=== PATIENT | male | born 1950 | race Caucasian/White ===

== ENCOUNTER 2016-04-27 09:58 | Inpatient (IN) | payer MEDICARE, OTHER ==
[2016-04-27] MEDS ORDERED: CEFTRIAXONE INJ 1000 MG VIAL IV ONE (10:45)
[2016-04-27] MEDS ORDERED: AZITHROMYCIN INJ 500 MG VIAL IV ONE (10:45)
[2016-04-27] MEDS ORDERED: NORMAL SALINE 1000 ML 1,000 ML IV PRN (10:46)
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
[2016-04-27 10:53] LABS: HEMATOCRIT 37.9 % (37.9-51.0); HEMOGLOBIN 13.3 g/dL (13.5-17.0); MEAN CORPUSCULAR HEMOGLOBIN 32.5 pg (27.0-33.4); MEAN CORPUSCULAR HGB CONC 35.1 g/dL (32.0-36.0); MEAN CORPUSCULAR VOLUME 92 fl (80-97); RED CELL DISTRIBUTION WIDTH 12.3 % (11.5-14.0); VENOUS BLOOD BASE EXCESS 2.8 mmol/L; VENOUS BLOOD HCO3 26.8 mmol/L (20-32); VENOUS BLOOD PCO2 39.2 mmHg (35-63); VENOUS BLOOD PH 7.45 (7.30-7.42); WHITE BLOOD COUNT 10.4 10^3/uL (4.0-10.5)
[2016-04-27 10:58] LABS: PROTHROMBIN TIME 13.6 SEC (11.4-15.4)
[2016-04-27 11:14] LABS: ALANINE AMINOTRANSFERASE 42 U/L (21-72); ALBUMIN 4.1 g/dL (3.5-5.0); ALKALINE PHOSPHATASE 90 U/L (38-126); ANION GAP 13 (5-19); ASPARTATE AMINO TRANSFERASE 41 U/L (17-59); BAND NEUTROPHILS % (MANUAL) 7 % (3-5); BASOPHILS % (MANUAL) 1 % (0-2); BILIRUBIN,TOTAL 0.8 mg/dL (0.2-1.3); BLOOD UREA NITROGEN 20 mg/dL (7-20); CARBON DIOXIDE 26 mmol/L (22-30); CHLORIDE 95 mmol/L (98-107); CREATININE RESULT 0.68 mg/dL (0.52-1.25); EOSINOPHILS % (MANUAL) 0 % (0-6); GLUCOSE 147 mg/dL (75-110); LYMPHOCYTES % (MANUAL) 9 % (13-45); RBC MORPHOLOGY COMMENT NORMO-CYTIC/CHROMIC; SODIUM 134.1 mmol/L (137-145); TOTAL CELLS COUNTED 100; TOTAL PROTEIN 6.6 g/dL (6.3-8.2)
[2016-04-27] MEDS ORDERED: POTASSIUM CHLORIDE 20 MEQ/15 ML UDCUP PO ONE ×2 (11:28→13:30)
[2016-04-27 15:22] LABS: APPEARANCE,URINE HAZY; BILIRUBIN,URINE NEGATIVE (NEGATIVE); GLUCOSE, URINE NEGATIVE (NEGATIVE); KETONES,URINE NEGATIVE (NEGATIVE); LEUKOCYTE ESTERASE,URINE NEGATIVE (NEGATIVE); NITRITE,URINE NEGATIVE (NEGATIVE); PROTEIN,URINE NEGATIVE (NEGATIVE); UROBILINOGEN,URINE NEGATIVE mg/dL (<2.0)
[2016-04-27 15:23] LABS: URINE SPECIFIC GRAVITY 1.012
[2016-04-27] MEDS ORDERED: OSELTAMIVIR PHOSPHATE 75 MG CAPSULE PO ONE (16:17)
[2016-04-27] MEDS ORDERED: ACETAMINOPHEN 325 MG TABLET PO PRN (16:19)
[2016-04-27] MEDS ORDERED: ASPIRIN 81 MG TABLET, ENT COATED PO PRN (16:20)
[2016-04-27] MEDS ORDERED: ALBUTEROL SULFATE HFA (90 MCG/PUFF) 8 GM MDI (1 MDI/ER DISP) IH PRN (16:20)
--- NOTE | 2016-04-27 16:24 | PDOC H&P ---
History of Present Illness Admission Date/PCP: 04/27/16 13:14 MAIDA LY MD Patient complains of: Fever History of Present Illness: EARL HAWLEY is a 65 year old male brought to the ED by EMS personnel due to reported episode of fall, unsteady stance and fever. There was associated coughing, nasal and sinus congestion and general unwell feeling. There was reported axillary temperature of 101F. Patient denied any associated difficulty with breathing, chest pain, headache, dizziness, nausea, vomiting or abdominal pain. There is long standing issue with diarrhea. The patient denies any falling although neighbor reported unsteadiness of stance. Past Medical History Cardiac Medical History: Reports: Hypertension Social History Smoking Status: Former Smoker - Advance Directive Resuscitation Status: Full Code Family History Parental Family History Reviewed: Yes Children Family History Reviewed: Yes Sibling(s) Family History Reviewed.: Yes Medication/Allergy Home Medications: Albuterol Sulfate [Proair HFA] 2 puff IH Q4HP PRN 04/27/16 Aspirin [Aspirin EC] 81 mg PO DAILY PRN 04/27/16 Hydrochlorothiazide [Hydrodiuril 25 mg Tablet] 25 mg PO QAM 04/27/16 Lisinopril [Prinivil 10 mg Tablet] 10 mg PO DAILY 04/27/16 Pnv No.122/Iron/Folic Acid [ Multi Tablet] 1 each PO DAILY 04/27/16 Allergies/Adverse Reactions: No Known Allergies Allergy (Unverified 04/27/16 14:23) Review of Systems Constitutional: PRESENT: chills, fever(s). ABSENT: as per HPI, anorexia, fatigue, headache(s), night sweats, weakness, weight gain, weight loss, other Eyes: PRESENT: visual disturbances Ears: PRESENT: hearing changes Nose, Mouth, and Throat: ABSENT: as per HPI, headache(s), mouth pain, sore throat, vertigo, other Cardiovascular: ABSENT: as per HPI, chest pain, dyspnea on exertion, edema, orthropnea, palpitations, other Gastrointestinal: PRESENT: diarrhea. ABSENT: as per HPI, abdominal pain, bloating, coffee ground emesis, constipation, dysphagia, heartburn, hematemesis , hematochezia, melena, nausea, vomiting, other Genitourinary: ABSENT: as per HPI, difficulty urinating, dysuria, hematuria, nocturia, other Musculoskeletal: ABSENT: as per HPI, back pain, deformity, joint swelling, muscle weakness, other Integumentary: ABSENT: as per HPI, diaphoresis, erythema, lesions, pruritus, rash, wounds, other Neurological: PRESENT: focal weakness - left sided hemiparesis due to prior traumatic brain injury.. ABSENT: as per HPI, abnormal gait, abnormal movements , abnormal speech, confusion, convulsions, dizziness, frequent falls, lack of coordination, memory loss, numbness, paresthesias, restless legs, syncope, tingling, tremor(s), vertigo, weakness, other Endocrine: ABSENT: as per HPI, cold intolerance, flushing, heat intolerance, menstrual abnormalities, polydipsia, polyphagia, polyuria, other Hematologic/Lymphatic: ABSENT: as per HPI, easy bleeding, easy bruising, lymphadenopathy, other Physical Exam Vital Signs: Temp Pulse Resp BP Pulse Ox 98.7 F 103 H 20 146/106 H 97 04/27/16 15:48 04/27/16 15:48 04/27/16 15:48 04/27/16 15:48 04/27/16 15:48 Intake & Output 04/26/16 04/27/16 04/28/16 06:59 06:59 06:59 Weight 107.5 kg General appearance: PRESENT: no acute distress, cooperative, obese Head exam: PRESENT: atraumatic, normocephalic Eye exam: PRESENT: conjunctiva pink, EOMI, PERRLA. ABSENT: scleral icterus Ear exam: PRESENT: normal external ear exam Mouth exam: PRESENT: moist, tongue midline Throat exam: ABSENT: post pharyngeal erythema, tonsillar erythema, tonsillar exudate, tonsillogmegaly, other Neck exam: ABSENT: carotid bruit, full ROM, JVD, lymphadenopathy, meningismus, tenderness, thyromegaly, tracheal deviation, tracheostomy, other Respiratory exam: PRESENT: crackles - scattered at lung bases, decreased breath sounds - at lung bases. ABSENT: accessory muscle use, chest wall tenderness, clear to auscultation charline, prolonged expiratory phas, rales, retraction, rhonchi , stridor, symmetrical, tachypnea, unlabored, wheezes, other Cardiovascular exam: PRESENT: RRR. ABSENT: diastolic murmur, rubs, systolic murmur GI/Abdominal exam: PRESENT: normal bowel sounds, soft. ABSENT: distended, guarding, mass, organolmegaly, rebound, tenderness Musculoskeletal exam: PRESENT: ambulatory, deformity Neurological exam: PRESENT: alert, awake, oriented to person, oriented to place , oriented to time, oriented to situation, CN II-XII grossly intact. ABSENT: motor sensory deficit Psychiatric exam: PRESENT: appropriate affect, normal mood. ABSENT: homicidal ideation, suicidal ideation Skin exam: PRESENT: dry, intact, warm. ABSENT: cyanosis, rash Results Laboratory Results: 04/27/16 14:30 Urine Color YELLOW Urine Appearance HAZY Urine pH 5.0 Ur Specific [place] 1.012 Urine Protein NEGATIVE Urine Glucose (UA) NEGATIVE Urine Ketones NEGATIVE Urine Blood MODERATE H Urine Nitrite NEGATIVE Ur Leukocyte Esterase NEGATIVE Urine WBC (Auto) 1 Urine RBC (Auto) 1 Impressions: Chest X-Ray 04/27/16 10:00 IMPRESSION: Atelectasis or early pneumonia left lower lobe. Venous Doppler Study 04/27/16 10:53 IMPRESSION: NO EVIDENCE DVT OR SVT IN THE RIGHT ARM. Assessment & Plan - Diagnosis (1) Flu Is this a current diagnosis for this admission?: YesPlan: See admitting physician orders. (2) Lobar pneumonia, unspecified organism Is this a current diagnosis for this admission?: YesPlan: See admitting physician orders. (3) HTN (hypertension) Qualifiers: Hypertension type: essential hypertension Qualified Code(s): I10 - Essential (primary) hypertension Is this a current diagnosis for this admission?: YesPlan: See admitting physician orders. (4) Personal history of traumatic brain injury Is this a current diagnosis for this admission?: YesPlan: See admitting physician orders. - Time Time Spent: 50 to 70 Minutes Medications reviewed and adjusted accordingly: Yes Anticipated discharge: Home - [facility] / [facility] environment Within: Other - Inpatient Certification Based on my medical assessment, after consideration of the patient's comorbidities, presenting symptoms, or acuity I expect that the services needed warrant INPATIENT care.: Yes I certify that my determination is in accordance with my understanding of Medicare's requirements for reasonable and necessary INPATIENT services [42 CFR 412.3e].: Yes Medical Necessity: Significant Comorbidiites Make Outpatient Treatment Too Risky , Need For IV Fluids, Need For Continuous Telemetry Monitoring, Need for Nebulizer Therapy and Monitoring of Response, Need for IV Antibiotics, Risk of Complication if Not Cared For in Hospital Post Hospital Care: D/C Program Dir Documentation - Plan Summary Plan Summary: See admitting physician orders.
--- NOTE | 2016-04-27 17:40 | EKG REPORT ---
SEVERITY:- BORDERLINE ECG - SINUS RHYTHM BORDERLINE T WAVE ABNORMALITIES : Confirmed by: Yonis Ward MD 27-Apr-2016 17:39:28
[2016-04-27 17:53] LABS: PROTHROMBIN TIME 13.2 SEC (11.4-15.4)
[2016-04-27] MEDS ORDERED: OSELTAMIVIR PHOSPHATE 75 MG CAPSULE ONE (21:06)
[2016-04-28] MEDS: LANSOPRAZOLE 30 MG TAB.RAP.DR PO SCH (05:46)
[2016-04-28 06:30] LABS: ALANINE AMINOTRANSFERASE 48 U/L (21-72); ALBUMIN 2.9 g/dL (3.5-5.0); ALKALINE PHOSPHATASE 81 U/L (38-126); ANION GAP 7 (5-19); ASPARTATE AMINO TRANSFERASE 90 U/L (17-59); BILIRUBIN,TOTAL 0.6 mg/dL (0.2-1.3); BLOOD UREA NITROGEN 19 mg/dL (7-20); CALCIUM 8.6 mg/dL (8.4-10.2); CARBON DIOXIDE 29 mmol/L (22-30); CHLORIDE 102 mmol/L (98-107); CREATININE RESULT 0.68 mg/dL (0.52-1.25); GLUCOSE 93 mg/dL (75-110); POTASSIUM 3.5 mmol/L (3.6-5.0); SODIUM 138.2 mmol/L (137-145)
[2016-04-28 06:38] LABS: HEMATOCRIT 36.9 % (37.9-51.0); HEMOGLOBIN 13.1 g/dL (13.5-17.0); HGB HCT DIFFERENCE 2.4; MEAN CORPUSCULAR HEMOGLOBIN 32.8 pg (27.0-33.4); MEAN CORPUSCULAR HGB CONC 35.6 g/dL (32.0-36.0); MEAN CORPUSCULAR VOLUME 92 fl (80-97); RED BLOOD COUNT 3.99 10^6/uL (4.35-5.55); RED CELL DISTRIBUTION WIDTH 12.6 % (11.5-14.0); WHITE BLOOD COUNT 6.6 10^3/uL (4.0-10.5)
[2016-04-28] MEDS ORDERED: ALBUTEROL SULFATE HFA (90 MCG/PUFF) 200 PUFF/8.5 GM MDI IH PRN (07:14)
[2016-04-28] MEDS: ENOXAPARIN SODIUM INJ 40 MG/0.4 ML DISP.SYRIN SUBCUT SCH (08:48)
[2016-04-28] MEDS: LISINOPRIL 10 MG TABLET PO SCH (09:43)
[2016-04-28] MEDS: ASPIRIN 81 MG TABLET, CHEWABLE PO SCH (09:43)
[2016-04-28] MEDS: CEFTRIAXONE 1 GM/D5W RTU 50 ML IV SCH (09:44)
[2016-04-28] MEDS ORDERED: (PENDING PHARMACY ID) (Pnv No.122/Iron/Folic Acid [Prenatal Multi Tablet] 1 EACH) PO SCH (10:00)
[2016-04-28] MEDS: OSELTAMIVIR PHOSPHATE 75 MG CAPSULE PO SCH ×2 (12:00→21:11)
[2016-04-28] MEDS: PRENATAL VITAMIN W-O CA NO5/FE FUMARATE/FA CAPSULE PO SCH (12:01)
[2016-04-28] MEDS: AZITHROMYCIN 500 MG in DEXTROSE 5%-WATER 250 ML IV SCH (12:01)
--- NOTE | 2016-04-28 12:56 | PDOC PROGRESS REPORT ---
Subjective Progress Note for:: 04/28/16 Subjective:: Patient reported resolution of his fever since admission. Breathing is improving. No chest pain. No nausea, vomiting, or abdominal pain. Tolerating oral feeding. Remain on Tamiflu, Azithromycin and Ceftriaxone coverage. Physical Exam Vital Signs: Temp Pulse Resp BP Pulse Ox 98.2 F 82 18 97/56 L 94 04/28/16 12:19 04/28/16 12:19 04/28/16 12:19 04/28/16 12:19 04/28/16 12:19 Intake & Output 04/27/16 04/28/16 04/29/16 06:59 06:59 06:59 Intake Total 1824 Output Total 400 Balance 1424 Weight 109.8 kg General appearance: PRESENT: no acute distress, cooperative, morbidly obese Head exam: PRESENT: atraumatic, normocephalic Eye exam: PRESENT: conjunctiva pink, EOMI, PERRLA Mouth exam: PRESENT: moist Throat exam: ABSENT: post pharyngeal erythema, tonsillar erythema, tonsillar exudate, tonsillogmegaly, other Neck exam: PRESENT: full ROM. ABSENT: carotid bruit, JVD, lymphadenopathy, thyromegaly Respiratory exam: PRESENT: crackles - at lung bases, decreased breath sounds - at lung bases Cardiovascular exam: PRESENT: RRR. ABSENT: diastolic murmur, rubs, systolic murmur GI/Abdominal exam: PRESENT: normal bowel sounds, soft. ABSENT: distended, guarding, mass, organolmegaly, rebound, tenderness Extremities exam: PRESENT: full ROM Musculoskeletal exam: PRESENT: deformity - due to prior injury Neurological exam: PRESENT: alert, awake, CN II-XII grossly intact, motor sensory deficit Psychiatric exam: PRESENT: appropriate affect, normal mood. ABSENT: homicidal ideation, suicidal ideation Skin exam: PRESENT: dry, intact, warm. ABSENT: cyanosis, rash Results Laboratory Results: 04/28/16 05:37 04/28/16 05:37 04/28/16 04/28/16 05:37 05:37 WBC 6.6 RBC 3.99 L Hgb 13.1 L Hct 36.9 L MCV 92 MCH 32.8 MCHC 35.6 RDW 12.6 Plt Count 122 L Seg Neutrophils % Not Reportable Lymphocytes % Not Reportable Monocytes % Not Reportable Eosinophils % Not Reportable Basophils % Not Reportable Absolute Neutrophils Not Reportable Absolute Lymphocytes Not Reportable Absolute Monocytes Not Reportable Absolute Eosinophils Not Reportable Absolute Basophils Not Reportable Sodium 138.2 Potassium 3.5 L Chloride 102 Carbon Dioxide 29 Anion Gap 7 BUN 19 Creatinine 0.68 Est GFR ( Amer) > 60 Est GFR (Non-Af Amer) > 60 Glucose 93 Calcium 8.6 Total Bilirubin 0.6 AST 90 H ALT 48 Alkaline Phosphatase 81 Total Protein 6.0 L Albumin 2.9 L Impressions: Chest X-Ray 04/27/16 10:00 IMPRESSION: Atelectasis or early pneumonia left lower lobe. Venous Doppler Study 04/27/16 10:53 IMPRESSION: NO EVIDENCE DVT OR SVT IN THE RIGHT ARM. Assessment & Plan - Diagnosis (1) Flu Is this a current diagnosis for this admission?: YesPlan: Continue Tamiflu therapy and encourage adequate oral fluid intake. (2) Lobar pneumonia, unspecified organism Is this a current diagnosis for this admission?: YesPlan: Maintain on Azithromycin and Ceftriaxone coverage. Monitor clinical and laboratory indices for ongoing infection. (3) HTN (hypertension) Qualifiers: Hypertension type: essential hypertension Qualified Code(s): I10 - Essential (primary) hypertension Is this a current diagnosis for this admission?: YesPlan: Maintain on current mediation management. (4) Personal history of traumatic brain injury Is this a current diagnosis for this admission?: Yes - Time Time Spent with patient: 25-34 minutes Medications reviewed and adjusted accordingly: Yes Anticipated discharge: Home with Homehealth - Inpatient Certification Medical Necessity: Need Close Monitoring Due to Risk of Patient Decompensation, Need For IV Fluids, Need For Continuous Telemetry Monitoring, Need for IV Antibiotics, Risk of Complication if Not Cared For in Hospital Post Hospital Care: D/C [employer] Worker Documentation - Plan Summary Plan Summary: See attending physician orders.
[2016-04-28] MEDS ORDERED: POTASSIUM CHLORIDE 10 MEQ TABLET.SA PO ONE (13:30)
[2016-04-28] MEDS: POTASSIUM CHLORIDE 10 MEQ TABLET.SA PO SCH ×2 (15:06→17:10)
[2016-04-29] MEDS: LANSOPRAZOLE 30 MG TAB.RAP.DR PO SCH (05:38)
[2016-04-29 06:47] LABS: ABSOLUTE EOSINOPHILS # (AUTO) 0.1 10^3/uL (0.0-0.6); ABSOLUTE LYMPHOCYTES (AUTO) 1.5 10^3/uL (0.5-4.7); ABSOLUTE MONOCYTES (AUTO) 0.4 10^3/uL (0.1-1.4); ABSOLUTE NEUT (AUTO) 2.8 10^3/uL (1.7-8.2); BASOPHILS % (AUTO) 0.5 % (0-2); EOSINOPHILS % (AUTO) 2.3 % (0-6); HEMATOCRIT 34.1 % (37.9-51.0); HEMOGLOBIN 11.7 g/dL (13.5-17.0); LYMPHOCYTES % (AUTO) 30.4 % (13-45); MEAN CORPUSCULAR HEMOGLOBIN 32.3 pg (27.0-33.4); MEAN CORPUSCULAR HGB CONC 34.4 g/dL (32.0-36.0); MEAN CORPUSCULAR VOLUME 94 fl (80-97); MONOCYTES % (AUTO) 8.9 % (3-13); RED BLOOD COUNT 3.63 10^6/uL (4.35-5.55); SEGMENTED NEUTROPHILS % (AUTO) 57.9 % (42-78); WHITE BLOOD COUNT 4.8 10^3/uL (4.0-10.5)
[2016-04-29 07:10] LABS: ANION GAP 7 (5-19); BLOOD UREA NITROGEN 19 mg/dL (7-20); CALCIUM 8.7 mg/dL (8.4-10.2); CARBON DIOXIDE 28 mmol/L (22-30); CHLORIDE 105 mmol/L (98-107); CREATININE RESULT 0.61 mg/dL (0.52-1.25); GLUCOSE 93 mg/dL (75-110); POTASSIUM 4.2 mmol/L (3.6-5.0); SODIUM 139.7 mmol/L (137-145)
--- NOTE | 2016-04-29 07:11 | PDOC PROGRESS REPORT ---
Subjective Progress Note for:: 04/29/16 Subjective:: No fever or chills. No difficulty with breathing or chest pain. No nausea, vomiting, or abdominal pain. Tolerating oral feeding. Remain on Tamiflu, Azithromycin and Ceftriaxone coverage. Physical Exam Vital Signs: Temp Pulse Resp BP Pulse Ox 98.0 F 80 17 120/64 97 04/29/16 03:20 04/29/16 03:20 04/29/16 03:20 04/29/16 03:20 04/29/16 03:20 Intake & Output 04/28/16 04/29/16 04/30/16 06:59 06:59 06:59 Intake Total 1824 4830 Output Total 400 900 Balance 1424 3930 Weight 109.8 kg 109.8 kg Physical Exam: General appearance: PRESENT: no acute distress, cooperative, morbidly obese Head exam: PRESENT: atraumatic, normocephalic Eye exam: PRESENT: conjunctiva pink, EOMI, PERRLA Mouth exam: PRESENT: moist Throat exam: ABSENT: post pharyngeal erythema, tonsillar erythema, tonsillar exudate, tonsillogmegaly, other Neck exam: PRESENT: full ROM. ABSENT: carotid bruit, JVD, lymphadenopathy, thyromegaly Respiratory exam: PRESENT: crackles - at lung bases, decreased breath sounds - at lung bases Cardiovascular exam: PRESENT: RRR. ABSENT: diastolic murmur, rubs, systolic murmur GI/Abdominal exam: PRESENT: normal bowel sounds, soft. ABSENT: distended, guarding, mass, organolmegaly, rebound, tenderness Extremities exam: PRESENT: full ROM Musculoskeletal exam: PRESENT: deformity - due to prior injury Neurological exam: PRESENT: alert, awake, CN II-XII grossly intact, motor sensory deficit Psychiatric exam: PRESENT: appropriate affect, normal mood. ABSENT: homicidal ideation, suicidal ideation Skin exam: PRESENT: dry, intact, warm. ABSENT: cyanosis, rash Results Laboratory Results: 04/29/16 06:34 04/28/16 04/29/16 05:37 06:34 WBC 4.8 RBC 3.63 L Hgb 11.7 L Hct 34.1 L MCV 94 MCH 32.3 MCHC 34.4 RDW 13.0 Plt Count 110 L Seg Neutrophils % 57.9 Lymphocytes % 30.4 Monocytes % 8.9 Eosinophils % 2.3 Basophils % 0.5 Absolute Neutrophils 2.8 Absolute Lymphocytes 1.5 Absolute Monocytes 0.4 Absolute Eosinophils 0.1 Absolute Basophils 0.0 Magnesium 1.9 Impressions: Chest X-Ray 04/27/16 10:00 IMPRESSION: Atelectasis or early pneumonia left lower lobe. Venous Doppler Study 04/27/16 10:53 IMPRESSION: NO EVIDENCE DVT OR SVT IN THE RIGHT ARM. Assessment & Plan - Diagnosis (1) Flu Is this a current diagnosis for this admission?: YesPlan: Continue Tamiflu therapy and encourage adequate oral fluid intake. (2) Lobar pneumonia, unspecified organism Is this a current diagnosis for this admission?: YesPlan: Maintain on Azithromycin and Ceftriaxone coverage. Monitor clinical and laboratory indices for ongoing infection. (3) HTN (hypertension) Qualifiers: Hypertension type: essential hypertension Qualified Code(s): I10 - Essential (primary) hypertension Is this a current diagnosis for this admission?: YesPlan: Maintain on current mediation management. (4) Personal history of traumatic brain injury Is this a current diagnosis for this admission?: YesPlan: Continue current attending physician orders. - Time Time Spent with patient: 25-34 minutes Medications reviewed and adjusted accordingly: Yes Anticipated discharge: Home with Homehealth Within: Other - Inpatient Certification Based on my medical assessment, after consideration of the patient's comorbidities, presenting symptoms, or acuity I expect that the services needed warrant INPATIENT care.: Yes I certify that my determination is in accordance with my understanding of Medicare's requirements for reasonable and necessary INPATIENT services [42 CFR 412.3e].: Yes Medical Necessity: Need Close Monitoring Due to Risk of Patient Decompensation, Need For IV Fluids, Need for IV Antibiotics, Risk of Complication if Not Cared For in Hospital Post Hospital Care: D/C Central Office Supervisor Documentation - Plan Summary Plan Summary: See attending physician orders
[2016-04-29] MEDS: ENOXAPARIN SODIUM INJ 40 MG/0.4 ML DISP.SYRIN SUBCUT SCH (08:56)
[2016-04-29] MEDS: CEFTRIAXONE 1 GM/D5W RTU 50 ML IV SCH (09:55)
[2016-04-29] MEDS: PRENATAL VITAMIN W-O CA NO5/FE FUMARATE/FA CAPSULE PO SCH (10:00)
[2016-04-29] MEDS: OSELTAMIVIR PHOSPHATE 75 MG CAPSULE PO SCH ×2 (10:01→21:54)
[2016-04-29] MEDS: ASPIRIN 81 MG TABLET, CHEWABLE PO SCH (10:01)
[2016-04-29] MEDS: LISINOPRIL 10 MG TABLET PO SCH (10:02)
[2016-04-29] MEDS: AZITHROMYCIN 500 MG in DEXTROSE 5%-WATER 250 ML IV SCH (11:12)
[2016-04-30] MEDS: NORMAL SALINE 1000 ML 1,000 ML IV PRN ×2 (05:05→16:11)
[2016-04-30] MEDS: LANSOPRAZOLE 30 MG TAB.RAP.DR PO SCH (05:05)
--- NOTE | 2016-04-30 07:25 | PDOC PROGRESS REPORT ---
Subjective Progress Note for:: 04/30/16 Subjective:: No fever or chills. No difficulty with breathing or chest pain. No nausea, vomiting, or abdominal pain. Tolerating oral feeding. Remain on Azithromycin, Ceftriaxone, and Tamiflu coverage. Physical Exam Vital Signs: Temp Pulse Resp BP Pulse Ox 98.1 F 74 18 130/80 H 95 04/30/16 04:17 04/30/16 04:17 04/30/16 04:17 04/30/16 04:17 04/30/16 04:17 Intake & Output 04/29/16 04/30/16 05/01/16 06:59 06:59 06:59 Intake Total 4830 4307 Output Total 900 1425 Balance 3930 2882 Weight 109.8 kg 109.8 kg General appearance: PRESENT: no acute distress, obese Eye exam: PRESENT: conjunctiva pink, EOMI, PERRLA Mouth exam: PRESENT: moist Neck exam: PRESENT: full ROM. ABSENT: carotid bruit, JVD, lymphadenopathy, thyromegaly Respiratory exam: ABSENT: accessory muscle use, chest wall tenderness, clear to auscultation charline, crackles, decreased breath sounds, prolonged expiratory phas, rales, retraction, rhonchi, stridor, symmetrical, tachypnea, unlabored, wheezes , other Cardiovascular exam: PRESENT: RRR. ABSENT: diastolic murmur, rubs, systolic murmur GI/Abdominal exam: PRESENT: normal bowel sounds, soft. 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 ABSENT: homicidal ideation, suicidal ideation Skin exam: PRESENT: dry, intact, warm. ABSENT: cyanosis, rash Results Laboratory Results: 04/29/16 06:34 04/29/16 06:34 Impressions: Chest X-Ray 04/27/16 10:00 IMPRESSION: Atelectasis or early pneumonia left lower lobe. Venous Doppler Study 04/27/16 10:53 IMPRESSION: NO EVIDENCE DVT OR SVT IN THE RIGHT ARM. Assessment & Plan - Diagnosis (1) Flu Is this a current diagnosis for this admission?: YesPlan: Continue Tamiflu therapy and encourage adequate oral fluid intake. (2) Lobar pneumonia, unspecified organism Is this a current diagnosis for this admission?: YesPlan: Maintain on IV Ceftriaxone coverage. Change to oral Azithromycin 5000mg po daily. Monitor clinical and laboratory indices for ongoing infection. (3) HTN (hypertension) Qualifiers: Hypertension type: essential hypertension Qualified Code(s): I10 - Essential (primary) hypertension Is this a current diagnosis for this admission?: YesPlan: Maintain on current mediation management. (4) Personal history of traumatic brain injury Is this a current diagnosis for this admission?: YesPlan: Continue current attending physician orders. PT evaluation for ambulatory safety. - Time Time Spent with patient: 25-34 minutes Medications reviewed and adjusted accordingly: Yes Anticipated discharge: Home with Homehealth - Inpatient Certification Medical Necessity: Need Close Monitoring Due to Risk of Patient Decompensation, Need For IV Fluids, Need for IV Antibiotics, Risk of Complication if Not Cared For in Hospital - Plan Summary Plan Summary: See attending physician orders.
[2016-04-30] MEDS: ENOXAPARIN SODIUM INJ 40 MG/0.4 ML DISP.SYRIN SUBCUT SCH (11:27)
[2016-04-30] MEDS: ASPIRIN 81 MG TABLET, CHEWABLE PO SCH (11:28)
[2016-04-30] MEDS: LISINOPRIL 10 MG TABLET PO SCH (11:29)
[2016-04-30] MEDS: AZITHROMYCIN 250 MG TABLET PO SCH (11:30)
[2016-04-30] MEDS: OSELTAMIVIR PHOSPHATE 75 MG CAPSULE PO SCH ×2 (11:30→22:12)
[2016-04-30] MEDS: PRENATAL VITAMIN W-O CA NO5/FE FUMARATE/FA CAPSULE PO SCH (11:30)
[2016-04-30] MEDS: CEFTRIAXONE 1 GM/D5W RTU 50 ML IV SCH (11:34)
[2016-05-01] MEDS: LANSOPRAZOLE 30 MG TAB.RAP.DR PO SCH (06:17)
[2016-05-01] MEDS: CEFTRIAXONE 1 GM/D5W RTU 50 ML IV SCH (09:33)
[2016-05-01] MEDS: PRENATAL VITAMIN W-O CA NO5/FE FUMARATE/FA CAPSULE PO SCH (09:33)
[2016-05-01] MEDS: OSELTAMIVIR PHOSPHATE 75 MG CAPSULE PO SCH ×2 (09:33→22:28)
[2016-05-01] MEDS: LISINOPRIL 10 MG TABLET PO SCH (09:33)
[2016-05-01] MEDS: ASPIRIN 81 MG TABLET, CHEWABLE PO SCH (09:33)
[2016-05-01] MEDS: AZITHROMYCIN 250 MG TABLET PO SCH (09:33)
[2016-05-01] MEDS: ENOXAPARIN SODIUM INJ 40 MG/0.4 ML DISP.SYRIN SUBCUT SCH (09:34)
--- NOTE | 2016-05-01 18:37 | PDOC PROGRESS REPORT ---
Subjective Progress Note for:: 05/01/16 Subjective:: No fever or chills. No chest pain or difficulty with breathing. No nausea, vomiting, or abdominal pain. Tolerating oral feeding. Remain on Tamiflu, Azithromycin, and Ceftriaxone coverage. Blood culture is no growth x 4 days. Physical Exam Vital Signs: Temp Pulse Resp BP Pulse Ox 98.4 F 76 16 148/68 H 97 05/01/16 15:21 05/01/16 15:21 05/01/16 15:21 05/01/16 15:21 05/01/16 17:59 Intake & Output 04/30/16 05/01/16 05/02/16 06:59 06:59 06:59 Intake Total 4307 3420 Output Total 1425 1900 Balance 2882 1520 Weight 109.8 kg Physical Exam: General appearance: PRESENT: no acute distress, obese Eye exam: PRESENT: conjunctiva pink, EOMI, PERRLA Mouth exam: PRESENT: moist Neck exam: PRESENT: full ROM. ABSENT: carotid bruit, JVD, lymphadenopathy, thyromegaly Respiratory exam: ABSENT: accessory muscle use, chest wall tenderness, clear to auscultation charline, crackles, decreased breath sounds, prolonged expiratory phase , rales, retraction, rhonchi, stridor, symmetrical, tachypnea, unlabored, wheezes, other Cardiovascular exam: PRESENT: RRR. ABSENT: diastolic murmur, rubs, systolic murmur GI/Abdominal exam: PRESENT: normal bowel sounds, soft. 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 ABSENT: homicidal ideation, suicidal ideation Skin exam: PRESENT: dry, intact, warm. ABSENT: cyanosis, rash Results Laboratory Results: 04/29/16 06:34 04/29/16 06:34 Impressions: Chest X-Ray 04/27/16 10:00 IMPRESSION: Atelectasis or early pneumonia left lower lobe. Venous Doppler Study 04/27/16 10:53 IMPRESSION: NO EVIDENCE DVT OR SVT IN THE RIGHT ARM. Assessment & Plan - Diagnosis (1) Flu Is this a current diagnosis for this admission?: YesPlan: Continue Tamiflu therapy and encourage adequate oral fluid intake. (2) Lobar pneumonia, unspecified organism Is this a current diagnosis for this admission?: YesPlan: Maintain on IV Ceftriaxone and oral Azithromycin coverage. Monitor clinical and laboratory indices for ongoing infection. (3) HTN (hypertension) Qualifiers: Hypertension type: essential hypertension Qualified Code(s): I10 - Essential (primary) hypertension Is this a current diagnosis for this admission?: YesPlan: Maintain on current mediation management. (4) Personal history of traumatic brain injury Is this a current diagnosis for this admission?: YesPlan: Continue current attending physician orders. - Time Time Spent with patient: 25-34 minutes Medications reviewed and adjusted accordingly: Yes - Inpatient Certification Based on my medical assessment, after consideration of the patient's comorbidities, presenting symptoms, or acuity I expect that the services needed warrant INPATIENT care.: Yes I certify that my determination is in accordance with my understanding of Medicare's requirements for reasonable and necessary INPATIENT services [42 CFR 412.3e].: Yes Medical Necessity: Need Close Monitoring Due to Risk of Patient Decompensation, Need For IV Fluids, Need For Continuous Telemetry Monitoring, Need for IV Antibiotics, Risk of Complication if Not Cared For in Hospital 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
[2016-05-02 04:59] LABS: ABSOLUTE EOSINOPHILS # (AUTO) 0.3 10^3/uL (0.0-0.6); ABSOLUTE LYMPHOCYTES (AUTO) 1.8 10^3/uL (0.5-4.7); ABSOLUTE MONOCYTES (AUTO) 0.5 10^3/uL (0.1-1.4); ABSOLUTE NEUT (AUTO) 4.4 10^3/uL (1.7-8.2); BASOPHILS % (AUTO) 0.6 % (0-2); EOSINOPHILS % (AUTO) 4.6 % (0-6); HEMATOCRIT 34.9 % (37.9-51.0); HGB HCT DIFFERENCE 1.1; LYMPHOCYTES % (AUTO) 25.5 % (13-45); MEAN CORPUSCULAR HEMOGLOBIN 32.1 pg (27.0-33.4); MEAN CORPUSCULAR HGB CONC 34.3 g/dL (32.0-36.0); MEAN CORPUSCULAR VOLUME 94 fl (80-97); MONOCYTES % (AUTO) 7.1 % (3-13); RED BLOOD COUNT 3.72 10^6/uL (4.35-5.55); RED CELL DISTRIBUTION WIDTH 12.8 % (11.5-14.0); SEGMENTED NEUTROPHILS % (AUTO) 62.2 % (42-78); WHITE BLOOD COUNT 7.1 10^3/uL (4.0-10.5)
[2016-05-02] MEDS: LANSOPRAZOLE 30 MG TAB.RAP.DR PO SCH (07:11)
[2016-05-02] MEDS: ENOXAPARIN SODIUM INJ 40 MG/0.4 ML DISP.SYRIN SUBCUT SCH (11:07)
[2016-05-02] MEDS: LISINOPRIL 10 MG TABLET PO SCH (11:08)
[2016-05-02] MEDS: ASPIRIN 81 MG TABLET, CHEWABLE PO SCH (11:08)
[2016-05-02] MEDS: OSELTAMIVIR PHOSPHATE 75 MG CAPSULE PO SCH ×2 (11:08→21:30)
[2016-05-02] MEDS: PRENATAL VITAMIN W-O CA NO5/FE FUMARATE/FA CAPSULE PO SCH (11:08)
[2016-05-02] MEDS: CEFTRIAXONE 1 GM/D5W RTU 50 ML IV SCH (11:09)
[2016-05-02] MEDS: AZITHROMYCIN 250 MG TABLET PO SCH (11:09)
--- NOTE | 2016-05-02 16:45 | PDOC PROGRESS REPORT ---
Subjective Progress Note for:: 05/02/16 Subjective:: No fever or chills. No chest pain or difficulty with breathing. No nausea, vomiting, or abdominal pain. Tolerating oral feeding. Remain on Tamiflu, Azithromycin, and Ceftriaxone coverage. Blood culture is no growth x 4 days. Physical Exam Vital Signs: Temp Pulse Resp BP Pulse Ox 97.9 F 76 18 159/85 H 94 05/02/16 16:04 05/02/16 16:04 05/02/16 16:04 05/02/16 16:04 05/02/16 16:04 Intake & Output 05/01/16 05/02/16 05/03/16 06:59 06:59 06:59 Intake Total 3420 3760 Output Total 1900 1150 Balance 1520 2610 Physical Exam: General appearance: PRESENT: no acute distress, obese Eye exam: PRESENT: conjunctiva pink, EOMI, PERRLA Mouth exam: PRESENT: moist Neck exam: PRESENT: full ROM. ABSENT: carotid bruit, JVD, lymphadenopathy, thyromegaly Respiratory exam: ABSENT: accessory muscle use, chest wall tenderness, clear to auscultation charline, crackles, decreased breath sounds, prolonged expiratory phase , rales, retraction, rhonchi, stridor, symmetrical, tachypnea, unlabored, wheezes, other Cardiovascular exam: PRESENT: RRR. ABSENT: diastolic murmur, rubs, systolic murmur GI/Abdominal exam: PRESENT: normal bowel sounds, soft. 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 ABSENT: homicidal ideation, suicidal ideation Skin exam: PRESENT: dry, intact, warm. ABSENT: cyanosis, rash Results Laboratory Results: 05/02/16 04:48 04/29/16 06:34 05/02/16 04:48 WBC 7.1 RBC 3.72 L Hgb 12.0 L Hct 34.9 L MCV 94 MCH 32.1 MCHC 34.3 RDW 12.8 Plt Count 125 L Seg Neutrophils % 62.2 Lymphocytes % 25.5 Monocytes % 7.1 Eosinophils % 4.6 Basophils % 0.6 Absolute Neutrophils 4.4 Absolute Lymphocytes 1.8 Absolute Monocytes 0.5 Absolute Eosinophils 0.3 Absolute Basophils 0.0 Impressions: Chest X-Ray 04/27/16 10:00 IMPRESSION: Atelectasis or early pneumonia left lower lobe. Venous Doppler Study 04/27/16 10:53 IMPRESSION: NO EVIDENCE DVT OR SVT IN THE RIGHT ARM. Assessment & Plan - Diagnosis (1) Flu Is this a current diagnosis for this admission?: YesPlan: Continue Tamiflu therapy and encourage adequate oral fluid intake. (2) Lobar pneumonia, unspecified organism Is this a current diagnosis for this admission?: YesPlan: Maintain on IV Ceftriaxone and oral Azithromycin coverage. Monitor clinical and laboratory indices for ongoing infection. (3) HTN (hypertension) Qualifiers: Hypertension type: essential hypertension Qualified Code(s): I10 - Essential (primary) hypertension Is this a current diagnosis for this admission?: YesPlan: Maintain on current mediation management. (4) Personal history of traumatic brain injury Is this a current diagnosis for this admission?: YesPlan: Continue current attending physician orders. - Time Time Spent with patient: 25-34 minutes Medications reviewed and adjusted accordingly: Yes Within: within 48 hours - Inpatient Certification Post Hospital Care: D/C or Transfer Summary - Plan Summary Plan Summary: see attending physician orders.
[2016-05-02] MEDS: NORMAL SALINE 1000 ML 1,000 ML IV PRN (21:30)
[2016-05-03] MEDS: LANSOPRAZOLE 30 MG TAB.RAP.DR PO SCH (05:10)
[2016-05-03] MEDS: PRENATAL VITAMIN W-O CA NO5/FE FUMARATE/FA CAPSULE PO SCH (09:45)
[2016-05-03] MEDS: CEFTRIAXONE 1 GM/D5W RTU 50 ML IV SCH (09:45)
[2016-05-03] MEDS: AZITHROMYCIN 250 MG TABLET PO SCH (09:46)
[2016-05-03] MEDS: ASPIRIN 81 MG TABLET, CHEWABLE PO SCH (09:46)
[2016-05-03] MEDS: LISINOPRIL 10 MG TABLET PO SCH (09:46)
[2016-05-03] MEDS: ENOXAPARIN SODIUM INJ 40 MG/0.4 ML DISP.SYRIN SUBCUT SCH (09:50)
--- NOTE | 2016-05-03 16:42 | PDOC PROGRESS REPORT ---
Subjective Progress Note for:: 05/03/16 Subjective:: Patient was seen by the bedside, he was admitted because of influenza and pneumonia, he is on IV antibiotic and also Tamiflu. Physical Exam Vital Signs: Temp Pulse Resp BP Pulse Ox 97.1 F 72 18 154/82 H 97 05/03/16 15:36 05/03/16 15:36 05/03/16 15:36 05/03/16 15:36 05/03/16 15:36 Intake & Output 05/02/16 05/03/16 05/04/16 06:59 06:59 06:59 Intake Total 3760 2491 850 Output Total 1150 1350 600 Balance 2610 1141 250 General appearance: PRESENT: no acute distress Eye exam: PRESENT: PERRLA Respiratory exam: PRESENT: crackles Cardiovascular exam: PRESENT: +S1, +S2 GI/Abdominal exam: PRESENT: soft Neurological exam: PRESENT: alert, CN II-XII grossly intact Results Laboratory Results: 05/02/16 04:48 04/29/16 06:34 Impressions: Chest X-Ray 04/27/16 10:00 IMPRESSION: Atelectasis or early pneumonia left lower lobe. Venous Doppler Study 04/27/16 10:53 IMPRESSION: NO EVIDENCE DVT OR SVT IN THE RIGHT ARM. Assessment & Plan - Diagnosis (1) Lobar pneumonia, unspecified organism Is this a current diagnosis for this admission?: YesPlan: Continue IV antibiotic (2) Flu Is this a current diagnosis for this admission?: Yes (3) HTN (hypertension) Qualifiers: Hypertension type: essential hypertension Qualified Code(s): I10 - Essential (primary) hypertension Is this a current diagnosis for this admission?: Yes (4) Personal history of traumatic brain injury Is this a current diagnosis for this admission?: Yes
[2016-05-04] MEDS: NORMAL SALINE 1000 ML 1,000 ML IV PRN (05:18)
[2016-05-04] MEDS: LANSOPRAZOLE 30 MG TAB.RAP.DR PO SCH (05:18)
[2016-05-04] MEDS: AZITHROMYCIN 250 MG TABLET PO SCH (11:46)
[2016-05-04] MEDS: LISINOPRIL 10 MG TABLET PO SCH (11:46)
[2016-05-04] MEDS: ASPIRIN 81 MG TABLET, CHEWABLE PO SCH (11:46)
[2016-05-04] MEDS: PRENATAL VITAMIN W-O CA NO5/FE FUMARATE/FA CAPSULE PO SCH (11:46)
[2016-05-04] MEDS: CEFTRIAXONE 1 GM/D5W RTU 50 ML IV SCH (11:46)
[2016-05-04] MEDS: ENOXAPARIN SODIUM INJ 40 MG/0.4 ML DISP.SYRIN SUBCUT SCH (11:47)
--- NOTE | 2016-05-04 17:30 | PDOC PROGRESS REPORT ---
Subjective Progress Note for:: 05/04/16 Subjective:: Patient seen by the bedside, he is responding to treatment. He has no new complaints today Physical Exam Vital Signs: Temp Pulse Resp BP Pulse Ox 98.0 F 84 18 151/82 H 94 05/04/16 15:27 05/04/16 15:27 05/04/16 15:27 05/04/16 15:27 05/04/16 15:27 Intake & Output 05/03/16 05/04/16 05/05/16 06:59 06:59 06:59 Intake Total 2491 2470 1200 Output Total 1350 1450 1000 Balance 1141 1020 200 General appearance: PRESENT: no acute distress Eye exam: PRESENT: PERRLA Respiratory exam: PRESENT: rales Cardiovascular exam: PRESENT: +S1, +S2 GI/Abdominal exam: PRESENT: soft Neurological exam: PRESENT: alert Results Laboratory Results: 05/02/16 04:48 04/29/16 06:34 Impressions: Chest X-Ray 04/27/16 10:00 IMPRESSION: Atelectasis or early pneumonia left lower lobe. Venous Doppler Study 04/27/16 10:53 IMPRESSION: NO EVIDENCE DVT OR SVT IN THE RIGHT ARM. Assessment & Plan - Diagnosis (1) Lobar pneumonia, unspecified organism Is this a current diagnosis for this admission?: Yes (2) Flu Is this a current diagnosis for this admission?: Yes (3) HTN (hypertension) Qualifiers: Hypertension type: essential hypertension Qualified Code(s): I10 - Essential (primary) hypertension Is this a current diagnosis for this admission?: Yes (4) Personal history of traumatic brain injury Is this a current diagnosis for this admission?: Yes
[2016-05-05] MEDS: NORMAL SALINE 1000 ML 1,000 ML IV PRN (02:43)
[2016-05-05] MEDS: LANSOPRAZOLE 30 MG TAB.RAP.DR PO SCH (06:01)
--- NOTE | 2016-05-05 07:55 | PDOC DISCHARGE SUMMARY ---
General - Admit/Disc Date/PCP Admission Date/Primary Care Provider: 04/27/16 16:12 Discharge Date: 05/05/16 - Discharge Diagnosis (1) Flu Is this a current diagnosis for this admission?: Yes (2) Lobar pneumonia, unspecified organism Is this a current diagnosis for this admission?: Yes (3) HTN (hypertension) Is this a current diagnosis for this admission?: Yes (4) Personal history of traumatic brain injury Is this a current diagnosis for this admission?: Yes - Additional Information Resuscitation Status: Full Code Discharge Diet: Cardiac Discharge Activity: Activity As Tolerated Home Medications: Albuterol Sulfate [Proair HFA] 2 puff IH Q4HP PRN 04/27/16 Aspirin [Aspirin EC] 81 mg PO DAILY PRN 04/27/16 Hydrochlorothiazide [Hydrodiuril 25 mg Tablet] 25 mg PO QAM 04/27/16 Lisinopril [Prinivil 10 mg Tablet] 10 mg PO DAILY 04/27/16 Pnv No.122/Iron/Folic Acid [ Multi Tablet] 1 each PO DAILY 04/27/16 History of Present Illness Patient complains of: Fever, unsteady stance and fall History of Present Illness: EARL HAWLEY is a 65 year old male brought to the ED by EMS personnel due to reported episode of fall, unsteady stance and fever. There was associated coughing, nasal and sinus congestion and general unwell feeling. There was reported axillary temperature of 101F. Patient denied any associated difficulty with breathing, chest pain, headache, dizziness, nausea, vomiting or abdominal pain. There is long standing issue with diarrhea. The patient denies any falling although neighbor reported unsteadiness of stance. Hospital Course Hospital Course: Patient was diagnosed with Flu and lobar pneumonia. He responded to Tamiflu, Ceftriaxone and Azithromycin therapy. Fever did resolved. Ambulation was limited due to his gait abnormality from prior traumatic brain injury. He remain afebrile x 48 hours. Had adequate antibiotic and antiviral therapy. Agreeable to discharge home today with home health agency services including visiting nurse. physical therapy for home safety check and rehabilitation and household personal assistant. He will follow up in office as instructed upon discharge. Physical Exam Vital Signs: Temp Pulse Resp BP Pulse Ox 97.7 F 60 16 152/74 H 99 05/05/16 05:12 05/05/16 07:00 05/05/16 05:12 05/05/16 05:12 05/05/16 05:12 Intake & Output 05/04/16 05/05/16 05/06/16 06:59 06:59 06:59 Intake Total 2470 4002 Output Total 1450 1350 Balance 1020 2652 Physical Exam: General appearance: PRESENT: no acute distress, obese Eye exam: PRESENT: conjunctiva pink, EOMI, PERRLA Mouth exam: PRESENT: moist Neck exam: PRESENT: full ROM. ABSENT: carotid bruit, JVD, lymphadenopathy, thyromegaly Respiratory exam: ABSENT: accessory muscle use, chest wall tenderness, clear to auscultation charline, crackles, decreased breath sounds, prolonged expiratory phase , rales, retraction, rhonchi, stridor, symmetrical, tachypnea, unlabored, wheezes, other Cardiovascular exam: PRESENT: RRR. ABSENT: diastolic murmur, rubs, systolic murmur GI/Abdominal exam: PRESENT: normal bowel sounds, soft. 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 ABSENT: homicidal ideation, suicidal ideation Skin exam: PRESENT: dry, intact, warm. ABSENT: cyanosis, rash Results Laboratory Results: 05/02/16 04:48 04/29/16 06:34 Impressions: Chest X-Ray 04/27/16 10:00 IMPRESSION: Atelectasis or early pneumonia left lower lobe. Venous Doppler Study 04/27/16 10:53 IMPRESSION: NO EVIDENCE DVT OR SVT IN THE RIGHT ARM. Qualifiers [facility]INT BEING DISCHARGED WITH ANY OF THE FOLLOWING DIAGNOSIS?: No Plan Discharge Plan: Discharge home today with CHILD NUTRITION MANAGER for VN, PT and PCS. Follow up in office as instructed upon discharge. Time Spent: Less than 30 Minutes
[2016-05-05] MEDS: LISINOPRIL 10 MG TABLET PO SCH (10:14)
[2016-05-05] MEDS: ENOXAPARIN SODIUM INJ 40 MG/0.4 ML DISP.SYRIN SUBCUT SCH (10:16)
[2016-05-05] MEDS: ASPIRIN 81 MG TABLET, CHEWABLE PO SCH (10:16)
[2016-05-05] MEDS: AZITHROMYCIN 250 MG TABLET PO SCH (10:16)
[2016-05-05] MEDS: PRENATAL VITAMIN W-O CA NO5/FE FUMARATE/FA CAPSULE PO SCH (10:16)
[2016-05-05 13:46] VITALS: BP 150/92
== END 2016-05-05 15:20 | disposition home health service (06) | DRG 194 ==
LOC: ER 09:58 → EH 13:14 → UNDOADMIN 13:14 → EH 15:15 → 5 15:15 → EH 16:12 → 5 19:55
PROVIDERS: ADMIT Internal Medicine Geriatric Medicine; ATTEND Internal Medicine Geriatric Medicine
DX: J18.9 Pneumonia, unspecified organism (principal); G81.94 Hemiplegia, unspecified affecting left nondominant side; J11.1 Influenza due to unidentified influenza virus with other respiratory manifestations; E87.6 Hypokalemia; I10 Essential (primary) hypertension; Z87.820 Personal history of traumatic brain injury; Z87.891 Personal history of nicotine dependence
CPT/HCPCS: 36415; 71010; 80048; 80053; 81001; 82803; 83605; 83735; 85025; 85610; 85730; 87040; 87086; 87804; 93005; 93010; 93971; 94799; 96365; 96367; 99291; G8978-GP; G8979-GP; J0456; J0696; J1650; J3490; J7030; J7060

== ENCOUNTER 2016-05-05 17:30 | Emergency (ER) | payer MEDICARE, OTHER ==
[2016-05-05 18:23] LABS: ABSOLUTE BASOPHILS # (AUTO) 0.1 10^3/uL (0.0-0.2); ABSOLUTE EOSINOPHILS # (AUTO) 0.3 10^3/uL (0.0-0.6); ABSOLUTE LYMPHOCYTES (AUTO) 1.7 10^3/uL (0.5-4.7); ABSOLUTE MONOCYTES (AUTO) 0.8 10^3/uL (0.1-1.4); ABSOLUTE NEUT (AUTO) 8.7 10^3/uL (1.7-8.2); BASOPHILS % (AUTO) 0.5 % (0-2); EOSINOPHILS % (AUTO) 2.3 % (0-6); HEMATOCRIT 36.7 % (37.9-51.0); HEMOGLOBIN 12.5 g/dL (13.5-17.0); HGB HCT DIFFERENCE 0.8; LYMPHOCYTES % (AUTO) 15.1 % (13-45); MEAN CORPUSCULAR HEMOGLOBIN 31.8 pg (27.0-33.4); MEAN CORPUSCULAR HGB CONC 34.2 g/dL (32.0-36.0); MEAN CORPUSCULAR VOLUME 93 fl (80-97); MONOCYTES % (AUTO) 7.2 % (3-13); RED BLOOD COUNT 3.93 10^6/uL (4.35-5.55); RED CELL DISTRIBUTION WIDTH 12.8 % (11.5-14.0); SEGMENTED NEUTROPHILS % (AUTO) 74.9 % (42-78); WHITE BLOOD COUNT 11.5 10^3/uL (4.0-10.5)
[2016-05-05 18:42] LABS: ALANINE AMINOTRANSFERASE 45 U/L (21-72); ALBUMIN 3.5 g/dL (3.5-5.0); ALKALINE PHOSPHATASE 111 U/L (38-126); ANION GAP 7 (5-19); ASPARTATE AMINO TRANSFERASE 36 U/L (17-59); BILIRUBIN,TOTAL 0.7 mg/dL (0.2-1.3); BLOOD UREA NITROGEN 21 mg/dL (7-20); CALCIUM 9.6 mg/dL (8.4-10.2); CARBON DIOXIDE 29 mmol/L (22-30); CHLORIDE 103 mmol/L (98-107); CREATINE KINASE 116 U/L (55-170); CREATININE RESULT 0.59 mg/dL (0.52-1.25); GLUCOSE 96 mg/dL (75-110); POTASSIUM 4.3 mmol/L (3.6-5.0); SODIUM 139.4 mmol/L (137-145); TOTAL PROTEIN 6.3 g/dL (6.3-8.2)
[2016-05-05 18:58] LABS: CREATINE KINASE MB 0.95 ng/mL (<4.55)
[2016-05-05 18:59] LABS: TROPONIN I < 0.012 ng/mL
--- NOTE | 2016-05-05 20:06 | EKG REPORT ---
SEVERITY:- NORMAL ECG - SINUS RHYTHM : Confirmed by: Tristen Lu 05-May-2016 20:06:10
[2016-05-05 20:08] LABS: APPEARANCE,URINE SLIGHTLY-CLOUDY; BILIRUBIN,URINE NEGATIVE (NEGATIVE); GLUCOSE, URINE NEGATIVE (NEGATIVE); KETONES,URINE NEGATIVE (NEGATIVE); LEUKOCYTE ESTERASE,URINE NEGATIVE (NEGATIVE); NITRITE,URINE NEGATIVE (NEGATIVE); PROTEIN,URINE 30 mg/dL (NEGATIVE); URINE SPECIFIC GRAVITY 1.021; UROBILINOGEN,URINE NEGATIVE mg/dL (<2.0)
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
[2016-05-06 18:34] VITALS: BP 169/75
--- NOTE | 2016-05-06 19:06 | ER Document Report ---
Doctor's Note Notes: 05/06/16 19:05 I personally performed the services described in the documentation, reviewed and edited the documentation which was dictated to my scribe in my presence, and it accurately records my words and actions. Patient seen and assessed prior to being disposition. Patient is awake alert no acute complaints no respiratory distress. Vital signs are stable EMS here to facilitate his transport in stable condition
== END 2016-05-06 19:35 | disposition other institution (70) ==
LOC: ER 17:30
DX: J18.1 Lobar pneumonia, unspecified organism (principal); R06.02 Shortness of breath; Z87.820 Personal history of traumatic brain injury; R53.1 Weakness
CPT/HCPCS: 36415; 71010; 80053; 81001; 82550; 82553; 84484; 85025; 93005; 93010; 99285

== ENCOUNTER 2017-07-29 13:21 | Inpatient (IN) | payer MEDICARE, OTHER ==
[2017-07-29] MEDS ORDERED: NORMAL SALINE 1000 ML 1,000 ML IV PRN (14:45)
[2017-07-29 14:59] LABS: ABSOLUTE BASOPHILS # (AUTO) 0.1 10^3/uL (0.0-0.2); ABSOLUTE LYMPHOCYTES (AUTO) 1.5 10^3/uL (0.5-4.7); ABSOLUTE MONOCYTES (AUTO) 0.6 10^3/uL (0.1-1.4); ABSOLUTE NEUT (AUTO) 11.5 10^3/uL (1.7-8.2); BASOPHILS % (AUTO) 0.4 % (0-2); EOSINOPHILS % (AUTO) 0.1 % (0-6); HEMATOCRIT 44.1 % (37.9-51.0); HEMOGLOBIN 15.3 g/dL (13.5-17.0); MEAN CORPUSCULAR HEMOGLOBIN 31.8 pg (27.0-33.4); MEAN CORPUSCULAR HGB CONC 34.7 g/dL (32.0-36.0); MEAN CORPUSCULAR VOLUME 92 fl (80-97); MONOCYTES % (AUTO) 4.2 % (3-13); PLATELET COUNT 257 10^3/uL (150-450); RED BLOOD COUNT 4.81 10^6/uL (4.35-5.55); RED CELL DISTRIBUTION WIDTH 12.6 % (11.5-14.0); SEGMENTED NEUTROPHILS % (AUTO) 84.3 % (42-78); TOTAL CELLS COUNTED % (AUTO) 100 %; WHITE BLOOD COUNT 13.6 10^3/uL (4.0-10.5)
[2017-07-29 15:24] LABS: ALANINE AMINOTRANSFERASE 28 U/L (21-72); ALBUMIN 4.8 g/dL (3.5-5.0); ALKALINE PHOSPHATASE 118 U/L (38-126); ANION GAP 14 (5-19); ASPARTATE AMINO TRANSFERASE 31 U/L (17-59); BILIRUBIN,DIRECT 0.3 mg/dL (0.0-0.4); BILIRUBIN,TOTAL 0.5 mg/dL (0.2-1.3); BLOOD UREA NITROGEN 32 mg/dL (7-20); CALCIUM 10.7 mg/dL (8.4-10.2); CARBON DIOXIDE 33 mmol/L (22-30); CHLORIDE 97 mmol/L (98-107); GLUCOSE 140 mg/dL (75-110); POTASSIUM 3.9 mmol/L (3.6-5.0); SODIUM 144.4 mmol/L (137-145); TOTAL PROTEIN 8.2 g/dL (6.3-8.2)
[2017-07-29] MEDS: ONDANSETRON HCL INJ/PF 4 MG/2 ML SDV IV PRN (16:16)
--- NOTE | 2017-07-29 16:22 | RADIOLOGY REPORT (SQ) ---
EXAM DESCRIPTION: CHEST 2 VIEWS COMPLETED DATE/TIME: 07/29/2017 3:16 pm REASON FOR STUDY: FATIGUE COMPARISON: 05/05/2016. EXAM PARAMETERS: NUMBER OF VIEWS: two views TECHNIQUE: Digital Frontal and Lateral radiographic views of the chest acquired. RADIATION DOSE: NA LIMITATIONS: none FINDINGS: LUNGS AND PLEURA: Stable chronic elevation of the left hemidiaphragm. No focal infiltrate s, masses or pneumothorax. No pleural effusion. MEDIASTINUM AND HILAR STRUCTURES: No masses or contour abnormalities. HEART AND VASCULAR STRUCTURES: Heart normal size. No evidence for failure. BONES: No acute findings. HARDWARE: None in the chest. OTHER: No other significant finding. IMPRESSION: NO ACUTE RADIOGRAPHIC FINDING IN THE CHEST. TECHNICAL DOCUMENTATION: JOB ID: [id number] [employer]- All Rights Reserved Reading location - IP/workstation name: [email or web address]
--- NOTE | 2017-07-29 16:23 | RADIOLOGY REPORT (SQ) ---
EXAM DESCRIPTION: KUB/ABDOMEN (SINGLE VIEW) COMPLETED DATE/TIME: 07/29/2017 3:16 pm REASON FOR STUDY: NAUSEA, VOMITING R11.2 NAUSEA WITH VOMITING, UNSPECIFIED Z51.81 ENCOUNTER FOR ERAPEUTIC DRUG LEVEL MONITORING COMPARISON: None. NUMBER OF VIEWS: One view. TECHNIQUE: Supine radiographic image of the abdomen acquired. LIMITATIONS: None. FINDINGS: BOWEL GAS PATTERN: Dilated small bowel loops. CALCIFICATIONS: No suspicious calcifications. SOFT TISSUES: No gross mass or suggestion of organomegaly. HARDWARE: None in the abdomen. BONES: No acute fracture. No worrisome bone lesions. OTHER: No other significant finding. IMPRESSION: DILATED SMALL BOWEL LOOPS CONCERNING FOR SMALL BOWEL OBSTRUCTION. TECHNICAL DOCUMENTATION: JOB ID: [id number] [employer]- All Rights Reserved Reading location - IP/workstation name: [email or web address]
[2017-07-29] MEDS ORDERED: ALBUTEROL SULFATE HFA (90 MCG/PUFF) 200 PUFF/8.5 GM MDI IH PRN (19:09)
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
[2017-07-29] MEDS ORDERED: CEFAZOLIN 1 GM/D5W RTU 1 GM/50 ML RTUPB IV SCH (21:00)
[2017-07-29] MEDS ORDERED: GLUCAGON,HUMAN RECOMB 1 MG INJ SUBCUT PRN (23:52)
[2017-07-29] MEDS ORDERED: DEXTROSE 40% GEL 15 GM TUBE PO PRN ×2 (23:52)
[2017-07-29] MEDS ORDERED: DEXTROSE 50%-WATER 25 GM/50 ML DISP.SYRIN IV PRN ×2 (23:52)
[2017-07-29] MEDS ORDERED: CEFOXITIN SODIUM 2 GM in DEXTROSE 5%-WATER 100 ML IV PRN (23:57)
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
[2017-07-30] MEDS: NORMAL SALINE 1000 ML 1,000 ML IV PRN (01:40)
[2017-07-30] MEDS: LANSOPRAZOLE 30 MG TAB.RAP.DR PO SCH (05:12)
[2017-07-30 05:22] LABS: INTERNATIONAL RATION (INR) 0.95; PARTIAL THROMBOPLASTIN TIME 25.2 SEC (23.5-35.8); PROTHROMBIN TIME 13.2 SEC (11.4-15.4)
[2017-07-30] MEDS ORDERED: ROCURONIUM BROMIDE INJ 50 MG/5 ML VIAL IV ONE (07:47)
[2017-07-30] MEDS ORDERED: GLYCOPYRROLATE INJ 0.4 MG/2 ML VIAL ONE (07:47)
[2017-07-30] MEDS ORDERED: SUCCINYLCHOLINE CHLORIDE INJ 200 MG/10 ML VIAL ONE (07:47)
[2017-07-30] MEDS ORDERED: NEOSTIGMINE METHYLSULFATE 10 MG/10 ML VIAL ONE (07:47)
--- NOTE | 2017-07-30 08:22 | PDOC PROGRESS REPORT ---
Subjective Progress Note for:: 07/30/17 Subjective:: Patient remain NPO for pending surgical intervention of right inguinal hernia with small bowel partial obstruction. No fever or chills. No chest pain or difficulty with breathing. Reason For Visit: SMALL BOWEL OBSTRUCTION WITH INGUINAL HERNIA Physical Exam Vital Signs: Temp Pulse Resp BP Pulse Ox 97.7 F 81 19 138/71 H 94 07/30/17 04:38 07/30/17 04:38 07/30/17 04:38 07/30/17 04:38 07/30/17 04:38 Intake & Output 07/29/17 07/30/17 07/31/17 06:59 06:59 06:59 Intake Total 1572 Output Total 2 Balance 1570 Weight 92.9 kg General appearance: PRESENT: no acute distress, well-developed, well-nourished Head exam: PRESENT: atraumatic, normocephalic Mouth exam: PRESENT: moist - fairly Respiratory exam: PRESENT: clear to auscultation charline Cardiovascular exam: PRESENT: RRR. ABSENT: diastolic murmur, rubs, systolic murmur Vascular exam: PRESENT: normal capillary refill. ABSENT: pallor GI/Abdominal exam: PRESENT: normal bowel sounds, soft. ABSENT: distended, guarding, mass, organolmegaly, rebound, tenderness Gentrourinary exam: PRESENT: scrotal swelling - right inguinal hernia with scrotal involvement Extremities exam: PRESENT: pedal edema Musculoskeletal exam: PRESENT: deformity - related to his TBI Neurological exam: PRESENT: alert, awake, oriented to person, oriented to place , oriented to time, oriented to situation, CN II-XII grossly intact. ABSENT: motor sensory deficit Psychiatric exam: PRESENT: appropriate affect, normal mood. ABSENT: homicidal ideation, suicidal ideation Skin exam: PRESENT: dry, warm Results Laboratory Results: 07/29/17 14:25 07/30/17 04:09 07/29/17 07/29/17 07/30/17 14:25 14:25 04:09 WBC 13.6 H RBC 4.81 Hgb 15.3 Hct 44.1 MCV 92 MCH 31.8 MCHC 34.7 RDW 12.6 Plt Count 257 Seg Neutrophils % 84.3 H Lymphocytes % 11.0 L Monocytes % 4.2 Eosinophils % 0.1 Basophils % 0.4 Absolute Neutrophils 11.5 H Absolute Lymphocytes 1.5 Absolute Monocytes 0.6 Absolute Eosinophils 0.0 Absolute Basophils 0.1 Sodium 144.4 Potassium 3.9 Chloride 97 L Carbon Dioxide 33 H Anion Gap 14 BUN 32 H Creatinine 0.66 0.67 Est GFR ( Amer) > 60 > 60 Est GFR (Non-Af Amer) > 60 > 60 Glucose 140 H Calcium 10.7 H Total Bilirubin 0.5 AST 31 ALT 28 Alkaline Phosphatase 118 Total Protein 8.2 Albumin 4.8 Impressions: Chest X-Ray 07/29/17 00:00 IMPRESSION: NO ACUTE RADIOGRAPHIC FINDING IN THE CHEST. KUB X-Ray 07/29/17 00:00 IMPRESSION: DILATED SMALL BOWEL LOOPS CONCERNING FOR SMALL BOWEL OBSTRUCTION. Assessment & Plan - Diagnosis (1) Small bowel obstruction Is this a current diagnosis for this admission?: Yes (2) Inguinal hernia of right side with obstruction Is this a current diagnosis for this admission?: Yes (3) HTN (hypertension) Qualifiers: Hypertension type: essential hypertension Qualified Code(s): I10 - Essential (primary) hypertension Is this a current diagnosis for this admission?: Yes (4) Personal history of traumatic brain injury Is this a current diagnosis for this admission?: Yes - Time Time Spent with patient: 25-34 minutes Anticipated discharge: SNF - short term rehabilitation - Inpatient Certification Based on my medical assessment, after consideration of the patient's comorbidities, presenting symptoms, or acuity I expect that the services needed warrant INPATIENT care.: Yes I certify that my determination is in accordance with my understanding of Medicare's requirements for reasonable and necessary INPATIENT services [42 CFR 412.3e].: Yes Medical Necessity: Need Close Monitoring Due to Risk of Patient Decompensation, Need For IV Fluids, Need for IV Antibiotics, Need for Surgery, Risk of Complication if Not Cared For in Hospital Post Hospital Care: D/C or Transfer Summary - Plan Summary Plan Summary: See attending physician orders.
[2017-07-30] MEDS: LISINOPRIL 10 MG TABLET PO SCH (09:53)
[2017-07-30] MEDS ORDERED: ENOXAPARIN SODIUM INJ 40 MG/0.4 ML DISP.SYRIN SUBCUT SCH (10:00)
--- NOTE | 2017-07-30 10:00 | EKG REPORT ---
SEVERITY:- BORDERLINE ECG - SINUS RHYTHM BORDERLINE T ABNORMALITIES, INFERIOR LEADS : Confirmed by: Tristen Lu 30-Jul-2017 09:59:49
[2017-07-30] MEDS: ONDANSETRON HCL INJ/PF 4 MG/2 ML SDV IV PRN (10:04)
[2017-07-30] MEDS ORDERED: PROPOFOL INJ 200 MG/20 ML VIAL IV ONE (13:12)
[2017-07-30] MEDS ORDERED: ACETAMINOPHEN 100 ML IV ONE (13:12)
[2017-07-30] MEDS ORDERED: FENTANYL CITRATE INJ/PF 250 MCG/5 ML AMPULE ONE (13:12)
[2017-07-30] MEDS ORDERED: MIDAZOLAM 2 MG/2 ML INJ ONE (13:12)
[2017-07-30] MEDS ORDERED: MORPHINE SULFATE 10 MG/ML INJ ONE (13:12)
[2017-07-30] MEDS ORDERED: DEXAMETHASONE SOD PHOSPHATE INJ 4 MG/1 ML VIAL ONE (13:13)
[2017-07-30] MEDS ORDERED: ONDANSETRON HCL INJ/PF 4 MG/2 ML SDV ONE (13:13)
[2017-07-30] MEDS ORDERED: BUPIVACAINE HCL 0.25 % INJ/PF (2.5 MG/1 ML) 30 ML VIAL ONE (13:22)
[2017-07-30] MEDS ORDERED: BUPIVACAINE INJ/PF LIPOSOME/PF 266 MG/20 ML SDV ONE (13:22)
[2017-07-30] MEDS ORDERED: MEPERIDINE HCL/PF INJ 25 MG/1 ML DISP.SYRIN IV PRN (14:27)
[2017-07-30] MEDS ORDERED: FENTANYL CITRATE INJ/PF 100 MCG/2 ML AMPUL IV PRN ×3 (14:27)
[2017-07-30] MEDS ORDERED: DIPHENHYDRAMINE HCL 50 MG/ML VIAL IV PRN (14:27)
[2017-07-30] MEDS ORDERED: PROMETHAZINE HCL INJ 25 MG/1 ML VIAL IV PRN ×2 (14:27)
[2017-07-30] MEDS ORDERED: MORPHINE SULFATE 10 MG/ML INJ IV PRN (14:27)
[2017-07-30] MEDS ORDERED: RINGERS SOLUTION,LACTATED 1,000 ML IV PRN (15:05)
[2017-07-30] MEDS ORDERED: OXYCODONE-ACETAMINOPHEN 5-325 MG TABLET PO PRN (15:06)
[2017-07-30] MEDS ORDERED: KETOROLAC TROMETHAMINE INJ/PF 30 MG/1 ML SDV IV PRN (15:06)
[2017-07-30] MEDS ORDERED: ONDANSETRON HCL INJ/PF 4 MG/2 ML SDV IV PRN (15:06)
--- NOTE | 2017-07-30 15:19 | Operative Report ---
Operative Report DATE OF SURGERY: 07/30/17 PREOPERATIVE DIAGNOSIS: Incarcerated right inguinal hernia, large, with early strangulation POSTOPERATIVE DIAGNOSIS: Same with no evidence of ischemic incarcerated tissue OPERATION: 1. Right inguinal exploration, decompression of incarcerated large right inguinal hernia. 2. Right inguinal herniorrhaphy with medium size plug and overlay mesh repair with polypropylene. 3. Drainage of right hemiscrotum SURGEON: SONJA JOSÉ ANESTHESIA: GA TISSUE REMOVED OR ALTERED: Portions of the right, indirect inguinal hernia sac, cord lipoma COMPLICATIONS: None ESTIMATED BLOOD LOSS: 100 cc INTRAOPERATIVE FINDINGS: See below PROCEDURE: Patient was seen in the preop holding area, right inguinal area more, and then taken the main operating where general anesthesia was induced. The abdominal wall, scrotum were clipped of hair, scrubbed vigorously. Multiple attempts were made to reduce the large right incarcerated inguinal hernia containing viscera stuck into the right inguinal hernia sac. A Stauffer catheter was inserted uneventfully to the somewhat retracted penis. The abdomen, scrotum and genitalia were all prepped and draped in sterile fashion. Surgical plan surgical timeout were conducted. Landmarks were identified for a planned incision over the right inguinal canal. Skin and subcutaneous tissue was divided with knife and electrocautery. Saad's fascia was divided as encountered. The findings are now significant for very large extended and distended external inguinal ring containing incarcerated tissue extending all the way down to the right. I opened up the external oblique aponeurosis from the lateral right lower quadrant along the direction of its fibers all the way to include the external inguinal ring. This immediately allowed the hernia to decompress, with the contents retracting almost immediately into the peritoneal cavity. I could not appreciate exactly what the viscera were but I presume it was primarily omentum although there may have been a loop or 2 of bowel. Once the viscera was entirely reduced from the right hemiscrotum and inguinal canal, we began dissecting out the very attenuated distended and distorted tissue. There was lipomatous tissue, cremasteric muscle fibers, a very large hernia sac, other attenuated fibrofatty tissue along the medial aspect of the inguinal canal adjacent to the pubic tubercle. I surrounded what I felt represented the cord structures including the vas deferens with a Ryan drain. I now dissected free the hernia sac which was rather well developed. It was very wide at its point of origin. I transected it approximately midway down to the hemiscrotum and permitted the distal component of the sac to retract into the recess of the right hemiscrotum. The proximal portion of the sac was interrogated carefully. The findings are significant for some fibrofatty tissue which was excised. There was a pedunculation of fatty tissue on the medial side of the sac. I could not ascertain whether it represented a portion of the cecum but it most likely did not therefore I mobilized it, and essentially amputated it at the wall of the medial side of the hernia sac into portions using Marcie clamps, and oversewing the pedicle to this fatty pedunculation with a 2-0 Vicryl suture. This effectively enabled us to visualize the entire hernia sac, and confirm it was free and suitable for amputation. I placed a 2-0 Vicryl suture in a running pursestring fashion all the way around the neck of the hernia sac, ligated it, and dictated the distal portion. The portion was sent to pathology as hernia sac. The stump was effectively allowed to retract flat with the floor the inguinal canal. Of note 1 we had the peritoneal cavity exposed, there was no foul smell, drainage, blood etc. I did not visualize the viscera as I really had no good access to. I felt that the patient likely had challenged omentum from a vascular standpoint but no ischemic tissue. We now cleaned up the floor the inguinal canal. Again there were dense fibrofatty tissue which were unclear as to their role on the medial floor the inguinal canal there were left in situ. We did not have a large Bard plug mesh repair. I took a medium plug onto the field after checking for expiration, and placed it in the recess created by the of the ligated peritoneal hernia sac. It was sewed to the floor the inguinal canal with 4 interrupted #1 PDS sutures. The overlying patch mass of polypropylene was placed on the floor the inguinal canal instilled to Poupart's ligament and conjoined tendon respectively with reconstruction of the internal ring ensuring the 2 leaves of the mesh were not too tight. We felt we created a nice repair. A large Macario drain was brought through the lateral skin flap in the distal leg tucked into the right hemiscrotum to evacuate space. The external oblique aponeurosis was closed with 2 Vicryl Saad's fascia and skin with Vicryl, then arcadio. Full-strength 20 cc Exparel deployed into subcutaneous tissue. Patient tolerated procedure well, extubated, taken recovery in stable condition.
[2017-07-30] MEDS: DOCUSATE SODIUM 100 MG CAPSULE PO SCH (16:44)
[2017-07-31 04:50] LABS: APPEARANCE,URINE SLIGHTLY-CLOUDY; BILIRUBIN,URINE NEGATIVE (NEGATIVE); COLOR,URINE YELLOW; GLUCOSE, URINE NEGATIVE (NEGATIVE); KETONES,URINE NEGATIVE (NEGATIVE); LEUKOCYTE ESTERASE,URINE SMALL (NEGATIVE); NITRITE,URINE NEGATIVE (NEGATIVE); PROTEIN,URINE 30 mg/dL (NEGATIVE); URINE SPECIFIC GRAVITY 1.034; UROBILINOGEN,URINE NEGATIVE mg/dL (<2.0)
[2017-07-31] MEDS: LANSOPRAZOLE 30 MG TAB.RAP.DR PO SCH (05:16)
[2017-07-31 07:10] LABS: HEMATOCRIT 40.3 % (37.9-51.0); HEMOGLOBIN 13.8 g/dL (13.5-17.0); MEAN CORPUSCULAR HGB CONC 34.2 g/dL (32.0-36.0); MEAN CORPUSCULAR VOLUME 94 fl (80-97); PLATELET COUNT 211 10^3/uL (150-450); RED BLOOD COUNT 4.31 10^6/uL (4.35-5.55); RED CELL DISTRIBUTION WIDTH 13.1 % (11.5-14.0); WHITE BLOOD COUNT 13.2 10^3/uL (4.0-10.5)
--- NOTE | 2017-07-31 08:13 | PDOC PROGRESS REPORT ---
Subjective Progress Note for:: 07/31/17 Subjective:: Patient denied chest pain or difficulty with breathing. No abdominal pain, nausea or vomiting. Scrotal swelling resolved. Hernia repair site ok. No fever or chills. Reason For Visit: SMALL BOWEL OBSTRUCTION WITH INGUINAL HERNIA Physical Exam Vital Signs: Temp Pulse Resp BP Pulse Ox 97.7 F 58 L 14 131/66 H 96 07/30/17 21:15 07/31/17 07:00 07/30/17 21:15 07/30/17 21:15 07/30/17 21:15 Intake & Output 07/30/17 07/31/17 08/01/17 06:59 06:59 06:59 Intake Total 1572 3100 Output Total 2 1475 Balance 1570 1625 Weight 92.9 kg 108.7 kg Physical Exam: General appearance: PRESENT: no acute distress, well-developed, well-nourished Head exam: PRESENT: atraumatic, normocephalic Mouth exam: PRESENT: moist - fairly Respiratory exam: PRESENT: clear to auscultation charline Cardiovascular exam: PRESENT: RRR. ABSENT: diastolic murmur, rubs, systolic murmur Vascular exam: ABSENT: pallor GI/Abdominal exam: PRESENT: normal bowel sounds, soft. ABSENT: distended, guarding, mass, organomegaly, rebound, tenderness Gentrourinary exam: PRESENT: scrotal swelling resolved. right inguinal hernia repair site satisfactory dressing. Extremities exam: PRESENT: pedal edema Musculoskeletal exam: PRESENT: deformity - related to his TBI Neurological exam: PRESENT: alert, awake, oriented to person, oriented to place , oriented to time, oriented to situation, CN II-XII grossly intact. ABSENT: motor sensory deficit Psychiatric exam: PRESENT: appropriate affect, normal mood. ABSENT: homicidal ideation, suicidal ideation Skin exam: PRESENT: dry, warm Results Laboratory Results: 07/31/17 06:51 07/30/17 04:09 07/31/17 07/31/17 04:18 06:51 WBC 13.2 H RBC 4.31 L Hgb 13.8 Hct 40.3 MCV 94 MCH 32.0 MCHC 34.2 RDW 13.1 Plt Count 211 Urine Color YELLOW Urine Appearance SLIGHTLY-CLOUDY Urine pH 5.0 Ur Specific [place] 1.034 Urine Protein 30 H Urine Glucose (UA) NEGATIVE Urine Ketones NEGATIVE Urine Blood LARGE H Urine Nitrite NEGATIVE Ur Leukocyte Esterase SMALL H Urine WBC (Auto) 76 Urine RBC (Auto) >182 Impressions: Chest X-Ray 07/29/17 00:00 IMPRESSION: NO ACUTE RADIOGRAPHIC FINDING IN THE CHEST. KUB X-Ray 07/29/17 00:00 IMPRESSION: DILATED SMALL BOWEL LOOPS CONCERNING FOR SMALL BOWEL OBSTRUCTION. Assessment & Plan - Diagnosis (1) Small bowel obstruction Is this a current diagnosis for this admission?: Yes (2) Inguinal hernia of right side with obstruction Is this a current diagnosis for this admission?: Yes (3) HTN (hypertension) Qualifiers: Hypertension type: essential hypertension Qualified Code(s): I10 - Essential (primary) hypertension Is this a current diagnosis for this admission?: Yes (4) Personal history of traumatic brain injury Is this a current diagnosis for this admission?: Yes - Time Time Spent with patient: 25-34 minutes Medications reviewed and adjusted accordingly: Yes Anticipated discharge: SNF Within: Other - Inpatient Certification Based on my medical assessment, after consideration of the patient's comorbidities, presenting symptoms, or acuity I expect that the services needed warrant INPATIENT care.: Yes I certify that my determination is in accordance with my understanding of Medicare's requirements for reasonable and necessary INPATIENT services [42 CFR 412.3e].: Yes Medical Necessity: Need Close Monitoring Due to Risk of Patient Decompensation, Need For IV Fluids, Need For Continuous Telemetry Monitoring, Need for IV Antibiotics, Risk of Complication if Not Cared For in Hospital Post Hospital Care: D/C or Transfer Summary - Plan Summary Plan Summary: Start feeding with clear liquid diet and advance as tolerated. PT evaluation with consideration to transfer to SNF for short term rehabilitation. Obtain urine culture for abnormal urinalysis findings and associated leukocytosis which may reflect his recent small bowel obstruction from incarcerated right inguinal hernia. Repeat BMP and CBC with differential in AM
--- NOTE | 2017-07-31 08:27 | PDOC PROGRESS REPORT ---
Subjective Progress Note for:: 07/31/17 Subjective:: comfortable Reason For Visit: SMALL BOWEL OBSTRUCTION WITH INGUINAL HERNIA Physical Exam Vital Signs: Temp Pulse Resp BP Pulse Ox 97.7 F 58 L 14 131/66 H 96 07/30/17 21:15 07/31/17 07:00 07/30/17 21:15 07/30/17 21:15 07/30/17 21:15 Intake & Output 07/30/17 07/31/17 08/01/17 06:59 06:59 06:59 Intake Total 1572 3100 Output Total 2 1475 Balance 1570 1625 Weight 92.9 kg 108.7 kg General appearance: PRESENT: no acute distress, cooperative Respiratory exam: PRESENT: clear to auscultation charline Cardiovascular exam: PRESENT: RRR GI/Abdominal exam: PRESENT: soft, other - Right groin: wound C/D/I, drain with serosanguinous fluid; Right scrotum slightly edematous; Results Laboratory Results: 07/31/17 06:51 07/30/17 04:09 07/31/17 07/31/17 04:18 06:51 WBC 13.2 H RBC 4.31 L Hgb 13.8 Hct 40.3 MCV 94 MCH 32.0 MCHC 34.2 RDW 13.1 Plt Count 211 Urine Color YELLOW Urine Appearance SLIGHTLY-CLOUDY Urine pH 5.0 Ur Specific [place] 1.034 Urine Protein 30 H Urine Glucose (UA) NEGATIVE Urine Ketones NEGATIVE Urine Blood LARGE H Urine Nitrite NEGATIVE Ur Leukocyte Esterase SMALL H Urine WBC (Auto) 76 Urine RBC (Auto) >182 Impressions: Chest X-Ray 07/29/17 00:00 IMPRESSION: NO ACUTE RADIOGRAPHIC FINDING IN THE CHEST. KUB X-Ray 07/29/17 00:00 IMPRESSION: DILATED SMALL BOWEL LOOPS CONCERNING FOR SMALL BOWEL OBSTRUCTION. Assessment & Plan - Diagnosis (1) Inguinal hernia of right side with obstruction Is this a current diagnosis for this admission?: Yes - Plan Summary Plan Summary: A/ POD#1 after open RIH repair with mesh VSS, AF good UO MICHAEL with serosanguinous fluid P/ Advance diet (clears then regular) OOB & up in chair Ambulation Stauffer out tonight at midnight patient to remain in hospital as he lives alone and he is [employer]
[2017-07-31] MEDS: DOCUSATE SODIUM 100 MG CAPSULE PO SCH ×2 (10:20→17:24)
[2017-07-31] MEDS: LISINOPRIL 10 MG TABLET PO SCH (10:20)
[2017-07-31] MEDS: KETOROLAC TROMETHAMINE INJ/PF 30 MG/1 ML SDV IV PRN ×2 (11:37→17:25)
[2017-07-31] MEDS: NORMAL SALINE 1000 ML 1,000 ML IV PRN (11:38)
[2017-08-01] MEDS ORDERED: KETOROLAC TROMETHAMINE INJ/PF 30 MG/1 ML SDV IV PRN (02:00)
[2017-08-01 05:05] LABS: ANION GAP 12 (5-19); BLOOD UREA NITROGEN 37 mg/dL (7-20); CALCIUM 8.5 mg/dL (8.4-10.2); CARBON DIOXIDE 30 mmol/L (22-30); CHLORIDE 104 mmol/L (98-107); GLUCOSE 89 mg/dL (75-110); POTASSIUM 3.6 mmol/L (3.6-5.0); SODIUM 145.6 mmol/L (137-145)
[2017-08-01] MEDS: LANSOPRAZOLE 30 MG TAB.RAP.DR PO SCH (06:35)
[2017-08-01] MEDS: NORMAL SALINE 1000 ML 1,000 ML IV PRN (06:35)
[2017-08-01] MEDS: LISINOPRIL 10 MG TABLET PO SCH (09:51)
[2017-08-01] MEDS: DOCUSATE SODIUM 100 MG CAPSULE PO SCH ×2 (09:51→17:07)
--- NOTE | 2017-08-01 10:55 | PDOC PROGRESS REPORT ---
Subjective Progress Note for:: 08/01/17 Subjective:: Patient is status post surgery for the small bowel obstructions Patient is currently doing well p.o. intake is fair Denied any chest pain denied any shortness of the breath denied any abdominal pain Reason For Visit: SMALL BOWEL OBSTRUCTION WITH INGUINAL HERNIA Physical Exam Vital Signs: Temp Pulse Resp BP Pulse Ox 97.4 F 70 18 137/72 H 100 08/01/17 07:58 08/01/17 07:58 08/01/17 07:58 08/01/17 07:58 08/01/17 07:58 Intake & Output 07/31/17 08/01/17 08/02/17 06:59 06:59 06:59 Intake Total 3100 3650 Output Total 1475 475 15 Balance 1625 3175 -15 Weight 108.7 kg 113.5 kg General appearance: PRESENT: no acute distress, well-developed, well-nourished Head exam: PRESENT: atraumatic, normocephalic Eye exam: PRESENT: conjunctiva pink, EOMI, PERRLA. ABSENT: scleral icterus Ear exam: PRESENT: normal external ear exam Mouth exam: PRESENT: moist, tongue midline Neck exam: PRESENT: full ROM. ABSENT: carotid bruit, JVD, lymphadenopathy, thyromegaly Respiratory exam: PRESENT: clear to auscultation charline Cardiovascular exam: PRESENT: RRR. ABSENT: diastolic murmur, rubs, systolic murmur Pulses: PRESENT: normal dorsalis pedis pul, +2 pedal pulses bilateral Vascular exam: PRESENT: normal capillary refill GI/Abdominal exam: PRESENT: normal bowel sounds, soft. ABSENT: distended, guarding, mass, organolmegaly, rebound, tenderness Additonal comments: Surgical site is intactDressing Rectal exam: PRESENT: deferred Neurological exam: PRESENT: alert, awake, oriented to person, oriented to place. ABSENT: motor sensory deficit Psychiatric exam: PRESENT: appropriate affect, normal mood. ABSENT: homicidal ideation, suicidal ideation Skin exam: PRESENT: dry, intact, warm. ABSENT: cyanosis, rash Results Laboratory Results: 07/31/17 06:51 08/01/17 04:16 08/01/17 04:16 Sodium 145.6 H Potassium 3.6 Chloride 104 Carbon Dioxide 30 Anion Gap 12 BUN 37 H Creatinine 0.66 Est GFR ( Amer) > 60 Est GFR (Non-Af Amer) > 60 Glucose 89 Calcium 8.5 Impressions: Chest X-Ray 07/29/17 00:00 IMPRESSION: NO ACUTE RADIOGRAPHIC FINDING IN THE CHEST. KUB X-Ray 07/29/17 00:00 IMPRESSION: DILATED SMALL BOWEL LOOPS CONCERNING FOR SMALL BOWEL OBSTRUCTION. Assessment & Plan - Time Time Spent with patient: 15-24 minutes Medications reviewed and adjusted accordingly: Yes Anticipated discharge: Other Within: Other - Inpatient Certification Medical Necessity: Need Close Monitoring Due to Risk of Patient Decompensation - Plan Summary Plan Summary: Continues to current medications
--- NOTE | 2017-08-01 10:56 | PDOC PROGRESS REPORT ---
Subjective Progress Note for:: 08/01/17 Subjective:: no c/o Reason For Visit: SMALL BOWEL OBSTRUCTION WITH INGUINAL HERNIA Physical Exam Vital Signs: Temp Pulse Resp BP Pulse Ox 97.4 F 70 18 137/72 H 100 08/01/17 07:58 08/01/17 07:58 08/01/17 07:58 08/01/17 07:58 08/01/17 07:58 Intake & Output 07/31/17 08/01/17 08/02/17 06:59 06:59 06:59 Intake Total 3100 3650 Output Total 1475 475 15 Balance 1625 3175 -15 Weight 108.7 kg 113.5 kg General appearance: PRESENT: no acute distress, cooperative Respiratory exam: PRESENT: clear to auscultation charline Cardiovascular exam: PRESENT: RRR GI/Abdominal exam: PRESENT: soft Gentrourinary exam: PRESENT: other - right groin: wound C/D/I, drain in place with serous fluid, scrotum swollen soft, not tender Results Laboratory Results: 07/31/17 06:51 08/01/17 04:16 08/01/17 04:16 Sodium 145.6 H Potassium 3.6 Chloride 104 Carbon Dioxide 30 Anion Gap 12 BUN 37 H Creatinine 0.66 Est GFR ( Amer) > 60 Est GFR (Non-Af Amer) > 60 Glucose 89 Calcium 8.5 Impressions: Chest X-Ray 07/29/17 00:00 IMPRESSION: NO ACUTE RADIOGRAPHIC FINDING IN THE CHEST. KUB X-Ray 07/29/17 00:00 IMPRESSION: DILATED SMALL BOWEL LOOPS CONCERNING FOR SMALL BOWEL OBSTRUCTION. Assessment & Plan - Diagnosis (1) Inguinal hernia of right side with obstruction Is this a current diagnosis for this admission?: Yes - Plan Summary Plan Summary: A/ POD #2 after RIH repair with mesh MICHAEL drain with decreased output Surgical site well healing Scrotal edema improved P/ Patient can be discharged to home anytime by my viewpoint Regular diet Activites as tolerated F/U with Dr. Beaulieu next week MICHAEL care teaching; record output and bring record to clinic Sponge bath only Tylenol only for pain
[2017-08-01] MEDS ORDERED: ACETAMINOPHEN 325 MG TABLET PO PRN (10:59)
[2017-08-01] MEDS ORDERED: NA PHOS,M-B/NA PHOS,DI-BA (ADULT) 133 ML ENEMA PR ONE (12:00)
[2017-08-01] MEDS ORDERED: ENOXAPARIN SODIUM INJ 40 MG/0.4 ML DISP.SYRIN SUBCUT ONE (12:30)
[2017-08-02 05:14] LABS: ABSOLUTE BASOPHILS # (AUTO) 0.1 10^3/uL (0.0-0.2); ABSOLUTE EOSINOPHILS # (AUTO) 0.5 10^3/uL (0.0-0.6); ABSOLUTE LYMPHOCYTES (AUTO) 2.4 10^3/uL (0.5-4.7); ABSOLUTE MONOCYTES (AUTO) 0.7 10^3/uL (0.1-1.4); ABSOLUTE NEUT (AUTO) 4.8 10^3/uL (1.7-8.2); BASOPHILS % (AUTO) 1.2 % (0-2); EOSINOPHILS % (AUTO) 5.8 % (0-6); HEMATOCRIT 33.8 % (37.9-51.0); HEMOGLOBIN 11.8 g/dL (13.5-17.0); LYMPHOCYTES % (AUTO) 28.6 % (13-45); MEAN CORPUSCULAR HEMOGLOBIN 32.5 pg (27.0-33.4); MEAN CORPUSCULAR HGB CONC 34.8 g/dL (32.0-36.0); MEAN CORPUSCULAR VOLUME 94 fl (80-97); MONOCYTES % (AUTO) 7.7 % (3-13); PLATELET COUNT 207 10^3/uL (150-450); RED BLOOD COUNT 3.61 10^6/uL (4.35-5.55); SEGMENTED NEUTROPHILS % (AUTO) 56.7 % (42-78); TOTAL CELLS COUNTED % (AUTO) 100 %; WHITE BLOOD COUNT 8.5 10^3/uL (4.0-10.5)
[2017-08-02] MEDS: LANSOPRAZOLE 30 MG TAB.RAP.DR PO SCH (05:30)
[2017-08-02] MEDS: ENOXAPARIN SODIUM INJ 40 MG/0.4 ML DISP.SYRIN SUBCUT SCH (09:20)
[2017-08-02] MEDS: LISINOPRIL 10 MG TABLET PO SCH (09:21)
[2017-08-02] MEDS: DOCUSATE SODIUM 100 MG CAPSULE PO SCH ×2 (09:21→17:09)
--- NOTE | 2017-08-02 10:54 | PDOC PROGRESS REPORT ---
Subjective Progress Note for:: 08/02/17 Subjective:: comfortable Reason For Visit: SMALL BOWEL OBSTRUCTION WITH INGUINAL HERNIA Physical Exam Vital Signs: Temp Pulse Resp BP Pulse Ox 97.5 F 75 18 154/79 H 95 08/02/17 08:22 08/02/17 08:22 08/02/17 08:22 08/02/17 08:22 08/02/17 08:22 Intake & Output 08/01/17 08/02/17 08/03/17 06:59 06:59 06:59 Intake Total 3650 1034 Output Total 475 640 10 Balance 3175 394 -10 Weight 113.5 kg 115.7 kg General appearance: PRESENT: no acute distress GI/Abdominal exam: PRESENT: soft, other - right groin: wound C/D/I, soft, scrotum soft, distended, no cellulitits, ne tenderness on palpation Results Laboratory Results: 08/02/17 04:48 08/01/17 04:16 08/02/17 04:48 WBC 8.5 RBC 3.61 L Hgb 11.8 L Hct 33.8 L MCV 94 MCH 32.5 MCHC 34.8 RDW 13.0 Plt Count 207 Seg Neutrophils % 56.7 Lymphocytes % 28.6 Monocytes % 7.7 Eosinophils % 5.8 Basophils % 1.2 Absolute Neutrophils 4.8 Absolute Lymphocytes 2.4 Absolute Monocytes 0.7 Absolute Eosinophils 0.5 Absolute Basophils 0.1 07/31/17 04:18 Clean Catch Midstream Urine Culture - Final NO GROWTH 2 DAYS Impressions: Chest X-Ray 07/29/17 00:00 IMPRESSION: NO ACUTE RADIOGRAPHIC FINDING IN THE CHEST. KUB X-Ray 07/29/17 00:00 IMPRESSION: DILATED SMALL BOWEL LOOPS CONCERNING FOR SMALL BOWEL OBSTRUCTION. Assessment & Plan - Diagnosis (1) Inguinal hernia of right side with obstruction Is this a current diagnosis for this admission?: Yes - Plan Summary Plan Summary: A/ POD#3 after RIH repair with mesh Bowel function returned Diet tolerated PE of surgical site unremarkable MICHAEL output 40 mL past 24 hrs P/ No acute General Surgery issues Patient to go to short term rehab tomorrow Please, see my not from yesterday for discharge instructions. Keep MICHAEL drain for now.
--- NOTE | 2017-08-02 10:56 | PDOC PROGRESS REPORT ---
Subjective Progress Note for:: 08/02/17 Subjective:: Patient is status post surgery for the small bowel obstructions Patient is currently doing well p.o. intake is fair Denied any chest pain denied any shortness of the breath denied any abdominal pain Reason For Visit: SMALL BOWEL OBSTRUCTION WITH INGUINAL HERNIA Physical Exam Vital Signs: Temp Pulse Resp BP Pulse Ox 97.5 F 75 18 154/79 H 95 08/02/17 08:22 08/02/17 08:22 08/02/17 08:22 08/02/17 08:22 08/02/17 08:22 Intake & Output 08/01/17 08/02/17 08/03/17 06:59 06:59 06:59 Intake Total 3650 1034 Output Total 475 640 10 Balance 3175 394 -10 Weight 113.5 kg 115.7 kg General appearance: PRESENT: no acute distress, well-developed, well-nourished Head exam: PRESENT: atraumatic, normocephalic Eye exam: PRESENT: conjunctiva pink, EOMI, PERRLA. ABSENT: scleral icterus Ear exam: PRESENT: normal external ear exam Mouth exam: PRESENT: moist, tongue midline Neck exam: PRESENT: full ROM. ABSENT: carotid bruit, JVD, lymphadenopathy, thyromegaly Respiratory exam: PRESENT: clear to auscultation charline Cardiovascular exam: PRESENT: RRR. ABSENT: diastolic murmur, rubs, systolic murmur Pulses: PRESENT: normal dorsalis pedis pul, +2 pedal pulses bilateral Vascular exam: PRESENT: normal capillary refill GI/Abdominal exam: PRESENT: normal bowel sounds, soft. ABSENT: distended, guarding, mass, organolmegaly, rebound, tenderness Rectal exam: PRESENT: deferred Extremities exam: ABSENT: pedal edema Neurological exam: PRESENT: alert, awake, oriented to person, oriented to place. ABSENT: motor sensory deficit Psychiatric exam: PRESENT: appropriate affect, normal mood. ABSENT: homicidal ideation, suicidal ideation Skin exam: PRESENT: dry, intact, warm. ABSENT: cyanosis, rash Results Laboratory Results: 08/02/17 04:48 08/01/17 04:16 08/02/17 04:48 WBC 8.5 RBC 3.61 L Hgb 11.8 L Hct 33.8 L MCV 94 MCH 32.5 MCHC 34.8 RDW 13.0 Plt Count 207 Seg Neutrophils % 56.7 Lymphocytes % 28.6 Monocytes % 7.7 Eosinophils % 5.8 Basophils % 1.2 Absolute Neutrophils 4.8 Absolute Lymphocytes 2.4 Absolute Monocytes 0.7 Absolute Eosinophils 0.5 Absolute Basophils 0.1 07/31/17 04:18 Clean Catch Midstream Urine Culture - Final NO GROWTH 2 DAYS Impressions: Chest X-Ray 07/29/17 00:00 IMPRESSION: NO ACUTE RADIOGRAPHIC FINDING IN THE CHEST. KUB X-Ray 07/29/17 00:00 IMPRESSION: DILATED SMALL BOWEL LOOPS CONCERNING FOR SMALL BOWEL OBSTRUCTION. Assessment & Plan - Diagnosis (1) Small bowel obstruction Is this a current diagnosis for this admission?: Yes (2) HTN (hypertension) Qualifiers: Hypertension type: essential hypertension Qualified Code(s): I10 - Essential (primary) hypertension Is this a current diagnosis for this admission?: Yes (3) Personal history of traumatic brain injury Is this a current diagnosis for this admission?: Yes - Time Time Spent with patient: 15-24 minutes Medications reviewed and adjusted accordingly: Yes Anticipated discharge: Acute Rehab Within: Other - Inpatient Certification Medical Necessity: Need Close Monitoring Due to Risk of Patient Decompensation 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
[2017-08-03 05:15] LABS: HEMATOCRIT 35.1 % (37.9-51.0); HEMOGLOBIN 12.1 g/dL (13.5-17.0); MEAN CORPUSCULAR HEMOGLOBIN 32.4 pg (27.0-33.4); MEAN CORPUSCULAR HGB CONC 34.5 g/dL (32.0-36.0); MEAN CORPUSCULAR VOLUME 94 fl (80-97); PLATELET COUNT 226 10^3/uL (150-450); RED BLOOD COUNT 3.74 10^6/uL (4.35-5.55); RED CELL DISTRIBUTION WIDTH 12.8 % (11.5-14.0); WHITE BLOOD COUNT 8.4 10^3/uL (4.0-10.5)
[2017-08-03] MEDS: LANSOPRAZOLE 30 MG TAB.RAP.DR PO SCH (06:58)
[2017-08-03] MEDS: DOCUSATE SODIUM 100 MG CAPSULE PO SCH ×2 (09:14→17:18)
[2017-08-03] MEDS: LISINOPRIL 10 MG TABLET PO SCH (09:15)
[2017-08-03] MEDS: ENOXAPARIN SODIUM INJ 40 MG/0.4 ML DISP.SYRIN SUBCUT SCH (09:15)
--- NOTE | 2017-08-03 10:27 | PDOC PROGRESS REPORT ---
Subjective Progress Note for:: 08/03/17 Reason For Visit: SMALL BOWEL OBSTRUCTION WITH INGUINAL HERNIA Patient has no complaints, getting about with the support devices; awaiting transfer to rehab Physical Exam Vital Signs: Temp Pulse Resp BP Pulse Ox 97.8 F 63 18 157/70 H 97 08/03/17 08:13 08/03/17 08:13 08/03/17 08:13 08/03/17 08:13 08/03/17 08:13 Intake & Output 08/02/17 08/03/17 08/04/17 06:59 06:59 06:59 Intake Total 1034 992 Output Total 640 610 Balance 394 382 Weight 115.7 kg 115.7 kg General appearance: PRESENT: no acute distress Gentrourinary exam: PRESENT: other - Operative site looks good. Glue still in place. Right testicle unremarkable Results Laboratory Results: 08/03/17 04:19 08/01/17 04:16 08/03/17 04:19 WBC 8.4 RBC 3.74 L Hgb 12.1 L Hct 35.1 L MCV 94 MCH 32.4 MCHC 34.5 RDW 12.8 Plt Count 226 07/31/17 04:18 Clean Catch Midstream Urine Culture - Final NO GROWTH 2 DAYS Impressions: Chest X-Ray 07/29/17 00:00 IMPRESSION: NO ACUTE RADIOGRAPHIC FINDING IN THE CHEST. KUB X-Ray 07/29/17 00:00 IMPRESSION: DILATED SMALL BOWEL LOOPS CONCERNING FOR SMALL BOWEL OBSTRUCTION. Assessment & Plan - Diagnosis (1) Inguinal hernia of right side with obstruction Is this a current diagnosis for this admission?: Yes Plan: Postoperative day 4, doing well, no complications. Recommendations: 1. May discharge to long term facility 2. Return to clinic [facility] to follow-up with Ainsley VERGARA, in 1- 2 weeks. 3. Shower, allow glue to fall off
--- NOTE | 2017-08-03 18:26 | PDOC PROGRESS REPORT ---
Subjective Progress Note for:: 08/03/17 Subjective:: Patient denied chest pain or difficulty with breathing. No abdominal pain, nausea or vomiting. Tolerating oral feeding. Scrotal swelling resolved. Hernia repair site remain intact and satisfactory. No fever or chills. Reason For Visit: SMALL BOWEL OBSTRUCTION WITH INGUINAL HERNIA Physical Exam Vital Signs: Temp Pulse Resp BP Pulse Ox 98.7 F 71 18 160/74 H 99 08/03/17 16:00 08/03/17 16:00 08/03/17 16:00 08/03/17 16:00 08/03/17 16:00 Intake & Output 08/02/17 08/03/17 08/04/17 06:59 06:59 06:59 Intake Total 1034 992 10 Output Total 640 610 20 Balance 394 382 -10 Weight 115.7 kg 115.7 kg Physical Exam: General appearance: PRESENT: no acute distress, well-developed, well-nourished Head exam: PRESENT: atraumatic, normocephalic Mouth exam: PRESENT: moist - fairly Respiratory exam: PRESENT: clear to auscultation charline Cardiovascular exam: PRESENT: RRR. ABSENT: diastolic murmur, rubs, systolic murmur Vascular exam: ABSENT: pallor GI/Abdominal exam: PRESENT: normal bowel sounds, soft. ABSENT: distended, guarding, mass, organomegaly, rebound, tenderness Gentrourinary exam: PRESENT: scrotal swelling resolved. right inguinal hernia repair site satisfactory dressing. Extremities exam: PRESENT: pedal edema Musculoskeletal exam: PRESENT: deformity - related to his TBI Neurological exam: PRESENT: alert, awake, oriented to person, oriented to place , oriented to time, oriented to situation, CN II-XII grossly intact. ABSENT: motor sensory deficit Psychiatric exam: PRESENT: appropriate affect, normal mood. ABSENT: homicidal ideation, suicidal ideation Skin exam: PRESENT: dry, warm Results Laboratory Results: 08/03/17 04:19 08/01/17 04:16 08/03/17 04:19 WBC 8.4 RBC 3.74 L Hgb 12.1 L Hct 35.1 L MCV 94 MCH 32.4 MCHC 34.5 RDW 12.8 Plt Count 226 Impressions: Chest X-Ray 07/29/17 00:00 IMPRESSION: NO ACUTE RADIOGRAPHIC FINDING IN THE CHEST. KUB X-Ray 07/29/17 00:00 IMPRESSION: DILATED SMALL BOWEL LOOPS CONCERNING FOR SMALL BOWEL OBSTRUCTION. Assessment & Plan - Diagnosis (1) Small bowel obstruction Is this a current diagnosis for this admission?: Yes (2) Inguinal hernia of right side with obstruction Is this a current diagnosis for this admission?: Yes (3) HTN (hypertension) Qualifiers: Hypertension type: essential hypertension Qualified Code(s): I10 - Essential (primary) hypertension Is this a current diagnosis for this admission?: Yes (4) Personal history of traumatic brain injury Is this a current diagnosis for this admission?: Yes - Time Time Spent with patient: 25-34 minutes Medications reviewed and adjusted accordingly: Yes Anticipated discharge: SNF - for short term rehabilitation and surgical wound management Within: when bed available - Inpatient Certification Based on my medical assessment, after consideration of the patient's comorbidities, presenting symptoms, or acuity I expect that the services needed warrant INPATIENT care.: Yes I certify that my determination is in accordance with my understanding of Medicare's requirements for reasonable and necessary INPATIENT services [42 CFR 412.3e].: Yes Medical Necessity: Need Close Monitoring Due to Risk of Patient Decompensation, Need For Continuous Telemetry Monitoring, Risk of Complication if Not Cared For in Hospital Post Hospital Care: D/C or Transfer Summary - Plan Summary Plan Summary: Continue current medication management. Follow up with discharge team regarding transition to SNF for short term rehabilitation and surgical wound management.
[2017-08-03] MEDS ORDERED: LISINOPRIL 10 MG TABLET PO ONE (19:30)
[2017-08-04] MEDS: LANSOPRAZOLE 30 MG TAB.RAP.DR PO SCH (05:38)
[2017-08-04 05:56] LABS: ABSOLUTE BASOPHILS # (AUTO) 0.1 10^3/uL (0.0-0.2); ABSOLUTE EOSINOPHILS # (AUTO) 0.4 10^3/uL (0.0-0.6); ABSOLUTE LYMPHOCYTES (AUTO) 2.6 10^3/uL (0.5-4.7); ABSOLUTE MONOCYTES (AUTO) 0.6 10^3/uL (0.1-1.4); ABSOLUTE NEUT (AUTO) 5.5 10^3/uL (1.7-8.2); BASOPHILS % (AUTO) 0.9 % (0-2); EOSINOPHILS % (AUTO) 4.6 % (0-6); HEMATOCRIT 35.1 % (37.9-51.0); HEMOGLOBIN 12.2 g/dL (13.5-17.0); LYMPHOCYTES % (AUTO) 27.9 % (13-45); MEAN CORPUSCULAR HEMOGLOBIN 32.3 pg (27.0-33.4); MEAN CORPUSCULAR HGB CONC 34.7 g/dL (32.0-36.0); MEAN CORPUSCULAR VOLUME 93 fl (80-97); MONOCYTES % (AUTO) 6.6 % (3-13); PLATELET COUNT 235 10^3/uL (150-450); RED BLOOD COUNT 3.77 10^6/uL (4.35-5.55); RED CELL DISTRIBUTION WIDTH 12.5 % (11.5-14.0); TOTAL CELLS COUNTED % (AUTO) 100 %; WHITE BLOOD COUNT 9.2 10^3/uL (4.0-10.5)
--- NOTE | 2017-08-04 07:46 | PDOC TRANSFER SUMMARY ---
General - Admit/Disc Date/PCP Admission Date/Primary Care Provider: 07/29/17 13:21 [facility] Discharge Date: 08/04/17 - Discharge Diagnosis (1) Small bowel obstruction Is this a current diagnosis for this admission?: Yes (2) Inguinal hernia of right side with obstruction Is this a current diagnosis for this admission?: Yes (3) HTN (hypertension) Is this a current diagnosis for this admission?: Yes (4) Personal history of traumatic brain injury Is this a current diagnosis for this admission?: Yes - Additional Information Resuscitation Status: Full Code Home Medications: Albuterol Sulfate [Proair HFA Inhalation Aerosol 8.5 gm MDI] 2 puff PO Q4HP PRN 07/29/17 Aspirin [Ecotrin 81 mg EC Tablet] 81 mg PO DAILY 07/29/17 Hydrochlorothiazide [Hydrodiuril 25 mg Tablet] 25 mg PO DAILY 07/29/17 Pnv,Calcium 72/Iron,Carb/Folic [ Plus Iron Tablet] 1 tab PO DAILY Docusate Sodium [Colace 100 mg Capsule] 100 mg PO BID capsule 08/04/17 Lisinopril [Prinivil 10 mg Tablet] 20 mg PO DAILY #0 tablet 08/04/17 History of Present Illness Admission Date/PCP: 07/29/17 13:21 [facility] Patient complains of: Recurrent nausea and vomiting History of Present Illness: EARL HAWLEY is a 67 year old male known to my practice, presented to the office earlier today with 2 days history of recurrent nausea and vomiting. He reported associated postural lightheadedness, weakness, fatigue, excess gas and dry heaves. He denied any fever or chills. No significant abdominal pain. His appetite and oral intake have been suppressed due to his nausea and vomiting.No urinary frequency, hematuria, or flank pain. No headache or sinus problem. He denied any chest pain or difficulty with breathing. Hospital Course Hospital Course: Patient presented with nausea and vomiting and generally not feeling well. His evaluation did revealed right inguinal hernia with scrotal involvement and partial small bowel obstruction. He was see by the surgicalist group and eventually taken to surgery on 07/30/17. Post operatively he has shown progressive improvement. He is tolerating oral feeding without nausea, vomiting or abdominal pain. No fever or chills. His blood culture was reported no growth x 5 days. He has been participating in physical therapy. He is agreeable to transition to SNF for short term rehabilitation and wound management. Patient do live along in modified handicapped environment with social support. He will benefit from home health nurse visit upon discharge from the SNF to ensure reintegration into his preadmission status. He will follow up with the surgical team as instructed upon discharge. SNF staff will call my office for follow up before discharge from the facility upon completion of his rehabilitation. Physical Exam Vital Signs: Temp Pulse Resp BP Pulse Ox 97.9 F 65 21 H 160/75 H 97 08/03/17 23:12 08/04/17 02:00 08/03/17 23:12 08/03/17 23:12 08/03/17 23:12 Intake & Output 08/03/17 08/04/17 08/05/17 06:59 06:59 06:59 Intake Total 992 1517 Output Total 610 620 Balance 382 897 Weight 115.7 kg 114.3 kg General appearance: PRESENT: no acute distress, well-developed, well-nourished Head exam: PRESENT: atraumatic, normocephalic Mouth exam: PRESENT: moist - fairly Respiratory exam: PRESENT: clear to auscultation charline Cardiovascular exam: PRESENT: RRR. ABSENT: diastolic murmur, rubs, systolic murmur Vascular exam: PRESENT: normal capillary refill. ABSENT: pallor GI/Abdominal exam: PRESENT: normal bowel sounds, soft. ABSENT: distended, guarding, mass, organomegaly, rebound, tenderness Gentrourinary exam: PRESENT: resolved scrotal swelling, post right inguinal hernia repair Extremities exam: PRESENT: pedal edema Musculoskeletal exam: PRESENT: deformity - related to his TBI Neurological exam: PRESENT: alert, awake, oriented to person, oriented to place , oriented to time, oriented to situation, CN II-XII grossly intact. ABSENT: motor sensory deficit Psychiatric exam: PRESENT: appropriate affect, normal mood. ABSENT: homicidal ideation, suicidal ideation Skin exam: PRESENT: dry, warm, right inguinia hernia repair surgical wound site satisfactory dressing. Results Laboratory Results: 08/04/17 05:08 08/01/17 04:16 08/04/17 05:08 WBC 9.2 RBC 3.77 L Hgb 12.2 L Hct 35.1 L MCV 93 MCH 32.3 MCHC 34.7 RDW 12.5 Plt Count 235 Seg Neutrophils % 60.0 Lymphocytes % 27.9 Monocytes % 6.6 Eosinophils % 4.6 Basophils % 0.9 Absolute Neutrophils 5.5 Absolute Lymphocytes 2.6 Absolute Monocytes 0.6 Absolute Eosinophils 0.4 Absolute Basophils 0.1 07/29/17 21:06 Blood Blood Culture - Final NO GROWTH IN 5 DAYS 07/29/17 19:33 Blood Blood Culture - Final NO GROWTH IN 5 DAYS Impressions: Chest X-Ray 07/29/17 00:00 IMPRESSION: NO ACUTE RADIOGRAPHIC FINDING IN THE CHEST. KUB X-Ray 07/29/17 00:00 IMPRESSION: DILATED SMALL BOWEL LOOPS CONCERNING FOR SMALL BOWEL OBSTRUCTION. Transfer Plan - Disposition Transfer Plan: Transition to [facility] for short term rehabilitation. Follow up with surgical team as instructed upon discharge. Follow up with me in the office as scheduled before discharge from SNF. Recommend home health agency nurse visit upon discharge from SNF. - Time Spent with Patient Time spent with patient: Greater than 30 Minutes Qualifiers - * PATIENT BEING DISCHARGED WITH ANY OF THE FOLLOWING DIAGNOSIS: No Plan Discharge Plan: Transition to [facility] for short term rehabilitation. Follow up with surgical team as instructed upon discharge. Follow up with me in the office as scheduled before discharge from SNF. Recommend home health agency nurse visit upon discharge from SNF. Time Spent: Greater than 30 Minutes
[2017-08-04] MEDS: ENOXAPARIN SODIUM INJ 40 MG/0.4 ML DISP.SYRIN SUBCUT SCH (09:39)
[2017-08-04] MEDS: DOCUSATE SODIUM 100 MG CAPSULE PO SCH (09:39)
[2017-08-04] MEDS ORDERED: LISINOPRIL 10 MG TABLET PO SCH (10:00)
[2017-08-04 12:06] VITALS: BP 152/78
== END 2017-08-04 13:45 | DRG 352 ==
LOC: 5 13:21 → OBSVTOIN 13:21
PROVIDERS: ADMIT Internal Medicine Geriatric Medicine; ATTEND Internal Medicine Geriatric Medicine
PROC: 0YU50JZ Supplement Right Inguinal Region with Synthetic Substitute, Open Approach (ICD-10-PCS; principal; 2017-07-30 12:45)
DX: K40.30 Unilateral inguinal hernia, with obstruction, without gangrene, not specified as recurrent (principal); I10 Essential (primary) hypertension; E66.9 Obesity, unspecified; Z68.36 Body mass index [BMI] 36.0-36.9, adult; Z60.2 Problems related to living alone; Z87.820 Personal history of traumatic brain injury; Z79.899 Other long term (current) drug therapy; Z98.42 Cataract extraction status, left eye; Z98.41 Cataract extraction status, right eye; Z91.030 Bee allergy status; Z79.82 Long term (current) use of aspirin; Z79.51 Long term (current) use of inhaled steroids; Z80.9 Family history of malignant neoplasm, unspecified
CPT/HCPCS: 00830; 36415; 71046; 74018; 80048; 80053; 81001; 82565; 85025; 85027; 85610; 85730; 87040; 87086; 88302; 93005; 93010; C1781; C9290; G8978-GP; G8979-GP; J0131; J0330; J0690; J1100; J1650; J1885; J2250; J2270; J2405; J2704; J3010; J3490; J7030

== ENCOUNTER 2017-10-06 05:30 | Day surgery (SDC) | payer MEDICARE, OTHER ==
[2017-09-22 10:57] LABS: HEMATOCRIT 35.5 % (37.9-51.0); HEMOGLOBIN 12.3 g/dL (13.5-17.0); MEAN CORPUSCULAR HEMOGLOBIN 31.5 pg (27.0-33.4); MEAN CORPUSCULAR HGB CONC 34.7 g/dL (32.0-36.0); MEAN CORPUSCULAR VOLUME 91 fl (80-97); PLATELET COUNT 194 10^3/uL (150-450); RED BLOOD COUNT 3.91 10^6/uL (4.35-5.55); WHITE BLOOD COUNT 6.3 10^3/uL (4.0-10.5)
[2017-09-22 11:04] LABS: INTERNATIONAL RATION (INR) 0.92; PROTHROMBIN TIME 12.8 SEC (11.4-15.4)
[2017-09-22 11:05] LABS: PARTIAL THROMBOPLASTIN TIME 26.4 SEC (23.5-35.8)
[2017-09-22 11:19] LABS: ANION GAP 10 (5-19); BLOOD UREA NITROGEN 23 mg/dL (7-20); CALCIUM 9.9 mg/dL (8.4-10.2); CARBON DIOXIDE 33 mmol/L (22-30); CHLORIDE 100 mmol/L (98-107); GLUCOSE 104 mg/dL (75-110); POTASSIUM 4.2 mmol/L (3.6-5.0); SODIUM 142.5 mmol/L (137-145)
--- NOTE | 2017-09-22 20:44 | EKG REPORT ---
SEVERITY:- NORMAL ECG - SINUS RHYTHM : Confirmed by: Tracie Aleman MD 22-Sep-2017 20:43:22
[~2017-10-06 05:30] MED LIST: CEFAZOLIN 1 GM/D5W RTU 1 GM/50 ML RTUPB IV PRN; LACTATED RINGERS 1000 ML IV PRN; LIDOCAINE 0.5% INJ-PF (5 MG/ML) 50 ML SDV SUBCUT PRN
[2017-10-06] MEDS ORDERED: SODIUM BICARBONATE 8.4% INJ 50 MEQ/50 ML DISP.SYRIN ONE (06:02)
[2017-10-06] MEDS ORDERED: POVIDONE-IODINE 5% OPH PREP SOLN 30 ML ONE (06:02)
[2017-10-06] MEDS ORDERED: LIDOCAINE 1%/EPINEPHRINE INJ 20 ML VIAL ONE (06:02)
[2017-10-06] MEDS ORDERED: FENTANYL CITRATE INJ/PF 100 MCG/2 ML AMPUL ONE (06:58)
[2017-10-06] MEDS ORDERED: LIDOCAINE 2% INJ-PF (20 MG/ML) 10 ML AMPUL ONE (06:58)
[2017-10-06] MEDS ORDERED: KETAMINE HCL INJ 500 MG/10 ML VIAL ONE (06:58)
[2017-10-06] MEDS ORDERED: MIDAZOLAM 2 MG/2 ML INJ ONE (06:59)
[2017-10-06] MEDS ORDERED: ACETAMINOPHEN 1,000 MG/100 ML RTUPB IV ONE (06:59)
[2017-10-06] MEDS ORDERED: ONDANSETRON HCL INJ/PF 4 MG/2 ML SDV ONE (06:59)
[2017-10-06] MEDS ORDERED: PROPOFOL INJ 200 MG/20 ML VIAL IV ONE (06:59)
[2017-10-06] MEDS ORDERED: GLYCOPYRROLATE INJ 0.4 MG/2 ML VIAL ONE (07:13)
[2017-10-06] MEDS ORDERED: DEXAMETHASONE SOD PHOSPHATE INJ 4 MG/1 ML VIAL ONE (07:14)
[2017-10-06] MEDS ORDERED: ONDANSETRON HCL INJ/PF 4 MG/2 ML SDV IV PRN (08:32)
[2017-10-06] MEDS ORDERED: PROMETHAZINE HCL INJ 25 MG/1 ML VIAL IV PRN (08:32)
[2017-10-06] MEDS ORDERED: DIPHENHYDRAMINE HCL 50 MG/ML VIAL IV PRN (08:32)
[2017-10-06] MEDS ORDERED: MEPERIDINE HCL/PF INJ 25 MG/1 ML DISP.SYRIN IV PRN (08:32)
[2017-10-06] MEDS ORDERED: FENTANYL CITRATE INJ/PF 100 MCG/2 ML AMPUL IV PRN ×3 (08:32)
--- NOTE | 2017-10-06 09:44 | Operative Report ---
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 Squamous atypia and scarring noted on frozen section OPERATION: Excision of lesion of right helical rim with frozen section margin control and reconstruction with a split thickness graft taking from the right clavicular area SURGEON: ELVA MCGARRY ANESTHESIA: LMAC TISSUE REMOVED OR ALTERED: Atypical lesion of the right helical rim COMPLICATIONS: None ESTIMATED BLOOD LOSS: Minimal PROCEDURE: The patient was brought into the operating room. The patient was laid on the operating room table in a supine position. The patient was prepped and draped in a sterile and aseptic fashion. After a timeout we then went ahead and marked the area on the ear to be resected. The 12:00 margin was towards the apex of the ear. The 3:00 margin was towards the anti-helix. The 6:00 margin was towards the lobule. The 9:00 margin was towards the posterior ear. Then went ahead and anesthetize the area with 1% lidocaine with epinephrine. Then went ahead and excise the area. Stitch was placed at 12:00 and it was sent for frozen section. Frozen section results came back that the deep and lateral margins were clear. We irrigated the wound with Betadine sterile water to lyse any remaining cancer cells. We then went ahead and decided that because of the size of the defect we will proceed with a skin graft. Decided to harvest the graft from the right clavicular area. We then went ahead and harvest the split thickness graft. We closed the area with 4-0 Vicryl sutures and the skin was then closed with 4- 0 PDS with knots being tied on the outside and a support stitch in the center. At the end of the case tincture of benzoin and Steri-Strips were applied with a light pressure dressing. Graft was then defatted to the appropriate size and placed into the area of defect. It was then sutured into place with 5-0 Prolene sutures leaving one end long. After all the sutures were placed we then went ahead and applied Xeroform. Then went ahead and created a bolus dressing and tied each suture 180 from each other. Then tied the sutures again to each other. Bacitracin was applied. 2 x 2's were applied and tincture benzoin and the dressing was taped into place. At the end of the case the patient was doing well and brought to the [facility] for recovery The approximate size of the lesion was 1.3 x 1.2 cm. This dictation was performed using [employer]or[employer] naturally speaking. If there are any inconsistencies please contact the dictating surgeon. Subjective: No complaints Objective: Vital signs stable afebrile No bleeding Dressing intact Assessment and plan: Doing well. Elevate the operative site. Resume medications. Take antibiotics for 1 day Follow-up Full instructions were given to the patient and family and they understand Portions of this note may be dictated using Blendagram voice recognition software. Occasional variations and spelling and vocabulary could be possible and are unintentional. Additionally, there is a chance that some errors may not be caught or corrected. Please notify the offer of any discrepancies noted or if any statements are unclear.
--- NOTE | 2017-10-06 09:47 | Discharge Summary ---
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 Chest dressing may be removed and 2 days but leave the Steri-Strips in place. Do not lay on the ear. Do not shake or move the ear. Do not get the dressings wet. Antibiotics for 1 day, then discontinue. Elevate operative area to decrease swelling. Do not strain, or lift heavy objects. Call for excessive bleeding, increased temperature of 101, uncontrolled pain, or excessive nausea or vomiting. You may reach Dr. Bailey through his office at [phone]. In the event of an emergency after hours, then contact Dr. Bailey through [facility]. Return to the office for a postop check on . The time will be scheduled by the nursing staff of [facility] prior to discharge. Please give the patient a copy of their labs and EKG so they can bring this to their PMD. Thank you Portions of this note may be dictated using Kivo voice recognition software. Occasional variations and spelling and vocabulary could be possible and are unintentional. Additionally, there is a chance that some errors may not be caught or corrected. Please notify the offer of any discrepancies noted or if any statements are unclear. Referrals: MAIDA LY MD [Primary Care Provider] - Discharge Diet: As Tolerated Report the Following to Your Physician Immediately: Unusual Bleeding - Keep head elevated. Do not touch the ear dressing. Do not sleep on the ear. Take off the chest dressing in 2 days. Leave the Steri-Strips in place. Keep head elevated. Sleep with head elevated.
[2017-10-06 11:42] VITALS: BP 134/84
== END 2017-10-06 11:43 | disposition home or self-care (01) ==
LOC: OROUT 05:30
PROVIDERS: ATTEND Plastic Surgery
DX: C44.292 Other specified malignant neoplasm of skin of right ear and external auricular canal (principal); I10 Essential (primary) hypertension; R26.81 Unsteadiness on feet; E66.9 Obesity, unspecified; Z68.39 Body mass index [BMI] 39.0-39.9, adult; Z79.82 Long term (current) use of aspirin; Z79.899 Other long term (current) drug therapy; Z79.51 Long term (current) use of inhaled steroids; Z87.892 Personal history of anaphylaxis; Z87.820 Personal history of traumatic brain injury
CPT/HCPCS: 93005; 36415 ×2; 84132; 85027; 85610; 85730; 80048; 88305 ×2; 88331 ×2; 93010; 11642; 15120; J2250; J0690; J1100; J3010; J3490 ×4; J2405; J2704; J0131; 300

== ENCOUNTER 2017-12-15 11:56 | Inpatient (IN) | payer MEDICARE ==
--- NOTE | 2017-12-15 14:05 | RADIOLOGY REPORT (SQ) ---
EXAM DESCRIPTION: PELVIS AP COMPLETED DATE/TIME: 12/15/2017 1:49 pm REASON FOR STUDY: Fell and injured right leg , injury pain COMPARISON: Abdominal films 07/29/2017 NUMBER OF VIEWS: One view TECHNIQUE: AP Pelvis LIMITATIONS: None. FINDINGS: MINERALIZATION: Normal. HIPS: No acute fracture or dislocation. No worrisome bone lesions. No significant joint space narrow ing or bony spurring. PELVIS AND SACRUM: Intact. Mild sclerosis right SI joint. PUBIS AND ISCHIUM: No acute fracture. LOWER LUMBAR SPINE: Disc space narrowing and vertebral body endplate sclerosis L4-5 and L5-S1 SOFT TISSUES: No findings. OTHER: No other significant finding. IMPRESSION: No acute displaced fracture TECHNICAL DOCUMENTATION: JOB ID: [id number] [employer]- All Rights Reserved Reading location - IP/workstation name: [email or web address]
--- NOTE | 2017-12-15 14:07 | RADIOLOGY REPORT (SQ) ---
EXAM DESCRIPTION: FEMUR RIGHT COMPLETED DATE/TIME: 12/15/2017 1:49 pm REASON FOR STUDY: Fell and injured right leg , injury pain COMPARISON: Right hip and pelvis films same date NUMBER OF VIEWS: Two views. TECHNIQUE: Two radiographic images acquired of the right femur to include hip and knee in at least o ne projection. LIMITATIONS: Motion artifact on the lateral view which includes the lateral knee FINDINGS: MINERALIZATION: Normal. BONES: No acute fracture. No worrisome bone lesions. SOFT TISSUES: No obvious swelling or foreign body. OTHER: No significant right hip or right knee joint space narrowing. Suboptimal visualization of the lateral patella IMPRESSION: Limited negative study. No acute right femur fracture TECHNICAL DOCUMENTATION: JOB ID: [id number] [employer]- All Rights Reserved Reading location - IP/workstation name: [email or web address]
[2017-12-15 14:49] LABS: HEMATOCRIT 40.9 % (37.9-51.0); HEMOGLOBIN 14.4 g/dL (13.5-17.0); MEAN CORPUSCULAR HEMOGLOBIN 32.2 pg (27.0-33.4); MEAN CORPUSCULAR HGB CONC 35.3 g/dL (32.0-36.0); MEAN CORPUSCULAR VOLUME 91 fl (80-97); PLATELET COUNT 175 10^3/uL (150-450); RED BLOOD COUNT 4.48 10^6/uL (4.35-5.55); RED CELL DISTRIBUTION WIDTH 13.6 % (11.5-14.0); WHITE BLOOD COUNT 13.6 10^3/uL (4.0-10.5)
[2017-12-15 14:54] LABS: APPEARANCE,URINE CLOUDY; BILIRUBIN,URINE NEGATIVE (NEGATIVE); GLUCOSE, URINE NEGATIVE (NEGATIVE); KETONES,URINE TRACE mg/dL (NEGATIVE); LEUKOCYTE ESTERASE,URINE MODERATE (NEGATIVE); NITRITE,URINE POSITIVE (NEGATIVE); PROTEIN,URINE 100 mg/dL (NEGATIVE); URINE SPECIFIC GRAVITY 1.023; UROBILINOGEN,URINE NEGATIVE mg/dL (<2.0)
[2017-12-15 14:55] LABS: COLOR,URINE DARK YELLOW
[2017-12-15 15:06] LABS: ALANINE AMINOTRANSFERASE 125 U/L (21-72); ALBUMIN 3.7 g/dL (3.5-5.0); ALKALINE PHOSPHATASE 79 U/L (38-126); ANION GAP 9 (5-19); ASPARTATE AMINO TRANSFERASE 354 U/L (17-59); BILIRUBIN,DIRECT 0.3 mg/dL (0.0-0.4); BILIRUBIN,TOTAL 1.1 mg/dL (0.2-1.3); BLOOD UREA NITROGEN 35 mg/dL (7-20); CALCIUM 9.5 mg/dL (8.4-10.2); CARBON DIOXIDE 29 mmol/L (22-30); CHLORIDE 100 mmol/L (98-107); GLUCOSE 105 mg/dL (75-110); POTASSIUM 3.9 mmol/L (3.6-5.0); SODIUM 138.2 mmol/L (137-145); TOTAL PROTEIN 6.9 g/dL (6.3-8.2)
[2017-12-15 15:08] LABS: ABSOLUTE MONOCYTES # (MANUAL) 0.3 10^3/uL (0.1-1.4); ABSOLUTE NEUTROPHILS# (MANUAL) 12.4 10^3/uL (1.7-8.2); BAND NEUTROPHILS % (MANUAL) 9 % (3-5); BASOPHILS % (MANUAL) 0 % (0-2); EOSINOPHILS % (MANUAL) 0 % (0-6); LYMPHOCYTES % (MANUAL) 6 % (13-45); MONOCYTES % (MANUAL) 2 % (3-13); SEGMENTED NEUTROPHILS % (MAN) 82 % (42-78); TOTAL CELLS COUNTED 100
[2017-12-15 15:09] LABS: PLATELET COMMENT ADEQUATE; RBC MORPHOLOGY COMMENT NORMO-CYTIC/CHROMIC
[2017-12-15] MEDS ORDERED: CEFTRIAXONE INJ 1000 MG VIAL IV ONE (15:29)
[2017-12-15 15:31] LABS: CREATINE KINASE 12831 U/L (55-170)
[2017-12-15] MEDS ORDERED: NORMAL SALINE 1000 ML 1,000 ML IV ONE (16:07)
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
--- NOTE | 2017-12-15 17:02 | RADIOLOGY REPORT (SQ) ---
EXAM DESCRIPTION: CHEST SINGLE VIEW COMPLETED DATE/TIME: 12/15/2017 4:45 pm REASON FOR STUDY: Sepsis, UTI, cellulitis leg, rhabdomyolysis COMPARISON: 07/29/2017 EXAM PARAMETERS: NUMBER OF VIEWS: One view. TECHNIQUE: Single frontal radiographic view of the chest acquired. RADIATION DOSE: NA LIMITATIONS: None. FINDINGS: LUNGS AND PLEURA: Atelectasis at the left base. Right lung is clear. MEDIASTINUM AND HILAR STRUCTURES: No masses. Contour normal. HEART AND VASCULAR STRUCTURES: Heart normal in size. Normal vasculature. BONES: No acute findings. HARDWARE: None in the chest. OTHER: No other significant finding. IMPRESSION: Left basilar atelectasis. TECHNICAL DOCUMENTATION: JOB ID: [id number] [employer]- All Rights Reserved Reading location - IP/workstation name: [email or web address]
[2017-12-15] MEDS ORDERED: PROMETHAZINE HCL 25 MG TABLET PO ONE (18:33)
[2017-12-15] MEDS ORDERED: VANCOMYCIN HCL 0 MG in DEXTROSE 5%-WATER 250 ML IV NR (19:30)
[2017-12-15] MEDS ORDERED: ALBUTEROL SULFATE HFA (90 MCG/PUFF) 200 PUFF/8.5 GM MDI IH PRN (19:33)
--- NOTE | 2017-12-15 19:40 | EKG REPORT ---
SEVERITY:- ABNORMAL ECG - SINUS TACHYCARDIA NONSPECIFIC T ABNORMALITIES, LATERAL LEADS : Confirmed by: Tristen Lu 15-Dec-2017 19:39:16
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
[2017-12-15] MEDS: NORMAL SALINE 1000 ML 1,000 ML IV PRN (22:01)
[2017-12-15] MEDS: VANCOMYCIN HCL 1,250 MG in DEXTROSE 5%-WATER 250 ML IV SCH (22:01)
[2017-12-16] MEDS: PIPERACILLIN SODIUM/TAZOBACTAM 3.375 GM in NORMAL SALINE 100 ML IV SCH ×4 (00:57→17:33)
[2017-12-16 05:29] LABS: ABSOLUTE BASOPHILS # (AUTO) 0.1 10^3/uL (0.0-0.2); ABSOLUTE MONOCYTES (AUTO) 0.4 10^3/uL (0.1-1.4); ABSOLUTE NEUT (AUTO) 11.1 10^3/uL (1.7-8.2); BASOPHILS % (AUTO) 0.4 % (0-2); HEMATOCRIT 35.6 % (37.9-51.0); HEMOGLOBIN 12.7 g/dL (13.5-17.0); LYMPHOCYTES % (AUTO) 8.2 % (13-45); MEAN CORPUSCULAR HEMOGLOBIN 32.3 pg (27.0-33.4); MEAN CORPUSCULAR HGB CONC 35.7 g/dL (32.0-36.0); MEAN CORPUSCULAR VOLUME 91 fl (80-97); MONOCYTES % (AUTO) 2.9 % (3-13); PLATELET COUNT 134 10^3/uL (150-450); RED BLOOD COUNT 3.94 10^6/uL (4.35-5.55); RED CELL DISTRIBUTION WIDTH 13.9 % (11.5-14.0); SEGMENTED NEUTROPHILS % (AUTO) 88.5 % (42-78); TOTAL CELLS COUNTED % (AUTO) 100 %; WHITE BLOOD COUNT 12.5 10^3/uL (4.0-10.5)
[2017-12-16] MEDS: LANSOPRAZOLE 30 MG TAB.RAP.DR PO SCH (05:44)
[2017-12-16 05:51] LABS: ALANINE AMINOTRANSFERASE 156 U/L (21-72); ALBUMIN 2.9 g/dL (3.5-5.0); ALKALINE PHOSPHATASE 67 U/L (38-126); ANION GAP 6 (5-19); ASPARTATE AMINO TRANSFERASE 337 U/L (17-59); BILIRUBIN,DIRECT 0.4 mg/dL (0.0-0.4); BILIRUBIN,TOTAL 0.9 mg/dL (0.2-1.3); BLOOD UREA NITROGEN 27 mg/dL (7-20); CALCIUM 8.4 mg/dL (8.4-10.2); CARBON DIOXIDE 28 mmol/L (22-30); CHLORIDE 101 mmol/L (98-107); GLUCOSE 117 mg/dL (75-110); POTASSIUM 3.5 mmol/L (3.6-5.0); SODIUM 134.9 mmol/L (137-145); TOTAL PROTEIN 5.6 g/dL (6.3-8.2)
[2017-12-16] MEDS: ENOXAPARIN SODIUM INJ 40 MG/0.4 ML DISP.SYRIN SUBCUT SCH (09:21)
[2017-12-16] MEDS: ASPIRIN 81 MG TABLET, ENT COATED PO SCH (09:22)
[2017-12-16] MEDS: PRENATAL VITAMIN W DHA CAPSULE PO SCH (09:22)
[2017-12-16] MEDS: VANCOMYCIN HCL 1,250 MG in DEXTROSE 5%-WATER 250 ML IV SCH ×2 (09:38→22:04)
[2017-12-16] MEDS ORDERED: PNV CALCIUM PO SCH (10:00)
[2017-12-16] MEDS ORDERED: FOLIC PO SCH (10:00)
[2017-12-16] MEDS ORDERED: IRON CARB PO SCH (10:00)
[2017-12-16] MEDS ORDERED: LISINOPRIL 10 MG TABLET PO SCH (10:00)
[2017-12-16] MEDS ORDERED: [UNRECOGNIZED DRUG - OTHER] PO SCH (10:00)
[2017-12-16] MEDS: NORMAL SALINE 1000 ML 1,000 ML IV PRN (13:43)
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
[2017-12-16] MEDS: POTASSIUM CHLORIDE 10 MEQ CAPSULE.ER PO SCH (22:03)
[2017-12-17] MEDS: POTASSIUM CHLORIDE 10 MEQ CAPSULE.ER PO SCH (00:46)
[2017-12-17] MEDS: PIPERACILLIN SODIUM/TAZOBACTAM 3.375 GM in NORMAL SALINE 100 ML IV SCH ×4 (00:46→17:22)
[2017-12-17] MEDS: ACETAMINOPHEN 325 MG TABLET PO PRN (00:51)
[2017-12-17] MEDS: NORMAL SALINE 1000 ML 1,000 ML IV PRN ×2 (03:51→12:18)
[2017-12-17] MEDS ORDERED: NORMAL SALINE 500 ML IV PRN (05:00)
[2017-12-17 05:09] LABS: ABSOLUTE LYMPHOCYTES (AUTO) 1.2 10^3/uL (0.5-4.7); ABSOLUTE MONOCYTES (AUTO) 0.3 10^3/uL (0.1-1.4); ABSOLUTE NEUT (AUTO) 7.3 10^3/uL (1.7-8.2); BASOPHILS % (AUTO) 0.3 % (0-2); EOSINOPHILS % (AUTO) 0.2 % (0-6); HEMATOCRIT 31.5 % (37.9-51.0); HEMOGLOBIN 11.3 g/dL (13.5-17.0); LYMPHOCYTES % (AUTO) 13.9 % (13-45); MEAN CORPUSCULAR HEMOGLOBIN 32.5 pg (27.0-33.4); MEAN CORPUSCULAR HGB CONC 35.8 g/dL (32.0-36.0); MEAN CORPUSCULAR VOLUME 91 fl (80-97); MONOCYTES % (AUTO) 3.6 % (3-13); PLATELET COUNT 107 10^3/uL (150-450); RED BLOOD COUNT 3.48 10^6/uL (4.35-5.55); RED CELL DISTRIBUTION WIDTH 13.9 % (11.5-14.0); TOTAL CELLS COUNTED % (AUTO) 100 %; WHITE BLOOD COUNT 8.9 10^3/uL (4.0-10.5)
[2017-12-17 05:40] LABS: ALANINE AMINOTRANSFERASE 109 U/L (21-72); ALBUMIN 2.3 g/dL (3.5-5.0); ALKALINE PHOSPHATASE 73 U/L (38-126); ANION GAP 6 (5-19); ASPARTATE AMINO TRANSFERASE 164 U/L (17-59); BILIRUBIN,DIRECT 0.3 mg/dL (0.0-0.4); BILIRUBIN,TOTAL 0.6 mg/dL (0.2-1.3); BLOOD UREA NITROGEN 25 mg/dL (7-20); CALCIUM 8.1 mg/dL (8.4-10.2); CARBON DIOXIDE 24 mmol/L (22-30); CHLORIDE 107 mmol/L (98-107); GLUCOSE 111 mg/dL (75-110); POTASSIUM 3.8 mmol/L (3.6-5.0); SODIUM 137.4 mmol/L (137-145)
[2017-12-17] MEDS ORDERED: NORMAL SALINE 500 ML IV ONE (05:45)
[2017-12-17] MEDS: LANSOPRAZOLE 30 MG TAB.RAP.DR PO SCH (06:25)
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
[2017-12-17] MEDS: PRENATAL VITAMIN W DHA CAPSULE PO SCH (09:31)
[2017-12-17] MEDS: ASPIRIN 81 MG TABLET, ENT COATED PO SCH (09:31)
[2017-12-17] MEDS: ENOXAPARIN SODIUM INJ 40 MG/0.4 ML DISP.SYRIN SUBCUT SCH (09:31)
[2017-12-17] MEDS: VANCOMYCIN HCL 1,250 MG in DEXTROSE 5%-WATER 250 ML IV SCH ×2 (09:32→21:23)
[2017-12-17 11:45] LABS: VANCOMYCIN,TROUGH 12.3 ug/mL (5.0-20.0)
[2017-12-18] MEDS: PIPERACILLIN SODIUM/TAZOBACTAM 3.375 GM in NORMAL SALINE 100 ML IV SCH ×5 (00:50→23:10)
[2017-12-18] MEDS: NORMAL SALINE 1000 ML 1,000 ML IV PRN ×2 (04:00→13:53)
[2017-12-18] MEDS: LANSOPRAZOLE 30 MG TAB.RAP.DR PO SCH (05:25)
[2017-12-18] MEDS: ENOXAPARIN SODIUM INJ 40 MG/0.4 ML DISP.SYRIN SUBCUT SCH (10:38)
[2017-12-18] MEDS: ASPIRIN 81 MG TABLET, ENT COATED PO SCH (10:42)
[2017-12-18] MEDS: LISINOPRIL 10 MG TABLET PO SCH (10:42)
[2017-12-18] MEDS: VANCOMYCIN HCL 1,250 MG in DEXTROSE 5%-WATER 250 ML IV SCH ×2 (10:43→21:19)
[2017-12-18] MEDS: PRENATAL VITAMIN W DHA CAPSULE PO SCH (11:38)
[2017-12-18] MEDS: ACETAMINOPHEN 325 MG TABLET PO PRN (16:33)
[2017-12-18 16:39] LABS: HEPATITIS A AB IGM Negative (Negative); HEPATITIS B CORE AB IGM Negative (Negative); HEPATITS B SURFACE ANTIGEN Negative (Negative)
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
[2017-12-19] MEDS: NORMAL SALINE 1000 ML 1,000 ML IV PRN ×2 (02:37→15:56)
[2017-12-19] MEDS: PIPERACILLIN SODIUM/TAZOBACTAM 3.375 GM in NORMAL SALINE 100 ML IV SCH ×4 (05:45→23:13)
[2017-12-19] MEDS: LANSOPRAZOLE 30 MG TAB.RAP.DR PO SCH (05:45)
[2017-12-19 06:01] LABS: ABSOLUTE EOSINOPHILS # (AUTO) 0.3 10^3/uL (0.0-0.6); ABSOLUTE LYMPHOCYTES (AUTO) 1.2 10^3/uL (0.5-4.7); ABSOLUTE MONOCYTES (AUTO) 0.6 10^3/uL (0.1-1.4); ABSOLUTE NEUT (AUTO) 8.2 10^3/uL (1.7-8.2); BASOPHILS % (AUTO) 0.4 % (0-2); EOSINOPHILS % (AUTO) 2.9 % (0-6); HEMATOCRIT 30.8 % (37.9-51.0); HEMOGLOBIN 10.8 g/dL (13.5-17.0); LYMPHOCYTES % (AUTO) 11.4 % (13-45); MEAN CORPUSCULAR HEMOGLOBIN 32.6 pg (27.0-33.4); MEAN CORPUSCULAR HGB CONC 35.2 g/dL (32.0-36.0); MEAN CORPUSCULAR VOLUME 93 fl (80-97); MONOCYTES % (AUTO) 5.5 % (3-13); PLATELET COUNT 132 10^3/uL (150-450); RED BLOOD COUNT 3.32 10^6/uL (4.35-5.55); RED CELL DISTRIBUTION WIDTH 14.2 % (11.5-14.0); SEGMENTED NEUTROPHILS % (AUTO) 79.8 % (42-78); TOTAL CELLS COUNTED % (AUTO) 100 %; WHITE BLOOD COUNT 10.3 10^3/uL (4.0-10.5)
[2017-12-19 06:27] LABS: ALANINE AMINOTRANSFERASE 86 U/L (21-72); ALBUMIN 2.2 g/dL (3.5-5.0); ALKALINE PHOSPHATASE 222 U/L (38-126); ANION GAP 8 (5-19); ASPARTATE AMINO TRANSFERASE 66 U/L (17-59); BILIRUBIN,DIRECT 0.4 mg/dL (0.0-0.4); BILIRUBIN,TOTAL 0.5 mg/dL (0.2-1.3); BLOOD UREA NITROGEN 23 mg/dL (7-20); CALCIUM 7.8 mg/dL (8.4-10.2); CARBON DIOXIDE 20 mmol/L (22-30); CHLORIDE 111 mmol/L (98-107); CREATINE KINASE 458 U/L (55-170); GLUCOSE 96 mg/dL (75-110); POTASSIUM 3.5 mmol/L (3.6-5.0); SODIUM 138.7 mmol/L (137-145); TOTAL PROTEIN 4.5 g/dL (6.3-8.2)
[2017-12-19] MEDS: ASPIRIN 81 MG TABLET, ENT COATED PO SCH (09:09)
[2017-12-19] MEDS: MULTIVITAMINS W-IRON TABLET, CHEWABLE PO SCH (09:09)
[2017-12-19] MEDS: VANCOMYCIN HCL 1,250 MG in DEXTROSE 5%-WATER 250 ML IV SCH ×2 (09:09→21:19)
[2017-12-19] MEDS: LISINOPRIL 10 MG TABLET PO SCH (09:09)
[2017-12-19] MEDS: ENOXAPARIN SODIUM INJ 40 MG/0.4 ML DISP.SYRIN SUBCUT SCH (09:10)
--- NOTE | 2017-12-19 16:51 | PDOC PROGRESS REPORT ---
Subjective Progress Note for:: 12/19/17 Subjective:: Patient seen by the bedside, he was admitted for the management of cellulitis of the left leg Reason For Visit: FALL AT HOME, ACUTE RHABDOMYOLYSIS LEFT LEG Physical Exam Vital Signs: Temp Pulse Resp BP Pulse Ox 97.6 F 88 18 116/60 99 12/19/17 14:53 12/19/17 14:53 12/19/17 14:53 12/19/17 14:53 12/19/17 14:53 Intake & Output 12/18/17 12/19/17 12/20/17 06:59 06:59 06:59 Intake Total 4419 4488 1875 Output Total 1425 1510 400 Balance 2994 2978 1475 Weight 101.5 kg 104.1 kg General appearance: PRESENT: no acute distress Eye exam: PRESENT: PERRLA Respiratory exam: PRESENT: clear to auscultation charline Cardiovascular exam: PRESENT: +S1, +S2 GI/Abdominal exam: PRESENT: soft Extremities exam: PRESENT: other - Left leg cellulitis Neurological exam: PRESENT: alert Results Laboratory Results: 12/19/17 04:44 12/19/17 04:44 12/19/17 12/19/17 04:44 04:44 WBC 10.3 RBC 3.32 L Hgb 10.8 L Hct 30.8 L MCV 93 MCH 32.6 MCHC 35.2 RDW 14.2 H Plt Count 132 L Seg Neutrophils % 79.8 H Lymphocytes % 11.4 L Monocytes % 5.5 Eosinophils % 2.9 Basophils % 0.4 Absolute Neutrophils 8.2 Absolute Lymphocytes 1.2 Absolute Monocytes 0.6 Absolute Eosinophils 0.3 Absolute Basophils 0.0 Sodium 138.7 Potassium 3.5 L Chloride 111 H Carbon Dioxide 20 L Anion Gap 8 BUN 23 H Creatinine 1.51 H Est GFR ( Amer) 56 L Est GFR (Non-Af Amer) 46 L Glucose 96 Calcium 7.8 L Total Bilirubin 0.5 AST 66 H ALT 86 H Alkaline Phosphatase 222 H Total Protein 4.5 L Albumin 2.2 L 12/19/17 04:44 Creatine Kinase 458 H Impressions: Pelvis X-Ray 12/15/17 12:40 IMPRESSION: No acute displaced fracture Femur X-Ray 12/15/17 12:41 IMPRESSION: Limited negative study. No acute right femur fracture Chest X-Ray 12/15/17 16:27 IMPRESSION: Left basilar atelectasis. Assessment & Plan - Diagnosis (1) Cellulitis of left leg Is this a current diagnosis for this admission?: Yes Plan: Continue IV antibiotic (2) Rhabdomyolysis Qualifiers: Rhabdomyolysis type: non-traumatic Qualified Code(s): M62.82 - Rhabdomyolysis Is this a current diagnosis for this admission?: Yes (3) Fall in home Qualifiers: Encounter type: initial encounter Qualified Code(s): W19.XXXA - Unspecified fall, initial encounter; Y92.009 - Unspecified place in unspecified non-institutional (private) residence as the place of occurrence of the external cause; Y92.009 - Unspecified place in unspecified non-institutional ( private) residence as the place of occurrence of the external cause Is this a current diagnosis for this admission?: Yes
[2017-12-20] MEDS: NORMAL SALINE 1000 ML 1,000 ML IV PRN ×2 (04:56→17:02)
[2017-12-20] MEDS: PIPERACILLIN SODIUM/TAZOBACTAM 3.375 GM in NORMAL SALINE 100 ML IV SCH ×4 (05:00→23:25)
[2017-12-20] MEDS: LANSOPRAZOLE 30 MG TAB.RAP.DR PO SCH (05:00)
[2017-12-20 06:53] LABS: HEPATITIS C VIRUS ANTIBODY <0.1 s/co ratio (0.0-0.9)
[2017-12-20] MEDS: VANCOMYCIN HCL 1,250 MG in DEXTROSE 5%-WATER 250 ML IV SCH (09:05)
[2017-12-20] MEDS: ASPIRIN 81 MG TABLET, ENT COATED PO SCH (09:06)
[2017-12-20] MEDS: MULTIVITAMINS W-IRON TABLET, CHEWABLE PO SCH (09:06)
[2017-12-20] MEDS: ENOXAPARIN SODIUM INJ 40 MG/0.4 ML DISP.SYRIN SUBCUT SCH (09:08)
[2017-12-20] MEDS: LISINOPRIL 10 MG TABLET PO SCH (09:08)
[2017-12-20] MEDS: ACETAMINOPHEN 325 MG TABLET PO PRN (10:47)
--- NOTE | 2017-12-20 16:40 | PDOC PROGRESS REPORT ---
Subjective Progress Note for:: 12/20/17 Subjective:: There is no new complaints Reason For Visit: FALL AT HOME, ACUTE RHABDOMYOLYSIS LEFT LEG Physical Exam Vital Signs: Temp Pulse Resp BP Pulse Ox 98.6 F 78 18 119/51 L 100 12/20/17 16:01 12/20/17 16:03 12/20/17 16:01 12/20/17 16:03 12/20/17 16:03 Intake & Output 12/19/17 12/20/17 12/21/17 06:59 06:59 06:59 Intake Total 4488 4125 1200 Output Total 1510 1075 400 Balance 2978 3050 800 Weight 104.1 kg 107.6 kg General appearance: PRESENT: no acute distress Eye exam: PRESENT: PERRLA Respiratory exam: PRESENT: clear to auscultation charline Cardiovascular exam: PRESENT: +S1, +S2 Results Laboratory Results: 12/19/17 04:44 12/19/17 04:44 12/19/17 04:44 Creatine Kinase 458 H Impressions: Pelvis X-Ray 12/15/17 12:40 IMPRESSION: No acute displaced fracture Femur X-Ray 12/15/17 12:41 IMPRESSION: Limited negative study. No acute right femur fracture Chest X-Ray 12/15/17 16:27 IMPRESSION: Left basilar atelectasis. Assessment & Plan - Diagnosis (1) Cellulitis of left leg Is this a current diagnosis for this admission?: Yes (2) Rhabdomyolysis Qualifiers: Rhabdomyolysis type: non-traumatic Qualified Code(s): M62.82 - Rhabdomyolysis Is this a current diagnosis for this admission?: Yes (3) Fall in home Qualifiers: Encounter type: initial encounter Qualified Code(s): W19.XXXA - Unspecified fall, initial encounter; Y92.009 - Unspecified place in unspecified non-institutional (private) residence as the place of occurrence of the external cause; Y92.009 - Unspecified place in unspecified non-institutional ( private) residence as the place of occurrence of the external cause Is this a current diagnosis for this admission?: Yes - Plan Summary Plan Summary: Continue treatment
[2017-12-20] MEDS: VANCOMYCIN HCL 1,000 MG in DEXTROSE 5%-WATER 250 ML IV SCH (21:49)
[2017-12-21] MEDS: PIPERACILLIN SODIUM/TAZOBACTAM 3.375 GM in NORMAL SALINE 100 ML IV SCH ×3 (05:39→17:00)
[2017-12-21] MEDS: LANSOPRAZOLE 30 MG TAB.RAP.DR PO SCH (05:40)
[2017-12-21] MEDS: NORMAL SALINE 1000 ML 1,000 ML IV PRN ×2 (05:42→20:21)
[2017-12-21] MEDS: ENOXAPARIN SODIUM INJ 40 MG/0.4 ML DISP.SYRIN SUBCUT SCH (09:50)
[2017-12-21] MEDS: MULTIVITAMINS W-IRON TABLET, CHEWABLE PO SCH (09:51)
[2017-12-21] MEDS: ASPIRIN 81 MG TABLET, ENT COATED PO SCH (09:51)
[2017-12-21] MEDS: VANCOMYCIN HCL 1,000 MG in DEXTROSE 5%-WATER 250 ML IV SCH (09:51)
[2017-12-21] MEDS: LISINOPRIL 10 MG TABLET PO SCH (09:51)
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
[2017-12-21 20:11] LABS: ABSOLUTE BASOPHILS # (AUTO) 0.1 10^3/uL (0.0-0.2); ABSOLUTE EOSINOPHILS # (AUTO) 0.4 10^3/uL (0.0-0.6); ABSOLUTE LYMPHOCYTES (AUTO) 1.2 10^3/uL (0.5-4.7); ABSOLUTE MONOCYTES (AUTO) 0.6 10^3/uL (0.1-1.4); ABSOLUTE NEUT (AUTO) 7.5 10^3/uL (1.7-8.2); BASOPHILS % (AUTO) 0.9 % (0-2); EOSINOPHILS % (AUTO) 4.3 % (0-6); HEMATOCRIT 30.3 % (37.9-51.0); HEMOGLOBIN 10.6 g/dL (13.5-17.0); LYMPHOCYTES % (AUTO) 12.4 % (13-45); MEAN CORPUSCULAR HEMOGLOBIN 32.6 pg (27.0-33.4); MEAN CORPUSCULAR HGB CONC 35.1 g/dL (32.0-36.0); MEAN CORPUSCULAR VOLUME 93 fl (80-97); MONOCYTES % (AUTO) 6.3 % (3-13); PLATELET COUNT 252 10^3/uL (150-450); RED BLOOD COUNT 3.27 10^6/uL (4.35-5.55); RED CELL DISTRIBUTION WIDTH 14.7 % (11.5-14.0); SEGMENTED NEUTROPHILS % (AUTO) 76.1 % (42-78); TOTAL CELLS COUNTED % (AUTO) 100 %; WHITE BLOOD COUNT 9.8 10^3/uL (4.0-10.5)
[2017-12-21 20:31] LABS: ANION GAP 6 (5-19); BLOOD UREA NITROGEN 26 mg/dL (7-20); CALCIUM 8.1 mg/dL (8.4-10.2); CARBON DIOXIDE 24 mmol/L (22-30); CHLORIDE 112 mmol/L (98-107); CREATINE KINASE 56 U/L (55-170); GLUCOSE 126 mg/dL (75-110); POTASSIUM 3.7 mmol/L (3.6-5.0); SODIUM 141.8 mmol/L (137-145)
[2017-12-21] MEDS: DOXYCYCLINE HYCLATE 100 MG TABLET PO SCH (22:58)
[2017-12-22] MEDS ORDERED: LANSOPRAZOLE 30 MG TAB.RAP.DR PO SCH (06:00)
[2017-12-22] MEDS: NORMAL SALINE 1000 ML 1,000 ML IV PRN (07:33)
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
[2017-12-22] MEDS: LISINOPRIL 10 MG TABLET PO SCH (09:20)
[2017-12-22] MEDS: DOXYCYCLINE HYCLATE 100 MG TABLET PO SCH (09:20)
[2017-12-22] MEDS: ASPIRIN 81 MG TABLET, ENT COATED PO SCH (09:20)
[2017-12-22] MEDS: ACETAMINOPHEN 325 MG TABLET PO PRN (09:20)
[2017-12-22] MEDS: MULTIVITAMINS W-IRON TABLET, CHEWABLE PO SCH (09:20)
[2017-12-22] MEDS: ENOXAPARIN SODIUM INJ 40 MG/0.4 ML DISP.SYRIN SUBCUT SCH (09:27)
[2017-12-22 11:15] LABS: VANCOMYCIN,TROUGH 20.5 ug/mL (5.0-20.0)
[2017-12-22 15:09] VITALS: BP 141/70
== END 2017-12-22 16:59 | DRG 603 ==
LOC: ER 11:56 → EH 16:29 → 3N 18:37 → 3W 12-19 18:47
PROVIDERS: ADMIT Internal Medicine Geriatric Medicine; ATTEND Internal Medicine Geriatric Medicine
DX: L03.116 Cellulitis of left lower limb (principal); N39.0 Urinary tract infection, site not specified; M62.82 Rhabdomyolysis; G81.94 Hemiplegia, unspecified affecting left nondominant side; L03.115 Cellulitis of right lower limb; I10 Essential (primary) hypertension; W07.XXXA Fall from chair, initial encounter; Z60.2 Problems related to living alone; Z91.81 History of falling; Y93.89 Activity, other specified; Y92.098 Other place in other non-institutional residence as the place of occurrence of the external cause; Z87.820 Personal history of traumatic brain injury; Z79.82 Long term (current) use of aspirin; Z79.51 Long term (current) use of inhaled steroids; Z79.899 Other long term (current) drug therapy
CPT/HCPCS: 36415; 71045; 72170; 80048; 80053; 80074; 80202; 81001; 82550; 82565; 82962; 83735; 84484; 85025; 87040; 87086; 87088; 87186; 87493; 90686; 93005; 93010; 96374; 99285; J0696; J1650; J2543; J3370; J3490; J7030; J7060

== ENCOUNTER 2017-12-28 22:35 | Inpatient (IN) | payer MEDICARE, OTHER ==
[2017-12-29 01:04] LABS: ABSOLUTE BASOPHILS # (AUTO) 0.2 10^3/uL (0.0-0.2); ABSOLUTE EOSINOPHILS # (AUTO) 0.2 10^3/uL (0.0-0.6); ABSOLUTE LYMPHOCYTES (AUTO) 1.9 10^3/uL (0.5-4.7); ABSOLUTE MONOCYTES (AUTO) 0.8 10^3/uL (0.1-1.4); ABSOLUTE NEUT (AUTO) 12.1 10^3/uL (1.7-8.2); BASOPHILS % (AUTO) 1.1 % (0-2); EOSINOPHILS % (AUTO) 1.4 % (0-6); HEMATOCRIT 31.2 % (37.9-51.0); HEMOGLOBIN 10.8 g/dL (13.5-17.0); LYMPHOCYTES % (AUTO) 12.3 % (13-45); MEAN CORPUSCULAR HEMOGLOBIN 31.7 pg (27.0-33.4); MEAN CORPUSCULAR HGB CONC 34.7 g/dL (32.0-36.0); MEAN CORPUSCULAR VOLUME 91 fl (80-97); MONOCYTES % (AUTO) 5.4 % (3-13); PLATELET COUNT 559 10^3/uL (150-450); RED BLOOD COUNT 3.41 10^6/uL (4.35-5.55); RED CELL DISTRIBUTION WIDTH 14.3 % (11.5-14.0); SEGMENTED NEUTROPHILS % (AUTO) 79.8 % (42-78); TOTAL CELLS COUNTED % (AUTO) 100 %; WHITE BLOOD COUNT 15.1 10^3/uL (4.0-10.5)
[2017-12-29 01:21] LABS: ALANINE AMINOTRANSFERASE 33 U/L (21-72); ALKALINE PHOSPHATASE 237 U/L (38-126); ASPARTATE AMINO TRANSFERASE 33 U/L (17-59); BILIRUBIN,DIRECT 0.4 mg/dL (0.0-0.4); BILIRUBIN,TOTAL 0.5 mg/dL (0.2-1.3); BLOOD UREA NITROGEN 25 mg/dL (7-20); CALCIUM 8.9 mg/dL (8.4-10.2); GLUCOSE 108 mg/dL (75-110); POTASSIUM 3.2 mmol/L (3.6-5.0); TOTAL PROTEIN 6.8 g/dL (6.3-8.2)
[2017-12-29 01:24] LABS: INTERNATIONAL RATION (INR) 0.96; PROTHROMBIN TIME 13.3 SEC (11.4-15.4)
[2017-12-29 01:25] LABS: PARTIAL THROMBOPLASTIN TIME 28.9 SEC (23.5-35.8)
[2017-12-29 01:26] LABS: ANION GAP 6 (5-19); CARBON DIOXIDE 35 mmol/L (22-30); CHLORIDE 103 mmol/L (98-107); SODIUM 144.3 mmol/L (137-145)
[2017-12-29] MEDS ORDERED: PIPERACILLIN/TAZOBACTAM 3.375 GM VIAL IV ONE (02:52)
[2017-12-29] MEDS ORDERED: VANCOMYCIN HCL INJ 1000 MG VIAL IV ONE ×2 (02:53→03:02)
--- NOTE | 2017-12-29 02:54 | ER Document Report ---
ED General - General Chief Complaint: Rash Stated Complaint: RASH Time Seen by Provider: 12/28/17 22:42 Mode of Arrival: Stretcher Information source: Patient Notes: Patient complained of left leg swelling and pain. Also complained of generalized body rash since she started taking doxycycline. TRAVEL OUTSIDE OF THE [place] IN LAST 30 DAYS: No - HPI Onset/Duration: Gradual Quality of pain: Sharp Severity: Moderate Pain Level: 3 Associated symptoms: Leg swelling Exacerbated by: Movement Relieved by: Remaining still Similar symptoms previously: Yes Recently seen / treated by doctor: No - Related Data Allergies/Adverse Reactions: bee venom protein (honey bee) Allergy (Mild, Verified 12/15/17 12:16) Erythema multiforme No Known Drug Allergies Allergy (Verified 12/15/17 12:16) Past Medical History - Social History Smoking Status: Never Smoker Chew tobacco use (# tins/day): No Frequency of alcohol use: None Drug Abuse: None Family History: Reviewed & Not Pertinent Patient has suicidal ideation: No Patient has homicidal ideation: No - Past Medical History Cardiac Medical History: Reports: Hx Hypertension - ON MEDS Denies: Hx Coronary Artery Disease, Hx Heart Attack Pulmonary Medical History: Reports: Hx Pneumonia - 2016 Denies: Hx Asthma, Hx Bronchitis, Hx COPD Neurological Medical History: Denies: Hx Cerebrovascular Accident, Hx Seizures - UNKNOWN, NOT SINCE 1984 Endocrine Medical History: Denies: Hx Diabetes Mellitus Type 1, Hx Diabetes Mellitus Type 2 Renal/ Medical History: Denies: Hx Peritoneal Dialysis Musculoskeletal Medical History: Reports Hx Arthritis - LEFT HAND / WRIST Traumatic Medical History: Reports: Hx Traumatic Brain Injury Past Surgical History: Reports: Other - [place]. catarct surgery 2013 & 2014; Brain surgery 1957; Hand surgery 1983 - Immunizations Hx Diphtheria, Pertussis, Tetanus Vaccination: - UNKNOWN Hx Pneumococcal Vaccination: 11/14/16 Review of Systems - Review of Systems Constitutional: No symptoms reported EENT: No symptoms reported Cardiovascular: No symptoms reported Respiratory: No symptoms reported Gastrointestinal: No symptoms reported Genitourinary: No symptoms reported Male Genitourinary: No symptoms reported Musculoskeletal: Leg swelling Skin: Rash Hematologic/Lymphatic: No symptoms reported Neurological/Psychological: No symptoms reported -: Yes All other systems reviewed and negative Physical Exam - Vital signs Interpretation: Normal - General General appearance: Appears well, Alert - HEENT Head: Normocephalic, Atraumatic Eyes: Normal Pupils: PERRL - Respiratory Respiratory status: No respiratory distress Chest status: Nontender Breath sounds: Normal Chest palpation: Normal - Cardiovascular Rhythm: Regular Heart sounds: Normal auscultation Murmur: No - Abdominal Inspection: Normal Distension: No distension Bowel sounds: Normal Tenderness: Nontender Organomegaly: No organomegaly - Back Back: Normal, Nontender - Extremities General upper extremity: Normal inspection, Nontender, Normal color, Normal ROM , Normal temperature General lower extremity: Nontender, Edema, Normal ROM, Normal weight bearing, Other - Left leg is warm to touch with diffuse redness and swelling consistent with cellulitis.. No: Keshawn's sign - Neurological Neuro grossly intact: Yes Cognition: Normal Orientation: AAOx4 Carmen Coma Scale Eye Opening: Spontaneous Carmen Coma Scale Verbal: Oriented Carmen Coma Scale Motor: Obeys Commands Lawley Coma Scale Total: 15 Speech: Normal Motor strength normal: LUE, RUE, LLE, RLE Sensory: Normal - Psychological Associated symptoms: Normal affect, Normal mood - Skin Skin Temperature: Warm Skin Moisture: Dry Skin Color: Normal Skin irregularity: Rash Character of irregularity: Maculopapular Course - Laboratory Result Diagrams: 12/29/17 00:55 12/29/17 00:55 Laboratory results interpreted by me: 12/29/17 12/29/17 00:55 00:55 WBC 15.1 H RBC 3.41 L Hgb 10.8 L Hct 31.2 L RDW 14.3 H Plt Count 559 H Seg Neutrophils % 79.8 H Lymphocytes % 12.3 L Absolute Neutrophils 12.1 H Potassium 3.2 L Carbon Dioxide 35 H BUN 25 H Creatinine 1.57 H Est GFR ( Amer) 54 L Est GFR (Non-Af Amer) 44 L Alkaline Phosphatase 237 H Albumin 3.0 L - Diagnostic Test Radiology reviewed: Image reviewed, Reports reviewed - Transfer of Care Care transferred to following provider: I discussed with Dr. Vega who will admit patient for Dr. Ly. Notes: 12/29/17 03:46 Left leg cellulitis. Discharge - Discharge Clinical Impression: Cellulitis of left leg, Drug rash Condition: Stable Disposition: ADMITTED INPATIENT Admitting Provider: Arianne Unit Admitted: Medical Floor Referrals: MAIDA LY MD [Primary Care Provider] - Follow up as needed
--- NOTE | 2017-12-29 03:08 | RADIOLOGY REPORT (SQ) ---
EXAM DESCRIPTION: XR FOOT 1-2 VIEWS COMPLETED DATE/TME: 12/28/2017 23:49 CLINICAL HISTORY: 67 years, Male, pain COMPARISON: None. FINDINGS: 2 views of the left foot. Diffuse edema of the soft tissues. Osteopenia. No acute fracture. IMPRESSION: 1. No acute fracture or dislocation. Diffuse edema. 2011 [facility] [employer]- All Rights Reserved
--- NOTE | 2017-12-29 03:09 | RADIOLOGY REPORT (SQ) ---
EXAM DESCRIPTION: XR TIBIA FIBULA 2 VIEWS COMPLETED DATE/TME: 12/28/2017 23:49 CLINICAL HISTORY: 67 years, Male, swelling COMPARISON: None. FINDINGS: 2 views of the left tibia and fibula. No acute fracture or dislocation. Diffuse lower extremity soft tissue edema. Osteopenia. IMPRESSION: 1. No acute fracture or dislocation. Diffuse soft tissue edema. 2011 [employer] [facility] [employer]- All Rights Reserved
--- NOTE | 2017-12-29 03:09 | RADIOLOGY REPORT (SQ) ---
EXAM DESCRIPTION: XR ANKLE 2 VIEWS COMPLETED DATE/TME: 12/28/2017 23:49 CLINICAL HISTORY: 67 years, Male, pain COMPARISON: None. FINDINGS: 2 views of the left ankle. No acute fracture or dislocation. Osteopenia. Diffuse soft tissue edema. IMPRESSION: 1. No acute fracture or dislocation. Diffuse edema. 2011 [facility] [employer] [facility] [employer]- All Rights Reserved
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
[2017-12-29] MEDS ORDERED: VANCOMYCIN HCL 0 MG in DEXTROSE 5%-WATER 250 ML IV NR (08:45)
[2017-12-29] MEDS: LANSOPRAZOLE 30 MG TAB.RAP.DR PO SCH (09:25)
[2017-12-29] MEDS: POTASSIUM CHLORIDE 10 MEQ CAPSULE.ER PO SCH ×2 (09:25→13:25)
[2017-12-29] MEDS: ENOXAPARIN SODIUM INJ 40 MG/0.4 ML DISP.SYRIN SUBCUT SCH (09:25)
[2017-12-29] MEDS: NORMAL SALINE 1000 ML 1,000 ML IV PRN ×2 (09:26→17:26)
--- NOTE | 2017-12-29 10:03 | RADIOLOGY REPORT (SQ) ---
EXAM DESCRIPTION: VENOUS UNILATERAL LOWER COMPLETED DATE/TIME: 12/29/2017 9:45 am REASON FOR STUDY: Left leg swelling COMPARISON: None. TECHNIQUE: Dynamic and static luciano scale and color images acquired of the left leg venous system. Se lected spectral images acquired with additional compression and augmentation maneuvers. The contralat eral common femoral vein and saphenofemoral junction were also imaged. Images stored on PACS. LIMITATIONS: None. FINDINGS: COMMON FEMORAL: Normal phasicity, compression and augmentation. No visualized echogenic ma terial on luciano scale. No defects on color images. FEMORAL: Normal compression and augmentation. No visualized echogenic material on luciano scale. No defe cts on color images. POPLITEAL: Normal compression, augmentation. No visualized echogenic material on luciano scale. No defec ts on color images. CALF VESSELS: Normal compression, augmentation. No visualized echogenic material on luciano scale. No de fects on color images. GSV and SSV: Normal compression, augmentation. No visualized echogenic material on luciano scale. No def ects on color images. ANY DEEP VENOUS INSUFFICIENCY: Not evaluated. ANY EVIDENCE OF POPLITEAL CYST: No. OTHER: No other significant finding. CONTRALATERAL COMMON FEMORAL VEIN AND SAPHENOFEMORAL JUNCTION: Normal phasicity, compression and augmentation. No visualized echogenic material on luciano scale. No de fects on color images. IMPRESSION: NO EVIDENCE DVT OR SVT IN THE LEFT LEG. TECHNICAL DOCUMENTATION: JOB ID: [id number] [employer]- All Rights Reserved Reading location - IP/workstation name: [email or web address]
[2017-12-29] MEDS: PIPERACILLIN SODIUM/TAZOBACTAM 3.375 GM in NORMAL SALINE 100 ML IV SCH ×2 (11:29→17:24)
[2017-12-29] MEDS: VANCOMYCIN HCL 1,000 MG in DEXTROSE 5%-WATER 250 ML IV SCH (12:21)
[2017-12-30] MEDS: PIPERACILLIN SODIUM/TAZOBACTAM 3.375 GM in NORMAL SALINE 100 ML IV SCH ×4 (01:32→18:34)
[2017-12-30] MEDS: VANCOMYCIN HCL 1,000 MG in DEXTROSE 5%-WATER 250 ML IV SCH ×2 (03:00→14:55)
[2017-12-30 05:16] LABS: ABSOLUTE BASOPHILS # (AUTO) 0.1 10^3/uL (0.0-0.2); ABSOLUTE EOSINOPHILS # (AUTO) 0.3 10^3/uL (0.0-0.6); ABSOLUTE LYMPHOCYTES (AUTO) 1.9 10^3/uL (0.5-4.7); ABSOLUTE MONOCYTES (AUTO) 0.8 10^3/uL (0.1-1.4); ABSOLUTE NEUT (AUTO) 7.9 10^3/uL (1.7-8.2); EOSINOPHILS % (AUTO) 2.6 % (0-6); HEMATOCRIT 28.5 % (37.9-51.0); LYMPHOCYTES % (AUTO) 17.4 % (13-45); MEAN CORPUSCULAR HEMOGLOBIN 32.3 pg (27.0-33.4); MEAN CORPUSCULAR HGB CONC 35.2 g/dL (32.0-36.0); MEAN CORPUSCULAR VOLUME 92 fl (80-97); MONOCYTES % (AUTO) 7.6 % (3-13); PLATELET COUNT 414 10^3/uL (150-450); RED BLOOD COUNT 3.11 10^6/uL (4.35-5.55); RED CELL DISTRIBUTION WIDTH 14.4 % (11.5-14.0); SEGMENTED NEUTROPHILS % (AUTO) 71.4 % (42-78); TOTAL CELLS COUNTED % (AUTO) 100 %
[2017-12-30 05:48] LABS: ALANINE AMINOTRANSFERASE 33 U/L (21-72); ALBUMIN 2.4 g/dL (3.5-5.0); ALKALINE PHOSPHATASE 205 U/L (38-126); ASPARTATE AMINO TRANSFERASE 27 U/L (17-59); BILIRUBIN,DIRECT 0.2 mg/dL (0.0-0.4); BILIRUBIN,TOTAL 0.4 mg/dL (0.2-1.3); BLOOD UREA NITROGEN 22 mg/dL (7-20); CALCIUM 8.5 mg/dL (8.4-10.2); CARBON DIOXIDE 33 mmol/L (22-30); CHLORIDE 105 mmol/L (98-107); GLUCOSE 107 mg/dL (75-110); POTASSIUM 3.9 mmol/L (3.6-5.0); SODIUM 142.2 mmol/L (137-145); TOTAL PROTEIN 5.6 g/dL (6.3-8.2)
[2017-12-30 05:52] LABS: ANION GAP 4 (5-19)
[2017-12-30] MEDS: LANSOPRAZOLE 30 MG TAB.RAP.DR PO SCH (05:59)
[2017-12-30] MEDS ORDERED: FOLIC PO SCH (10:00)
[2017-12-30] MEDS ORDERED: PNV CALCIUM PO SCH (10:00)
[2017-12-30] MEDS ORDERED: [UNRECOGNIZED DRUG - OTHER] PO SCH (10:00)
[2017-12-30] MEDS ORDERED: IRON CARB PO SCH (10:00)
[2017-12-30] MEDS: LISINOPRIL 10 MG TABLET PO SCH (10:11)
[2017-12-30] MEDS: PRENATAL VITAMIN W DHA CAPSULE PO SCH (10:11)
[2017-12-30] MEDS: ENOXAPARIN SODIUM INJ 40 MG/0.4 ML DISP.SYRIN SUBCUT SCH (10:11)
[2017-12-30] MEDS: ASPIRIN 81 MG TABLET, ENT COATED PO SCH (10:11)
--- NOTE | 2017-12-30 18:35 | PDOC PROGRESS REPORT ---
Subjective Progress Note for:: 12/30/17 Subjective:: No chest pain or difficulty with breathing. No fever or chills. Left leg swelling and redness improving. No nausea, vomiting or abdominal pain. Reason For Visit: LEFT LEG CELLULITIS; DRUG RASH Physical Exam Vital Signs: Temp Pulse Resp BP Pulse Ox 98.3 F 88 14 156/70 H 99 12/30/17 15:35 12/30/17 15:35 12/30/17 15:35 12/30/17 15:35 12/30/17 15:35 Intake & Output 12/29/17 12/30/17 12/31/17 06:59 06:59 06:59 Intake Total 1958 250 Output Total 1200 Balance 758 250 Weight 103.2 kg 103 kg General appearance: PRESENT: no acute distress, obese Head exam: PRESENT: atraumatic, normocephalic Eye exam: PRESENT: conjunctiva pink, EOMI, PERRLA. ABSENT: scleral icterus Ear exam: PRESENT: normal external ear exam Mouth exam: PRESENT: moist Respiratory exam: PRESENT: clear to auscultation charline Cardiovascular exam: PRESENT: RRR. ABSENT: diastolic murmur, rubs, systolic murmur Vascular exam: ABSENT: pallor GI/Abdominal exam: PRESENT: normal bowel sounds, soft. 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 Musculoskeletal exam: PRESENT: deformity Neurological exam: PRESENT: alert, awake, oriented to person, oriented to place , oriented to time, oriented to situation, CN II-XII grossly intact. ABSENT: motor sensory deficit Psychiatric exam: PRESENT: appropriate affect, normal mood. ABSENT: homicidal ideation, suicidal ideation Skin exam: PRESENT: dry, erythema - improving based on receding level from marker o the left leg., rash - scally on left leg, warm Results Laboratory Results: 12/30/17 04:26 12/30/17 04:26 12/30/17 12/30/17 04:26 04:26 WBC 11.0 H RBC 3.11 L Hgb 10.0 L Hct 28.5 L MCV 92 MCH 32.3 MCHC 35.2 RDW 14.4 H Plt Count 414 Seg Neutrophils % 71.4 Lymphocytes % 17.4 Monocytes % 7.6 Eosinophils % 2.6 Basophils % 1.0 Absolute Neutrophils 7.9 Absolute Lymphocytes 1.9 Absolute Monocytes 0.8 Absolute Eosinophils 0.3 Absolute Basophils 0.1 Sodium 142.2 Potassium 3.9 Chloride 105 Carbon Dioxide 33 H Anion Gap 4 L BUN 22 H Creatinine 1.54 H Est GFR ( Amer) 55 L Est GFR (Non-Af Amer) 45 L Glucose 107 Calcium 8.5 Total Bilirubin 0.4 AST 27 ALT 33 Alkaline Phosphatase 205 H Total Protein 5.6 L Albumin 2.4 L Impressions: Ankle X-Ray 12/28/17 23:49 IMPRESSION: 1. No acute fracture or dislocation. Diffuse edema. 2010 [employer]- All Rights Reserved Foot X-Ray 12/28/17 23:49 IMPRESSION: 1. No acute fracture or dislocation. Diffuse edema. 2010 [employer]- All Rights Reserved Tibia/Fibula X-Ray 12/28/17 23:49 IMPRESSION: 1. No acute fracture or dislocation. Diffuse soft tissue edema. 2010 [employer]- All Rights Reserved Venous Doppler Study 12/29/17 00:00 IMPRESSION: NO EVIDENCE DVT OR SVT IN THE LEFT LEG. Assessment & Plan - Diagnosis (1) Cellulitis of left leg Is this a current diagnosis for this admission?: Yes (2) Drug rash Is this a current diagnosis for this admission?: Yes (3) HTN (hypertension) Qualifiers: Hypertension type: essential hypertension Qualified Code(s): I10 - Essential (primary) hypertension Is this a current diagnosis for this admission?: Yes (4) Personal history of traumatic brain injury Is this a current diagnosis for this admission?: Yes - Time Time Spent with patient: 25-34 minutes Medications reviewed and adjusted accordingly: Yes Within: Other - Inpatient Certification Based on my medical assessment, after consideration of the patient's comorbidities, presenting symptoms, or acuity I expect that the services needed warrant INPATIENT care.: Yes I certify that my determination is in accordance with my understanding of Medicare's requirements for reasonable and necessary INPATIENT services [42 CFR 412.3e].: Yes Medical Necessity: Need Close Monitoring Due to Risk of Patient Decompensation, Need For IV Fluids, Need for IV Antibiotics, Risk of Complication if Not Cared For in Hospital Post Hospital Care: D/C or Transfer Summary - Plan Summary Plan Summary: Continue IV Zosyn and Vancomycin coverage. Follow up on blood culture findings.
[2017-12-31] MEDS: PIPERACILLIN SODIUM/TAZOBACTAM 3.375 GM in NORMAL SALINE 100 ML IV SCH ×4 (00:09→17:26)
[2017-12-31] MEDS: VANCOMYCIN HCL 1,000 MG in DEXTROSE 5%-WATER 250 ML IV SCH ×2 (02:00→13:15)
[2017-12-31] MEDS: LANSOPRAZOLE 30 MG TAB.RAP.DR PO SCH (06:04)
[2017-12-31] MEDS: PRENATAL VITAMIN W DHA CAPSULE PO SCH (09:45)
[2017-12-31] MEDS: LISINOPRIL 10 MG TABLET PO SCH (09:45)
[2017-12-31] MEDS: ASPIRIN 81 MG TABLET, ENT COATED PO SCH (09:45)
[2017-12-31] MEDS: ENOXAPARIN SODIUM INJ 40 MG/0.4 ML DISP.SYRIN SUBCUT SCH (09:45)
[2017-12-31] MEDS: NORMAL SALINE 1000 ML 1,000 ML IV PRN (11:53)
--- NOTE | 2017-12-31 12:20 | Physician Advisory Note ---
Physician Advisor ProgressNote .: Pursuant to the plan for [facility], I have reviewed the medical record for this patient. Physician Advisor Statement: Please consider documenting, if you agree: 1. "JAMES, likely due to ; baseline Cr is ___" 2. Medical necessity: when pt's sx & PE are improving, please make it clear what is still clinically significant requiring hospitalization, so payers can't say "pt was better, so should have gone home now...." (Ex: "Pt better, but I'm still concerned about ", or "Pt's ____ is still far from baseline", ...) Thanks! CK
--- NOTE | 2017-12-31 20:13 | PDOC PROGRESS REPORT ---
Subjective Progress Note for:: 12/31/17 Subjective:: No chest pain or difficulty with breathing. No fever or chills. Left leg swelling and redness improving on current IV antibiotic therapy. No nausea, vomiting or abdominal pain. Reason For Visit: LEFT LEG CELLULITIS; DRUG RASH Physical Exam Vital Signs: Temp Pulse Resp BP Pulse Ox 98.6 F 85 17 146/69 H 98 12/31/17 15:00 12/31/17 15:00 12/31/17 15:00 12/31/17 15:00 12/31/17 15:00 Intake & Output 12/30/17 12/31/17 01/01/18 06:59 06:59 06:59 Intake Total 1958 1700 1170 Output Total 1200 300 Balance 758 1700 870 Weight 103 kg 106.9 kg Physical Exam: General appearance: PRESENT: no acute distress, obese Head exam: PRESENT: atraumatic, normocephalic Eye exam: PRESENT: conjunctiva pink, EOMI, PERRLA. ABSENT: scleral icterus Ear exam: PRESENT: normal external ear exam Mouth exam: PRESENT: moist Respiratory exam: PRESENT: clear to auscultation charline Cardiovascular exam: PRESENT: RRR. ABSENT: diastolic murmur, rubs, systolic murmur Vascular exam: ABSENT: pallor GI/Abdominal exam: PRESENT: normal bowel sounds, soft. 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 Musculoskeletal exam: PRESENT: deformity Neurological exam: PRESENT: alert, awake, oriented to person, oriented to place , oriented to time, oriented to situation, CN II-XII grossly intact. ABSENT: motor sensory deficit Psychiatric exam: PRESENT: appropriate affect, normal mood. ABSENT: homicidal ideation, suicidal ideation Skin exam: PRESENT: dry, erythema - improving based on receding level from marker o the left leg., rash - scaly on left leg, warm Results Laboratory Results: 12/30/17 04:26 12/30/17 04:26 Impressions: Ankle X-Ray 12/28/17 23:49 IMPRESSION: 1. No acute fracture or dislocation. Diffuse edema. 2010 [employer]- All Rights Reserved Foot X-Ray 12/28/17 23:49 IMPRESSION: 1. No acute fracture or dislocation. Diffuse edema. 2010 [employer]- All Rights Reserved Tibia/Fibula X-Ray 12/28/17 23:49 IMPRESSION: 1. No acute fracture or dislocation. Diffuse soft tissue edema. 2010 [employer]- All Rights Reserved Venous Doppler Study 12/29/17 00:00 IMPRESSION: NO EVIDENCE DVT OR SVT IN THE LEFT LEG. Assessment & Plan - Diagnosis (1) Cellulitis of left leg Is this a current diagnosis for this admission?: Yes (2) Drug rash Is this a current diagnosis for this admission?: Yes (3) HTN (hypertension) Qualifiers: Hypertension type: essential hypertension Qualified Code(s): I10 - Essential (primary) hypertension Is this a current diagnosis for this admission?: Yes (4) Personal history of traumatic brain injury Is this a current diagnosis for this admission?: Yes - Time Time Spent with patient: 25-34 minutes Medications reviewed and adjusted accordingly: Yes Anticipated discharge: SNF Within: Other - Inpatient Certification Based on my medical assessment, after consideration of the patient's comorbidities, presenting symptoms, or acuity I expect that the services needed warrant INPATIENT care.: Yes I certify that my determination is in accordance with my understanding of Medicare's requirements for reasonable and necessary INPATIENT services [42 CFR 412.3e].: Yes Medical Necessity: Need Close Monitoring Due to Risk of Patient Decompensation, Need For IV Fluids, Need for IV Antibiotics, Risk of Complication if Not Cared For in Hospital Post Hospital Care: D/C or Transfer Summary - Plan Summary Plan Summary: Continue IV Zosyn and adjusted Vancomycin dosing coverage. Eucerin cream topically to left leg scaly rash. Maintain on all other current medication management. Follow up on blood culture findings. Obtain CBC with diff and CMP in AM.
[2018-01-01] MEDS: MINERAL OIL/PETROLATUM,WHITE CREAM 114 GM TP SCH ×3 (00:14→21:32)
[2018-01-01] MEDS: PIPERACILLIN SODIUM/TAZOBACTAM 3.375 GM in NORMAL SALINE 100 ML IV SCH ×4 (00:16→18:06)
[2018-01-01 05:22] LABS: ABSOLUTE BASOPHILS # (AUTO) 0.1 10^3/uL (0.0-0.2); ABSOLUTE EOSINOPHILS # (AUTO) 0.3 10^3/uL (0.0-0.6); ABSOLUTE LYMPHOCYTES (AUTO) 1.8 10^3/uL (0.5-4.7); ABSOLUTE MONOCYTES (AUTO) 0.8 10^3/uL (0.1-1.4); ABSOLUTE NEUT (AUTO) 6.4 10^3/uL (1.7-8.2); BASOPHILS % (AUTO) 1.1 % (0-2); EOSINOPHILS % (AUTO) 3.5 % (0-6); HEMATOCRIT 27.9 % (37.9-51.0); HEMOGLOBIN 9.6 g/dL (13.5-17.0); LYMPHOCYTES % (AUTO) 19.1 % (13-45); MEAN CORPUSCULAR HGB CONC 34.5 g/dL (32.0-36.0); MEAN CORPUSCULAR VOLUME 93 fl (80-97); MONOCYTES % (AUTO) 8.2 % (3-13); PLATELET COUNT 339 10^3/uL (150-450); RED BLOOD COUNT 3.01 10^6/uL (4.35-5.55); RED CELL DISTRIBUTION WIDTH 14.1 % (11.5-14.0); SEGMENTED NEUTROPHILS % (AUTO) 68.1 % (42-78); TOTAL CELLS COUNTED % (AUTO) 100 %; WHITE BLOOD COUNT 9.3 10^3/uL (4.0-10.5)
[2018-01-01 05:54] LABS: ALANINE AMINOTRANSFERASE 31 U/L (21-72); ALBUMIN 2.5 g/dL (3.5-5.0); ALKALINE PHOSPHATASE 280 U/L (38-126); ANION GAP 6 (5-19); ASPARTATE AMINO TRANSFERASE 29 U/L (17-59); BILIRUBIN,DIRECT 0.2 mg/dL (0.0-0.4); BILIRUBIN,TOTAL 0.4 mg/dL (0.2-1.3); BLOOD UREA NITROGEN 17 mg/dL (7-20); CALCIUM 8.8 mg/dL (8.4-10.2); CARBON DIOXIDE 31 mmol/L (22-30); CHLORIDE 104 mmol/L (98-107); GLUCOSE 93 mg/dL (75-110); POTASSIUM 3.8 mmol/L (3.6-5.0); SODIUM 141.1 mmol/L (137-145); TOTAL PROTEIN 5.8 g/dL (6.3-8.2)
[2018-01-01] MEDS: LANSOPRAZOLE 30 MG TAB.RAP.DR PO SCH (06:26)
[2018-01-01] MEDS: ASPIRIN 81 MG TABLET, ENT COATED PO SCH (09:34)
[2018-01-01] MEDS: LISINOPRIL 10 MG TABLET PO SCH (09:35)
[2018-01-01] MEDS: ENOXAPARIN SODIUM INJ 40 MG/0.4 ML DISP.SYRIN SUBCUT SCH (09:35)
[2018-01-01] MEDS: PRENATAL VITAMIN W DHA CAPSULE PO SCH (09:35)
--- NOTE | 2018-01-01 16:01 | PDOC PROGRESS REPORT ---
Subjective Progress Note for:: 01/01/18 Subjective:: Patient denied chest pain or difficulty with breathing. No fever or chills. Remain on current IV antibiotic therapy for significant left leg cellulitis with outpatient oral antibiotic therapy that required continue hospitalization. There has been some difficulty with venous access and patient may eventually need PICC or central line for antibiotic administration. No nausea, vomiting or abdominal pain. Reason For Visit: LEFT LEG CELLULITIS; DRUG RASH Physical Exam Vital Signs: Temp Pulse Resp BP Pulse Ox 98.6 F 88 17 167/87 H 98 01/01/18 15:35 01/01/18 15:35 01/01/18 15:35 01/01/18 15:35 01/01/18 15:35 Intake & Output 12/31/17 01/01/18 01/02/18 06:59 06:59 06:59 Intake Total 1700 1492 1100 Output Total 650 Balance 8871 488 1721 Weight 106.9 kg 106.3 kg Physical Exam: General appearance: PRESENT: no acute distress, obese Head exam: PRESENT: atraumatic, normocephalic Eye exam: PRESENT: conjunctiva pink, EOMI, PERRLA. ABSENT: scleral icterus Ear exam: PRESENT: normal external ear exam Mouth exam: PRESENT: moist Respiratory exam: PRESENT: clear to auscultation charline Cardiovascular exam: PRESENT: RRR. ABSENT: diastolic murmur, rubs, systolic murmur Vascular exam: ABSENT: pallor GI/Abdominal exam: PRESENT: normal bowel sounds, soft. 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 Musculoskeletal exam: PRESENT: deformity Neurological exam: PRESENT: alert, awake, oriented to person, oriented to place , oriented to time, oriented to situation, CN II-XII grossly intact. ABSENT: motor sensory deficit Psychiatric exam: PRESENT: appropriate affect, normal mood. ABSENT: homicidal ideation, suicidal ideation Skin exam: PRESENT: dry, erythema - improving, based on receding level from marker o the left leg., rash - scaly on left leg, warm Results Laboratory Results: 01/01/18 05:10 01/01/18 05:10 01/01/18 01/01/18 05:10 05:10 WBC 9.3 RBC 3.01 L Hgb 9.6 L Hct 27.9 L MCV 93 MCH 32.0 MCHC 34.5 RDW 14.1 H Plt Count 339 Seg Neutrophils % 68.1 Lymphocytes % 19.1 Monocytes % 8.2 Eosinophils % 3.5 Basophils % 1.1 Absolute Neutrophils 6.4 Absolute Lymphocytes 1.8 Absolute Monocytes 0.8 Absolute Eosinophils 0.3 Absolute Basophils 0.1 Sodium 141.1 Potassium 3.8 Chloride 104 Carbon Dioxide 31 H Anion Gap 6 BUN 17 Creatinine 1.64 H Est GFR ( Amer) 51 L Est GFR (Non-Af Amer) 42 L Glucose 93 Calcium 8.8 Total Bilirubin 0.4 AST 29 ALT 31 Alkaline Phosphatase 280 H Total Protein 5.8 L Albumin 2.5 L Impressions: Ankle X-Ray 12/28/17 23:49 IMPRESSION: 1. No acute fracture or dislocation. Diffuse edema. 2010 [employer]- All Rights Reserved Foot X-Ray 12/28/17 23:49 IMPRESSION: 1. No acute fracture or dislocation. Diffuse edema. 2010 [employer]- All Rights Reserved Tibia/Fibula X-Ray 12/28/17 23:49 IMPRESSION: 1. No acute fracture or dislocation. Diffuse soft tissue edema. 2010 [employer]- All Rights Reserved Venous Doppler Study 12/29/17 00:00 IMPRESSION: NO EVIDENCE DVT OR SVT IN THE LEFT LEG. Assessment & Plan - Diagnosis (1) Cellulitis of left leg Is this a current diagnosis for this admission?: Yes (2) Drug rash Is this a current diagnosis for this admission?: Yes (3) HTN (hypertension) Qualifiers: Hypertension type: essential hypertension Qualified Code(s): I10 - Essential (primary) hypertension Is this a current diagnosis for this admission?: Yes (4) Personal history of traumatic brain injury Is this a current diagnosis for this admission?: Yes - Time Time Spent with patient: 25-34 minutes Medications reviewed and adjusted accordingly: Yes Anticipated discharge: SNF Within: Other - Inpatient Certification Based on my medical assessment, after consideration of the patient's comorbidities, presenting symptoms, or acuity I expect that the services needed warrant INPATIENT care.: Yes I certify that my determination is in accordance with my understanding of Medicare's requirements for reasonable and necessary INPATIENT services [42 CFR 412.3e].: Yes Medical Necessity: Need Close Monitoring Due to Risk of Patient Decompensation, Need For IV Fluids, Need for IV Antibiotics, Risk of Complication if Not Cared For in Hospital, Risk of Diagnosis Which Will Require Inpatient Eval/Care/ Monitoring 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 Monitor renal indices and follow up on blood culture findings.
[2018-01-01] MEDS: VANCOMYCIN HCL 1,500 MG in DEXTROSE 5%-WATER 250 ML IV SCH (16:46)
[2018-01-02] MEDS: PIPERACILLIN SODIUM/TAZOBACTAM 3.375 GM in NORMAL SALINE 100 ML IV SCH ×4 (00:03→18:00)
[2018-01-02] MEDS: LANSOPRAZOLE 30 MG TAB.RAP.DR PO SCH (05:35)
[2018-01-02] MEDS: LISINOPRIL 10 MG TABLET PO SCH (10:27)
[2018-01-02] MEDS: ASPIRIN 81 MG TABLET, ENT COATED PO SCH ×2 (10:27→10:49)
[2018-01-02] MEDS: PRENATAL VITAMIN W DHA CAPSULE PO SCH (10:27)
[2018-01-02] MEDS: MINERAL OIL/PETROLATUM,WHITE CREAM 114 GM TP SCH (10:28)
--- NOTE | 2018-01-02 11:18 | PDOC PROGRESS REPORT ---
Subjective Progress Note for:: 01/02/18 Subjective:: Patient was admitted for the left leg cellulitis Patient is currently on IV antibiotic Patient's denied any chest pain denied any shortness of the breath Today's patients noticed some blood in the urine but denied any difficulty in urinations Reason For Visit: LEFT LEG CELLULITIS; DRUG RASH Physical Exam Vital Signs: Temp Pulse Resp BP Pulse Ox 98.4 F 90 18 155/76 H 90 L 01/02/18 07:35 01/02/18 07:35 01/02/18 07:35 01/02/18 07:35 01/02/18 07:35 Intake & Output 01/01/18 01/02/18 01/03/18 06:59 06:59 06:59 Intake Total 1492 2643 100 Output Total 650 1325 Balance 842 1318 100 Weight 106.3 kg 108.9 kg General appearance: PRESENT: no acute distress, well-developed, well-nourished Head exam: PRESENT: atraumatic, normocephalic Eye exam: PRESENT: conjunctiva pink, EOMI, PERRLA. ABSENT: scleral icterus Ear exam: PRESENT: normal external ear exam Mouth exam: PRESENT: moist, tongue midline Neck exam: PRESENT: full ROM. ABSENT: carotid bruit, JVD, lymphadenopathy, thyromegaly Respiratory exam: PRESENT: clear to auscultation charline Cardiovascular exam: PRESENT: RRR. ABSENT: diastolic murmur, rubs, systolic murmur Pulses: PRESENT: normal dorsalis pedis pul, +2 pedal pulses bilateral Vascular exam: PRESENT: normal capillary refill GI/Abdominal exam: PRESENT: normal bowel sounds, soft. ABSENT: distended, guarding, mass, organolmegaly, rebound, tenderness Rectal exam: PRESENT: deferred Additional comments: Left leg redness is present But decreased from the marked site Neurological exam: PRESENT: alert, awake, oriented to person, oriented to place , oriented to time, oriented to situation, CN II-XII grossly intact. ABSENT: motor sensory deficit Psychiatric exam: PRESENT: appropriate affect, normal mood. ABSENT: homicidal ideation, suicidal ideation Skin exam: PRESENT: dry, intact, warm. ABSENT: cyanosis, rash Results Laboratory Results: 01/01/18 05:10 01/01/18 05:10 Impressions: Ankle X-Ray 12/28/17 23:49 IMPRESSION: 1. No acute fracture or dislocation. Diffuse edema. 2010 [employer]- All Rights Reserved Foot X-Ray 12/28/17 23:49 IMPRESSION: 1. No acute fracture or dislocation. Diffuse edema. 2010 [employer]- All Rights Reserved Tibia/Fibula X-Ray 12/28/17 23:49 IMPRESSION: 1. No acute fracture or dislocation. Diffuse soft tissue edema. 2010 [employer]- All Rights Reserved Venous Doppler Study 12/29/17 00:00 IMPRESSION: NO EVIDENCE DVT OR SVT IN THE LEFT LEG. Assessment & Plan - Diagnosis (1) Hematuria Is this a current diagnosis for this admission?: Yes Plan: Will check the urine and culture Currently hold the Lovenox Start the patient on the Flomax If the patient's continues to issue need to put the Stauffer catheter No urology available in the hospital (2) Cellulitis of left leg Is this a current diagnosis for this admission?: Yes Plan: Continues to IV antibiotic (3) Drug rash Is this a current diagnosis for this admission?: Yes (4) HTN (hypertension) Qualifiers: Hypertension type: essential hypertension Qualified Code(s): I10 - Essential (primary) hypertension Is this a current diagnosis for this admission?: Yes (5) Personal history of traumatic brain injury Is this a current diagnosis for this admission?: Yes - Time Time Spent with patient: 15-24 minutes Medications reviewed and adjusted accordingly: Yes Anticipated discharge: Other Within: Other - Inpatient Certification Medical Necessity: Need for IV Antibiotics 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
[2018-01-02] MEDS: VANCOMYCIN HCL 1,500 MG in DEXTROSE 5%-WATER 250 ML IV SCH (14:04)
[2018-01-02] MEDS: TAMSULOSIN HCL 0.4 MG CAP.SR.24H PO SCH (18:00)
[2018-01-03] MEDS: MINERAL OIL/PETROLATUM,WHITE CREAM 114 GM TP SCH ×3 (02:22→23:53)
[2018-01-03] MEDS: PIPERACILLIN SODIUM/TAZOBACTAM 3.375 GM in NORMAL SALINE 100 ML IV SCH ×5 (02:23→23:51)
[2018-01-03 05:43] LABS: HEMATOCRIT 27.3 % (37.9-51.0); HEMOGLOBIN 9.5 g/dL (13.5-17.0); MEAN CORPUSCULAR HEMOGLOBIN 32.2 pg (27.0-33.4); MEAN CORPUSCULAR HGB CONC 34.8 g/dL (32.0-36.0); MEAN CORPUSCULAR VOLUME 93 fl (80-97); PLATELET COUNT 304 10^3/uL (150-450); RED BLOOD COUNT 2.95 10^6/uL (4.35-5.55); RED CELL DISTRIBUTION WIDTH 13.9 % (11.5-14.0)
[2018-01-03 05:59] LABS: ANION GAP 5 (5-19); BLOOD UREA NITROGEN 19 mg/dL (7-20); CALCIUM 8.5 mg/dL (8.4-10.2); CARBON DIOXIDE 30 mmol/L (22-30); CHLORIDE 106 mmol/L (98-107); GLUCOSE 94 mg/dL (75-110); POTASSIUM 4.2 mmol/L (3.6-5.0); SODIUM 141.2 mmol/L (137-145)
[2018-01-03] MEDS: LANSOPRAZOLE 30 MG TAB.RAP.DR PO SCH (06:04)
[2018-01-03 06:07] LABS: ABSOLUTE LYMPHOCYTES# (MANUAL) 1.3 10^3/uL (0.5-4.7); ABSOLUTE MONOCYTES # (MANUAL) 0.4 10^3/uL (0.1-1.4); ABSOLUTE NEUTROPHILS# (MANUAL) 7.2 10^3/uL (1.7-8.2); BASOPHILS % (MANUAL) 0 % (0-2); EOSINOPHILS % (MANUAL) 2 % (0-6); LYMPHOCYTES % (MANUAL) 14 % (13-45); MONOCYTES % (MANUAL) 4 % (3-13); RBC MORPHOLOGY COMMENT NORMO-CYTIC/CHROMIC; SEGMENTED NEUTROPHILS % (MAN) 80 % (42-78); TOTAL CELLS COUNTED 100
[2018-01-03 06:08] LABS: PLATELET COMMENT ADEQUATE
[2018-01-03 06:38] LABS: VANCOMYCIN,TROUGH 23.3 ug/mL (5.0-20.0)
[2018-01-03] MEDS: ASPIRIN 81 MG TABLET, ENT COATED PO SCH (10:24)
[2018-01-03] MEDS: PRENATAL VITAMIN W DHA CAPSULE PO SCH (10:24)
[2018-01-03] MEDS: LISINOPRIL 10 MG TABLET PO SCH (10:24)
--- NOTE | 2018-01-03 11:05 | PDOC PROGRESS REPORT ---
Subjective Progress Note for:: 01/03/18 Subjective:: . Patient is currently doing much better after put the Stauffer catheter patient hematuria is pretty much all resolved Patient's denied any chest pain denied any shortness of breath Reason For Visit: LEFT LEG CELLULITIS; DRUG RASH Physical Exam Vital Signs: Temp Pulse Resp BP Pulse Ox 98.1 F 85 18 179/85 H 93 01/03/18 07:28 01/03/18 07:28 01/03/18 07:28 01/03/18 07:28 01/03/18 07:28 Intake & Output 01/02/18 01/03/18 01/04/18 06:59 06:59 06:59 Intake Total 2643 2170 Output Total 1325 2125 Balance 1318 45 Weight 108.9 kg 108.1 kg General appearance: PRESENT: no acute distress, well-developed, well-nourished Head exam: PRESENT: atraumatic, normocephalic Eye exam: PRESENT: conjunctiva pink, EOMI, PERRLA. ABSENT: scleral icterus Ear exam: PRESENT: normal external ear exam Mouth exam: PRESENT: moist, tongue midline Neck exam: PRESENT: full ROM. ABSENT: carotid bruit, JVD, lymphadenopathy, thyromegaly Respiratory exam: PRESENT: clear to auscultation charline Cardiovascular exam: PRESENT: RRR. ABSENT: diastolic murmur, rubs, systolic murmur Pulses: PRESENT: normal dorsalis pedis pul, +2 pedal pulses bilateral Vascular exam: PRESENT: normal capillary refill GI/Abdominal exam: PRESENT: normal bowel sounds, soft. ABSENT: distended, guarding, mass, organolmegaly, rebound, tenderness Rectal exam: PRESENT: deferred Extremities exam: ABSENT: pedal edema Neurological exam: PRESENT: alert, awake, oriented to person. ABSENT: motor sensory deficit Psychiatric exam: PRESENT: appropriate affect, normal mood. ABSENT: homicidal ideation, suicidal ideation Skin exam: PRESENT: dry, intact, warm. ABSENT: cyanosis, rash Results Laboratory Results: 01/03/18 05:17 01/03/18 05:17 01/03/18 01/03/18 05:17 05:17 WBC 9.0 RBC 2.95 L Hgb 9.5 L Hct 27.3 L MCV 93 MCH 32.2 MCHC 34.8 RDW 13.9 Plt Count 304 Seg Neutrophils % Not Reportable Lymphocytes % Not Reportable Monocytes % Not Reportable Eosinophils % Not Reportable Basophils % Not Reportable Absolute Neutrophils Not Reportable Absolute Lymphocytes Not Reportable Absolute Monocytes Not Reportable Absolute Eosinophils Not Reportable Absolute Basophils Not Reportable Sodium 141.2 Potassium 4.2 Chloride 106 Carbon Dioxide 30 Anion Gap 5 BUN 19 Creatinine 1.52 H Est GFR ( Amer) 56 L Est GFR (Non-Af Amer) 46 L Glucose 94 Calcium 8.5 Impressions: Ankle X-Ray 12/28/17 23:49 IMPRESSION: 1. No acute fracture or dislocation. Diffuse edema. 2010 [employer]- All Rights Reserved Foot X-Ray 12/28/17 23:49 IMPRESSION: 1. No acute fracture or dislocation. Diffuse edema. 2010 [employer]- All Rights Reserved Tibia/Fibula X-Ray 12/28/17 23:49 IMPRESSION: 1. No acute fracture or dislocation. Diffuse soft tissue edema. 2010 [employer]- All Rights Reserved Venous Doppler Study 12/29/17 00:00 IMPRESSION: NO EVIDENCE DVT OR SVT IN THE LEFT LEG. Assessment & Plan - Diagnosis (1) Hematuria Is this a current diagnosis for this admission?: Yes Plan: Status post Stauffer catheter currently on Flomax no more hematuria (2) Cellulitis of left leg Is this a current diagnosis for this admission?: Yes Plan: Continues to IV antibiotic (3) Drug rash Is this a current diagnosis for this admission?: Yes (4) HTN (hypertension) Qualifiers: Hypertension type: essential hypertension Qualified Code(s): I10 - Essential (primary) hypertension Is this a current diagnosis for this admission?: Yes (5) Personal history of traumatic brain injury Is this a current diagnosis for this admission?: Yes - Time Time Spent with patient: 15-24 minutes Medications reviewed and adjusted accordingly: Yes Anticipated discharge: Other Within: Other - Inpatient Certification Based on my medical assessment, after consideration of the patient's comorbidities, presenting symptoms, or acuity I expect that the services needed warrant INPATIENT care.: Yes I certify that my determination is in accordance with my understanding of Medicare's requirements for reasonable and necessary INPATIENT services [42 CFR 412.3e].: Yes Medical Necessity: Need Close Monitoring Due to Risk of Patient Decompensation 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
[2018-01-03] MEDS: NORMAL SALINE 1000 ML 1,000 ML IV PRN (12:28)
--- NOTE | 2018-01-03 14:02 | RADIOLOGY REPORT (SQ) ---
EXAM DESCRIPTION: CT ABD/PELVIS NO ORAL OR IV COMPLETED DATE/TIME: 01/03/2018 12:04 pm REASON FOR STUDY: hematuria COMPARISON: Chest radiograph 12/15/2017 TECHNIQUE: CT scan of the abdomen and pelvis performed without intravenous or oral contrast. Images reviewed with lung, soft tissue, and bone windows. Reconstructed coronal and sagittal MPR images revi ewed. All images stored on PACS. All CT scanners at this facility use dose modulation, iterative reconstruction, and/or weight based d osing when appropriate to reduce radiation dose to as low as reasonably achievable (ALARA). [facility]: Dose Right [facility]: CareDose [facility]: Dose Right [facility]: Teradose 4D [facility]: Smart GeeYee RADIATION DOSE: CT Rad equipment meets quality standard of care and radiation dose reduction techniq ues were employed. CTDIvol: 26.9 mGy. DLP: 1517 mGy-cm.mGy. LIMITATIONS: None. FINDINGS: LOWER CHEST: Small bilateral pleural effusions with focal, dense consolidation of the left more so than right lower lobes. Small pericardial effusion. NON-CONTRASTED LIVER, SPLEEN, ADRENALS: Evaluation limited by lack of IV contrast. No identified sign ificant masses. PANCREAS: No masses. No peripancreatic inflammatory changes. GALLBLADDER: No identified stones by CT criteria. No inflammatory changes to suggest cholecystitis. RIGHT KIDNEY AND URETER: No suspicious masses. Assessment limited by lack of IV contrast. No signif icant calcifications. No hydronephrosis or hydroureter. LEFT KIDNEY AND URETER: No suspicious masses. Assessment limited by lack of IV contrast. No signifi cant calcifications. No hydronephrosis or hydroureter. AORTA AND RETROPERITONEUM: No aneurysm. No retroperitoneal masses or adenopathy. BOWEL AND PERITONEAL CAVITY: No obvious masses or inflammatory changes. No free fluid. APPENDIX: Normal. PELVIS, BLADDER, AND ABDOMINAL WALL:No abnormal masses. No free fluid. The bladder is decompressed w ith a Stauffer catheter in place. Small fat containing inguinal hernias are present. BONES: Multilevel spondylotic changes are present. OTHER: No other significant finding. IMPRESSION: 1. No evidence of urolithiasis or obstructive uropathy. Stauffer bladder catheter is in p lace. 2. Bibasilar pulmonary consolidations with small bilateral pleural effusions. Small pericardial eff usion. COMMENT: Quality ID # [id number]: Final reports with documentation of one or more dose reduction techniques (e.g., Automated exposure control, adjustment of the mA and/or kV according to patient size, use of iterative reconstruction technique) TECHNICAL DOCUMENTATION: JOB ID: [id number] [employer]- All Rights Reserved Reading location - IP/workstation name: [email or web address]
[2018-01-03] MEDS: VANCOMYCIN HCL 1,500 MG in DEXTROSE 5%-WATER 250 ML IV SCH ×2 (14:52→15:57)
[2018-01-03 15:46] LABS: VANCOMYCIN,TROUGH 18.9 ug/mL (5.0-20.0)
[2018-01-03] MEDS: TAMSULOSIN HCL 0.4 MG CAP.SR.24H PO SCH (18:12)
[2018-01-04] MEDS: PIPERACILLIN SODIUM/TAZOBACTAM 3.375 GM in NORMAL SALINE 100 ML IV SCH ×3 (05:35→17:51)
[2018-01-04] MEDS: LANSOPRAZOLE 30 MG TAB.RAP.DR PO SCH (05:36)
[2018-01-04 07:38] LABS: ANION GAP 7 (5-19); BLOOD UREA NITROGEN 19 mg/dL (7-20); CALCIUM 8.9 mg/dL (8.4-10.2); CARBON DIOXIDE 28 mmol/L (22-30); CHLORIDE 104 mmol/L (98-107); GLUCOSE 88 mg/dL (75-110); POTASSIUM 4.5 mmol/L (3.6-5.0)
--- NOTE | 2018-01-04 08:34 | PDOC PROGRESS REPORT ---
Subjective Progress Note for:: 01/04/18 Subjective:: Patient denied chest pain or difficulty with breathing. No fever or chills. No nausea, vomiting or abdominal pain. Remain on IV antibiotic therapy. Reason For Visit: LEFT LEG CELLULITIS; DRUG RASH Physical Exam Vital Signs: Temp Pulse Resp BP Pulse Ox 98.5 F 82 24 H 168/71 H 96 01/04/18 07:46 01/04/18 07:46 01/04/18 07:46 01/04/18 07:46 01/04/18 07:46 Intake & Output 01/03/18 01/04/18 01/05/18 06:59 06:59 06:59 Intake Total 2170 1226 Output Total 2125 2125 Balance 45 -899 Weight 108.1 kg 108.6 kg Physical Exam: General appearance: PRESENT: no acute distress, obese Head exam: PRESENT: atraumatic, normocephalic Eye exam: PRESENT: conjunctiva pink, EOMI, PERRLA. ABSENT: scleral icterus Ear exam: PRESENT: normal external ear exam Mouth exam: PRESENT: moist Respiratory exam: PRESENT: clear to auscultation charline Cardiovascular exam: PRESENT: RRR. ABSENT: diastolic murmur, rubs, systolic murmur Vascular exam: ABSENT: pallor GI/Abdominal exam: PRESENT: normal bowel sounds, soft. 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 Musculoskeletal exam: PRESENT: deformity Neurological exam: PRESENT: alert, awake, oriented to person, oriented to place , oriented to time, oriented to situation, CN II-XII grossly intact. ABSENT: motor sensory deficit Psychiatric exam: PRESENT: appropriate affect, normal mood. ABSENT: homicidal ideation, suicidal ideation Skin exam: PRESENT: dry, erythema - improving left leg erythema and scaly rash on left leg. Results Laboratory Results: 01/03/18 05:17 01/04/18 06:14 01/04/18 06:14 Sodium 139.0 Potassium 4.5 Chloride 104 Carbon Dioxide 28 Anion Gap 7 BUN 19 Creatinine 1.63 H Est GFR ( Amer) 51 L Est GFR (Non-Af Amer) 42 L Glucose 88 Calcium 8.9 Impressions: Ankle X-Ray 12/28/17 23:49 IMPRESSION: 1. No acute fracture or dislocation. Diffuse edema. 2010 [employer]- All Rights Reserved Foot X-Ray 12/28/17 23:49 IMPRESSION: 1. No acute fracture or dislocation. Diffuse edema. 2010 [employer]- All Rights Reserved Tibia/Fibula X-Ray 12/28/17 23:49 IMPRESSION: 1. No acute fracture or dislocation. Diffuse soft tissue edema. 2010 [employer]- All Rights Reserved Venous Doppler Study 12/29/17 00:00 IMPRESSION: NO EVIDENCE DVT OR SVT IN THE LEFT LEG. Abdomen/Pelvis CT 01/03/18 00:00 IMPRESSION: 1. No evidence of urolithiasis or obstructive uropathy. Stauffer bladder catheter is in place. 2. Bibasilar pulmonary consolidations with small bilateral pleural effusions. Small pericardial effusion. Assessment & Plan - Diagnosis (1) Cellulitis of left leg Is this a current diagnosis for this admission?: Yes Plan: Continue current antibiotic therapy. Day #6. Patient was discharged to SNF on oral antibiotic during his initial admission. (2) Drug rash Is this a current diagnosis for this admission?: Yes Plan: Improved with current topical treatment with Eucerin cream. (3) HTN (hypertension) Qualifiers: Hypertension type: essential hypertension Qualified Code(s): I10 - Essential (primary) hypertension Is this a current diagnosis for this admission?: Yes Plan: Continue current medication management. (4) Personal history of traumatic brain injury Is this a current diagnosis for this admission?: Yes Plan: Continue current medication management. - Time Time Spent with patient: 25-34 minutes Medications reviewed and adjusted accordingly: Yes Anticipated discharge: SNF Within: Other - Inpatient Certification Based on my medical assessment, after consideration of the patient's comorbidities, presenting symptoms, or acuity I expect that the services needed warrant INPATIENT care.: Yes I certify that my determination is in accordance with my understanding of Medicare's requirements for reasonable and necessary INPATIENT services [42 CFR 412.3e].: Yes Medical Necessity: Need Close Monitoring Due to Risk of Patient Decompensation, Need For IV Fluids, Need For Continuous Telemetry Monitoring, Need for IV Antibiotics, Risk of Diagnosis Which Will Require Inpatient Eval/Care/Monitoring Post Hospital Care: D/C or Transfer Summary - Plan Summary Plan Summary: Continue current medication management.
[2018-01-04] MEDS: ASPIRIN 81 MG TABLET, ENT COATED PO SCH (09:07)
[2018-01-04] MEDS: LISINOPRIL 10 MG TABLET PO SCH (09:08)
[2018-01-04] MEDS: MINERAL OIL/PETROLATUM,WHITE CREAM 114 GM TP SCH (09:08)
[2018-01-04] MEDS: PRENATAL VITAMIN W DHA CAPSULE PO SCH (09:08)
[2018-01-04] MEDS: VANCOMYCIN HCL 1,500 MG in DEXTROSE 5%-WATER 250 ML IV SCH (14:33)
[2018-01-04] MEDS: NORMAL SALINE 1000 ML 1,000 ML IV PRN (14:33)
--- NOTE | 2018-01-04 15:47 | Progress Note ---
Provider Note Provider Note: ID Consult Note Asked to review patient's chart by Pharmacy. Pt not seen or examined. Reviewed labs, VS, notes, imaging reports. Mr Johnson is a 67 year old man transferred from [facility] for rash over L leg and worsening redness with pain overnight between 12/28 and 12/29/17. Pt had been prescribed doxycycline prior to hospitalization and was suspected of having a generalized drug rash related to doxycycline. Pt's exam on admission was noted to have erythema diffusely and swelling with increased warmth to touch of the left leg. On presentation the patient had no fever, and he has remained afebrile since. Labs were notable for leukocytosis with WBC count 15.1k on presentation with mild reactive thrombocytosis, both of which have since normalized. Blood cx drawn on admission have been negative. Empirically the patient had been given vancomycin IV and Zosyn IV for treatment of LLE cellulitis. Today is day 7 of both. Impression/Recommendations - The patient appears to have nonpurulent cellulitis (no subcutaneous abscess, furuncle or carbuncles) per description of the cellulitis from provider notes. For nonpurulent cellulitis, beta haemolytic Streptococci are the most likely pathogens, and treatment with IV Ancef or PO Keflex would be appropriate. - For skin/soft tissue infections, duration of therapy can range from 5-14 days , depending on the severity of the infection and response to therapy. Pt is on day 7 presently. If the patient has already responded appropriately and local inflammation has essentially resolved, there may not be a need to continue any further. Otherwise, if there is still evidence of cellulitis, recommend de- escalating from IV Zosyn and vancomycin to PO Keflex for a few more days. - Efforts to reduce any edema in the involved leg are, of course, important in reducing risk for recurrences and aiding in resolution of the current episode of cellulitis if it has not already resolved. If there is any evidence of interdigital maceration or fissuring between the toes c/w Athlete's foot, treatment of this may also reduce risk for recurrences. Kj Rodriguez MD [facility] Infectious Diseases pager [phone]
[2018-01-04] MEDS: TAMSULOSIN HCL 0.4 MG CAP.SR.24H PO SCH (17:51)
[2018-01-05] MEDS: PIPERACILLIN SODIUM/TAZOBACTAM 3.375 GM in NORMAL SALINE 100 ML IV SCH ×2 (00:52→05:33)
[2018-01-05] MEDS: MINERAL OIL/PETROLATUM,WHITE CREAM 114 GM TP SCH ×3 (00:52→22:01)
[2018-01-05] MEDS: LANSOPRAZOLE 30 MG TAB.RAP.DR PO SCH (05:33)
[2018-01-05 06:57] LABS: ANION GAP 7 (5-19); BLOOD UREA NITROGEN 16 mg/dL (7-20); CALCIUM 8.7 mg/dL (8.4-10.2); CARBON DIOXIDE 28 mmol/L (22-30); CHLORIDE 105 mmol/L (98-107); GLUCOSE 94 mg/dL (75-110); SODIUM 140.2 mmol/L (137-145)
[2018-01-05] MEDS: PRENATAL VITAMIN W DHA CAPSULE PO SCH (09:14)
[2018-01-05] MEDS: ASPIRIN 81 MG TABLET, ENT COATED PO SCH (09:14)
[2018-01-05] MEDS: LISINOPRIL 10 MG TABLET PO SCH (09:14)
[2018-01-05] MEDS: VANCOMYCIN HCL 1,500 MG in DEXTROSE 5%-WATER 250 ML IV SCH (14:12)
[2018-01-05 14:28] LABS: VANCOMYCIN,TROUGH 21.5 ug/mL (5.0-20.0)
[2018-01-05] MEDS: TAMSULOSIN HCL 0.4 MG CAP.SR.24H PO SCH (17:07)
--- NOTE | 2018-01-05 18:58 | PDOC PROGRESS REPORT ---
Subjective Progress Note for:: 01/05/18 Subjective:: No chest pain or difficulty with breathing. No fever or chills. No nausea, vomiting or abdominal pain. Remain on IV antibiotic therapy. Reason For Visit: LEFT LEG CELLULITIS; DRUG RASH Physical Exam Vital Signs: Temp Pulse Resp BP Pulse Ox 98.1 F 81 18 165/84 H 100 01/05/18 16:00 01/05/18 16:00 01/05/18 16:00 01/05/18 16:00 01/05/18 16:00 Intake & Output 01/04/18 01/05/18 01/06/18 06:59 06:59 06:59 Intake Total 1226 3104 2290 Output Total 2125 4550 1800 Balance -899 -1446 490 Weight 108.6 kg 116.1 kg Physical Exam: General appearance: PRESENT: no acute distress, obese Head exam: PRESENT: atraumatic, normocephalic Eye exam: PRESENT: conjunctiva pink, EOMI, PERRLA. ABSENT: scleral icterus Ear exam: PRESENT: normal external ear exam Mouth exam: PRESENT: moist Respiratory exam: PRESENT: clear to auscultation charline Cardiovascular exam: PRESENT: RRR. ABSENT: diastolic murmur, rubs, systolic murmur Vascular exam: ABSENT: pallor GI/Abdominal exam: PRESENT: normal bowel sounds, soft. 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 Musculoskeletal exam: PRESENT: deformity Neurological exam: PRESENT: alert, awake, oriented to person, oriented to place , oriented to time, oriented to situation, CN II-XII grossly intact. ABSENT: motor sensory deficit Psychiatric exam: PRESENT: appropriate affect, normal mood. ABSENT: homicidal ideation, suicidal ideation Skin exam: PRESENT: dry, erythema - improving left leg erythema and scaly rash on left leg. Results Laboratory Results: 01/03/18 05:17 01/05/18 06:17 01/05/18 06:17 Sodium 140.2 Potassium 4.0 Chloride 105 Carbon Dioxide 28 Anion Gap 7 BUN 16 Creatinine 1.53 H Est GFR ( Amer) 55 L Est GFR (Non-Af Amer) 46 L Glucose 94 Calcium 8.7 Impressions: Ankle X-Ray 12/28/17 23:49 IMPRESSION: 1. No acute fracture or dislocation. Diffuse edema. 2010 [employer]- All Rights Reserved Foot X-Ray 12/28/17 23:49 IMPRESSION: 1. No acute fracture or dislocation. Diffuse edema. 2010 [employer]- All Rights Reserved Tibia/Fibula X-Ray 12/28/17 23:49 IMPRESSION: 1. No acute fracture or dislocation. Diffuse soft tissue edema. 2010 [employer]- All Rights Reserved Venous Doppler Study 12/29/17 00:00 IMPRESSION: NO EVIDENCE DVT OR SVT IN THE LEFT LEG. Abdomen/Pelvis CT 01/03/18 00:00 IMPRESSION: 1. No evidence of urolithiasis or obstructive uropathy. Stauffer bladder catheter is in place. 2. Bibasilar pulmonary consolidations with small bilateral pleural effusions. Small pericardial effusion. Assessment & Plan - Diagnosis (1) Cellulitis of left leg Is this a current diagnosis for this admission?: Yes (2) Drug rash Is this a current diagnosis for this admission?: Yes (3) HTN (hypertension) Qualifiers: Hypertension type: essential hypertension Qualified Code(s): I10 - Essential (primary) hypertension Is this a current diagnosis for this admission?: Yes (4) Personal history of traumatic brain injury Is this a current diagnosis for this admission?: Yes - Time Time Spent with patient: 25-34 minutes Medications reviewed and adjusted accordingly: Yes Anticipated discharge: SNF Within: Other - Inpatient Certification Based on my medical assessment, after consideration of the patient's comorbidities, presenting symptoms, or acuity I expect that the services needed warrant INPATIENT care.: Yes I certify that my determination is in accordance with my understanding of Medicare's requirements for reasonable and necessary INPATIENT services [42 CFR 412.3e].: Yes Medical Necessity: Need Close Monitoring Due to Risk of Patient Decompensation, Need For IV Fluids, Need for IV Antibiotics, Risk of Complication if Not Cared For in Hospital Post Hospital Care: D/C or Transfer Summary - Plan Summary Plan Summary: D/C IV Vancomycin and Zosyn coverage after tonight dosing as day # 7. Start on oral Keflex 500 mg p.o q8 from 01/06/18. Obtain cbc with diff and cmp in am.
[2018-01-05] MEDS: CEPHALEXIN 500 MG CAPSULE PO SCH (22:02)
[2018-01-06 05:19] LABS: ABSOLUTE BASOPHILS # (AUTO) 0.1 10^3/uL (0.0-0.2); ABSOLUTE EOSINOPHILS # (AUTO) 0.4 10^3/uL (0.0-0.6); ABSOLUTE LYMPHOCYTES (AUTO) 1.5 10^3/uL (0.5-4.7); ABSOLUTE MONOCYTES (AUTO) 0.7 10^3/uL (0.1-1.4); ABSOLUTE NEUT (AUTO) 6.6 10^3/uL (1.7-8.2); BASOPHILS % (AUTO) 1.6 % (0-2); EOSINOPHILS % (AUTO) 4.1 % (0-6); HEMATOCRIT 28.5 % (37.9-51.0); HEMOGLOBIN 9.9 g/dL (13.5-17.0); LYMPHOCYTES % (AUTO) 15.7 % (13-45); MEAN CORPUSCULAR HEMOGLOBIN 31.9 pg (27.0-33.4); MEAN CORPUSCULAR HGB CONC 34.8 g/dL (32.0-36.0); MEAN CORPUSCULAR VOLUME 92 fl (80-97); MONOCYTES % (AUTO) 7.6 % (3-13); PLATELET COUNT 267 10^3/uL (150-450); RED BLOOD COUNT 3.11 10^6/uL (4.35-5.55); RED CELL DISTRIBUTION WIDTH 13.8 % (11.5-14.0); TOTAL CELLS COUNTED % (AUTO) 100 %; WHITE BLOOD COUNT 9.4 10^3/uL (4.0-10.5)
[2018-01-06 05:48] LABS: ALANINE AMINOTRANSFERASE 25 U/L (21-72); ALBUMIN 2.7 g/dL (3.5-5.0); ALKALINE PHOSPHATASE 256 U/L (38-126); ANION GAP 6 (5-19); ASPARTATE AMINO TRANSFERASE 24 U/L (17-59); BILIRUBIN,DIRECT 0.2 mg/dL (0.0-0.4); BILIRUBIN,TOTAL 0.3 mg/dL (0.2-1.3); BLOOD UREA NITROGEN 18 mg/dL (7-20); CALCIUM 8.8 mg/dL (8.4-10.2); CARBON DIOXIDE 30 mmol/L (22-30); CHLORIDE 105 mmol/L (98-107); GLUCOSE 90 mg/dL (75-110); POTASSIUM 4.2 mmol/L (3.6-5.0); SODIUM 140.7 mmol/L (137-145); TOTAL PROTEIN 6.1 g/dL (6.3-8.2)
[2018-01-06] MEDS: LANSOPRAZOLE 30 MG TAB.RAP.DR PO SCH (06:17)
[2018-01-06] MEDS: CEPHALEXIN 500 MG CAPSULE PO SCH ×3 (06:17→21:48)
[2018-01-06] MEDS: NORMAL SALINE 1000 ML 1,000 ML IV PRN (06:18)
[2018-01-06] MEDS: MINERAL OIL/PETROLATUM,WHITE CREAM 114 GM TP SCH ×2 (09:40→21:48)
[2018-01-06] MEDS: LISINOPRIL 10 MG TABLET PO SCH (09:40)
[2018-01-06] MEDS: ASPIRIN 81 MG TABLET, ENT COATED PO SCH (09:40)
[2018-01-06] MEDS: PRENATAL VITAMIN W DHA CAPSULE PO SCH (09:40)
[2018-01-06] MEDS: TAMSULOSIN HCL 0.4 MG CAP.SR.24H PO SCH (17:04)
--- NOTE | 2018-01-06 18:52 | PDOC PROGRESS REPORT ---
Subjective Progress Note for:: 01/06/18 Subjective:: No chest pain or difficulty with breathing. No fever or chills. No nausea, vomiting or abdominal pain. Reason For Visit: LEFT LEG CELLULITIS; DRUG RASH Physical Exam Vital Signs: Temp Pulse Resp BP Pulse Ox 97.6 F 79 16 168/84 H 97 01/06/18 15:26 01/06/18 15:26 01/06/18 15:26 01/06/18 15:26 01/06/18 15:26 Intake & Output 01/05/18 01/06/18 01/07/18 06:59 06:59 06:59 Intake Total 3104 2590 872 Output Total 4550 3600 1300 Balance -4055 -5606 -055 Weight 116.1 kg 107.6 kg Physical Exam: General appearance: PRESENT: no acute distress, obese Head exam: PRESENT: atraumatic, normocephalic Eye exam: PRESENT: conjunctiva pink, EOMI, PERRLA. ABSENT: scleral icterus Ear exam: PRESENT: normal external ear exam Mouth exam: PRESENT: moist Respiratory exam: PRESENT: clear to auscultation charline Cardiovascular exam: PRESENT: RRR. ABSENT: diastolic murmur, rubs, systolic murmur Vascular exam: ABSENT: pallor GI/Abdominal exam: PRESENT: normal bowel sounds, soft. 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 Musculoskeletal exam: PRESENT: deformity Neurological exam: PRESENT: alert, awake, oriented to person, oriented to place , oriented to time, oriented to situation, CN II-XII grossly intact. ABSENT: motor sensory deficit Psychiatric exam: PRESENT: appropriate affect, normal mood. ABSENT: homicidal ideation, suicidal ideation Skin exam: PRESENT: dry, erythema - improving left leg erythema and scaly rash on left leg. Results Laboratory Results: 01/06/18 04:17 01/06/18 04:17 01/06/18 01/06/18 04:17 04:17 WBC 9.4 RBC 3.11 L Hgb 9.9 L Hct 28.5 L MCV 92 MCH 31.9 MCHC 34.8 RDW 13.8 Plt Count 267 Seg Neutrophils % 71.0 Lymphocytes % 15.7 Monocytes % 7.6 Eosinophils % 4.1 Basophils % 1.6 Absolute Neutrophils 6.6 Absolute Lymphocytes 1.5 Absolute Monocytes 0.7 Absolute Eosinophils 0.4 Absolute Basophils 0.1 Sodium 140.7 Potassium 4.2 Chloride 105 Carbon Dioxide 30 Anion Gap 6 BUN 18 Creatinine 1.43 H Est GFR ( Amer) > 60 Est GFR (Non-Af Amer) 49 L Glucose 90 Calcium 8.8 Total Bilirubin 0.3 AST 24 ALT 25 Alkaline Phosphatase 256 H Total Protein 6.1 L Albumin 2.7 L Impressions: Ankle X-Ray 12/28/17 23:49 IMPRESSION: 1. No acute fracture or dislocation. Diffuse edema. 2010 [employer]- All Rights Reserved Foot X-Ray 12/28/17 23:49 IMPRESSION: 1. No acute fracture or dislocation. Diffuse edema. 2010 [employer]- All Rights Reserved Tibia/Fibula X-Ray 12/28/17 23:49 IMPRESSION: 1. No acute fracture or dislocation. Diffuse soft tissue edema. 2010 [employer]- All Rights Reserved Venous Doppler Study 12/29/17 00:00 IMPRESSION: NO EVIDENCE DVT OR SVT IN THE LEFT LEG. Abdomen/Pelvis CT 01/03/18 00:00 IMPRESSION: 1. No evidence of urolithiasis or obstructive uropathy. Stauffer bladder catheter is in place. 2. Bibasilar pulmonary consolidations with small bilateral pleural effusions. Small pericardial effusion. Assessment & Plan - Diagnosis (1) Cellulitis of left leg Is this a current diagnosis for this admission?: Yes (2) Drug rash Is this a current diagnosis for this admission?: Yes (3) HTN (hypertension) Qualifiers: Hypertension type: essential hypertension Qualified Code(s): I10 - Essential (primary) hypertension Is this a current diagnosis for this admission?: Yes (4) Personal history of traumatic brain injury Is this a current diagnosis for this admission?: Yes - Time Time Spent with patient: 25-34 minutes Medications reviewed and adjusted accordingly: Yes Anticipated discharge: SNF Within: within 24 hours - Inpatient Certification Based on my medical assessment, after consideration of the patient's comorbidities, presenting symptoms, or acuity I expect that the services needed warrant INPATIENT care.: Yes I certify that my determination is in accordance with my understanding of Medicare's requirements for reasonable and necessary INPATIENT services [42 CFR 412.3e].: Yes Medical Necessity: Need Close Monitoring Due to Risk of Patient Decompensation, Need For IV Fluids, Risk of Complication if Not Cared For in Hospital Post Hospital Care: D/C or Transfer Summary - Plan Summary Plan Summary: Continue oral Keflex therapy. Maintain on all other current medication management. If he remain clinically stable consider transfer to [facility] tomorrow.
[2018-01-06] MEDS ORDERED: VANCOMYCIN HCL 750 MG in DEXTROSE 5%-WATER 250 ML IV SCH (22:00)
[2018-01-07] MEDS: CEPHALEXIN 500 MG CAPSULE PO SCH ×3 (05:57→21:04)
[2018-01-07] MEDS: LANSOPRAZOLE 30 MG TAB.RAP.DR PO SCH (05:57)
[2018-01-07] MEDS: NORMAL SALINE 1000 ML 1,000 ML IV PRN (05:57)
[2018-01-07] MEDS ORDERED: NORMAL SALINE 1000 ML 1,000 ML IV PRN (08:48)
--- NOTE | 2018-01-07 08:53 | PDOC PROGRESS REPORT ---
Subjective Progress Note for:: 01/07/18 Subjective:: No chest pain or difficulty with breathing. No fever or chills. Patient nurse reported frequent diarrhea with perineal region skin raw from cleanng. No nausea , vomiting or abdominal pain. Reason For Visit: LEFT LEG CELLULITIS; DRUG RASH Physical Exam Vital Signs: Temp Pulse Resp BP Pulse Ox 98.2 F 86 18 182/87 H 95 01/07/18 07:26 01/07/18 07:26 01/07/18 07:26 01/07/18 07:26 01/07/18 07:26 Intake & Output 01/06/18 01/07/18 01/08/18 06:59 06:59 06:59 Intake Total 2590 1972 Output Total 3600 3000 Balance -1010 -1028 Weight 107.6 kg 109.2 kg Physical Exam: General appearance: PRESENT: no acute distress, obese Head exam: PRESENT: atraumatic, normocephalic Eye exam: PRESENT: conjunctiva pink, EOMI, PERRLA. ABSENT: scleral icterus Ear exam: PRESENT: normal external ear exam Mouth exam: PRESENT: moist Respiratory exam: PRESENT: clear to auscultation charline Cardiovascular exam: PRESENT: RRR. ABSENT: diastolic murmur, rubs, systolic murmur GI/Abdominal exam: PRESENT: normal bowel sounds, soft. 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 Musculoskeletal exam: PRESENT: deformity Neurological exam: PRESENT: alert, awake, oriented to person, oriented to place , oriented to time, oriented to situation, CN II-XII grossly intact. ABSENT: motor sensory deficit Psychiatric exam: PRESENT: appropriate affect, normal mood. ABSENT: homicidal ideation, suicidal ideation Skin exam: PRESENT: dry, erythema - improving left leg erythema and scaly rash on left leg. Results Laboratory Results: 01/06/18 04:17 01/06/18 04:17 Impressions: Ankle X-Ray 12/28/17 23:49 IMPRESSION: 1. No acute fracture or dislocation. Diffuse edema. 2010 [employer]- All Rights Reserved Foot X-Ray 12/28/17 23:49 IMPRESSION: 1. No acute fracture or dislocation. Diffuse edema. 2010 [employer]- All Rights Reserved Tibia/Fibula X-Ray 12/28/17 23:49 IMPRESSION: 1. No acute fracture or dislocation. Diffuse soft tissue edema. 2010 [employer]- All Rights Reserved Venous Doppler Study 12/29/17 00:00 IMPRESSION: NO EVIDENCE DVT OR SVT IN THE LEFT LEG. Abdomen/Pelvis CT 01/03/18 00:00 IMPRESSION: 1. No evidence of urolithiasis or obstructive uropathy. Stauffer bladder catheter is in place. 2. Bibasilar pulmonary consolidations with small bilateral pleural effusions. Small pericardial effusion. Assessment & Plan - Diagnosis (1) Cellulitis of left leg Is this a current diagnosis for this admission?: Yes (2) Drug rash Is this a current diagnosis for this admission?: Yes (3) HTN (hypertension) Qualifiers: Hypertension type: essential hypertension Qualified Code(s): I10 - Essential (primary) hypertension Is this a current diagnosis for this admission?: Yes (4) Personal history of traumatic brain injury Is this a current diagnosis for this admission?: Yes (5) Diarrhea, unspecified Qualifiers: Diarrhea type: unspecified type Qualified Code(s): R19.7 - Diarrhea, unspecified Is this a current diagnosis for this admission?: Yes Plan: Start on Imodium 4mg p.o x 1 dose. Probable antibiotic associated but stool C. difficile reported negative. - Time Time Spent with patient: 25-34 minutes Medications reviewed and adjusted accordingly: Yes Anticipated discharge: SNF Within: Other - Inpatient Certification Based on my medical assessment, after consideration of the patient's comorbidities, presenting symptoms, or acuity I expect that the services needed warrant INPATIENT care.: Yes I certify that my determination is in accordance with my understanding of Medicare's requirements for reasonable and necessary INPATIENT services [42 CFR 412.3e].: Yes Medical Necessity: Need Close Monitoring Due to Risk of Patient Decompensation, Need For IV Fluids, Risk of Complication if Not Cared For in Hospital Post Hospital Care: D/C or Transfer Summary - Plan Summary Plan Summary: Increase Lisinopril to 20 mg p.o daily. Restart on HCTZ 12.5 mg p.o daily. Decrease IV fluid rate to 20 ml/hour. Imodium 4 mg p.o x 1 dose. Continue all other current medication management.
[2018-01-07] MEDS: PRENATAL VITAMIN W DHA CAPSULE PO SCH (09:31)
[2018-01-07] MEDS: LISINOPRIL 10 MG TABLET PO SCH (09:31)
[2018-01-07] MEDS: HYDROCHLOROTHIAZIDE 25 MG TABLET PO SCH (09:32)
[2018-01-07] MEDS: ASPIRIN 81 MG TABLET, ENT COATED PO SCH (09:32)
[2018-01-07] MEDS: MINERAL OIL/PETROLATUM,WHITE CREAM 114 GM TP SCH ×2 (09:54→21:06)
[2018-01-07] MEDS: TAMSULOSIN HCL 0.4 MG CAP.SR.24H PO SCH (17:08)
[2018-01-07] MEDS ORDERED: LOPERAMIDE HCL 2 MG CAPSULE PO ONE (18:24)
[2018-01-07] MEDS: PANTOT AC/MIN OIL/PET HY-PHL OINT 50 GM TOP SCH (18:28)
[2018-01-08] MEDS: CEPHALEXIN 500 MG CAPSULE PO SCH ×2 (05:17→13:12)
[2018-01-08] MEDS: LANSOPRAZOLE 30 MG TAB.RAP.DR PO SCH (05:18)
--- NOTE | 2018-01-08 08:38 | PDOC TRANSFER SUMMARY ---
General - Admit/Disc Date/PCP Admission Date/Primary Care Provider: 12/29/17 03:59 [facility] Discharge Date: 01/08/18 - Discharge Diagnosis (1) Cellulitis of left leg Is this a current diagnosis for this admission?: Yes (2) Drug rash Is this a current diagnosis for this admission?: Yes (3) HTN (hypertension) Is this a current diagnosis for this admission?: Yes (4) Personal history of traumatic brain injury Is this a current diagnosis for this admission?: Yes (5) Diarrhea, unspecified Is this a current diagnosis for this admission?: Yes - Additional Information Home Medications: Albuterol Sulfate [Proair HFA] 2 puff IH Q4HP PRN 12/29/17 Aspirin [Aspirin EC] 81 mg PO DAILY 12/29/17 Hydrochlorothiazide [Hydrodiuril 25 mg Tablet] 25 mg PO DAILY 12/29/17 Pnv,Calcium 72/Iron,Carb/Folic [ Plus Iron Tablet] 1 each PO DAILY 12/29 Cephalexin Monohydrate [Keflex 500 mg Capsule] 500 mg PO Q8 #15 capsule Lisinopril [Prinivil 10 mg Tablet] 20 mg PO DAILY tablet 01/08/18 Mineral Oil/Petrolatum,White [Eucerin Cream 114 gm] 1 applic TP Q12 jar Pantot AC/Min Oil/Pet Hy-Phl [Aquaphor W-Vilma Heal Oint 50 gm] 1 applic TOP TID tube 01/08/18 Tamsulosin HCl [Flomax 0.4 mg Cap.sr] 0.4 mg PO PCSUPPER cap.sr.24h 01/08/18 History of Present Illness Admission Date[facility]: [facility] Patient complains of: left leg worsening redness and pain History of Present Illness: EARL HAWLEY is a 67 year old male patient transferred from [facility] due to development of rash over left leg and worsening redness with pain in affected limb with cellulitis. No reported fever or chills. No nausea or vomiting. No chest pain or difficulty with breathing. He was recently transferred to [facility] for rehabilitation and continue management for his left leg cellulitis. Patient reported development on rash since he started taking Doxycycline for continued treatment for his left leg cellulitis. Hospital Course Hospital Course: Patient was admitted for worsening left leg cellulitis with possible rash reaction to oral Doxycycline therapy with increase scaly rash. He was treated with IV Vancomycin and Zosyn for 7 days with transition to oral Keflex. He responded to therapy with resolution of his cellulitis. The scaly rash resolved with application of Eucerin cream. He remain afebrile with normal WBC. His blood and urine cultures were no growth after appropriate incubation period. His hospitalization was remarkable for frequent diarrhea with development of perineum region excoriation from diarrhea. His stool evaluation for C.difficile was reported negative. He was treated with single dose Imodium with some improvement. His blood pressure medication was adjusted upward dosing due to persistent elevation. His Lisinopril may need further adjustment to get his systolic blood pressure less than 140mmHg Physical Exam Vital Signs: Temp Pulse Resp BP Pulse Ox 98.1 F 90 18 168/79 H 96 01/08/18 07:18 01/08/18 07:18 01/08/18 07:18 01/08/18 07:18 01/08/18 07:18 Intake & Output 01/07/18 01/08/18 01/09/18 06:59 06:59 06:59 Intake Total 1972 853 Output Total 3000 3175 Balance -1751 -8450 Weight 109.2 kg 113.5 kg General appearance: PRESENT: no acute distress, obese Head exam: PRESENT: atraumatic, normocephalic Eye exam: PRESENT: conjunctiva pink, EOMI, PERRLA. ABSENT: scleral icterus Ear exam: PRESENT: normal external ear exam Mouth exam: PRESENT: moist Respiratory exam: PRESENT: clear to auscultation charline Cardiovascular exam: PRESENT: RRR. ABSENT: diastolic murmur, rubs, systolic murmur GI/Abdominal exam: PRESENT: normal bowel sounds, soft. 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 Musculoskeletal exam: PRESENT: deformity Neurological exam: PRESENT: alert, awake, oriented to person, oriented to place , oriented to time, oriented to situation, CN II-XII grossly intact. ABSENT: motor sensory deficit Psychiatric exam: PRESENT: appropriate affect, normal mood. ABSENT: homicidal ideation, suicidal ideation Skin exam: PRESENT: dry, erythema -resolved. Results Laboratory Results: 01/06/18 04:17 01/06/18 04:17 Impressions: Ankle X-Ray 12/28/17 23:49 IMPRESSION: 1. No acute fracture or dislocation. Diffuse edema. 2010 [employer]- All Rights Reserved Foot X-Ray 12/28/17 23:49 IMPRESSION: 1. No acute fracture or dislocation. Diffuse edema. 2010 [employer]- All Rights Reserved Tibia/Fibula X-Ray 12/28/17 23:49 IMPRESSION: 1. No acute fracture or dislocation. Diffuse soft tissue edema. 2010 [employer]- All Rights Reserved Venous Doppler Study 12/29/17 00:00 IMPRESSION: NO EVIDENCE DVT OR SVT IN THE LEFT LEG. Abdomen/Pelvis CT 01/03/18 00:00 IMPRESSION: 1. No evidence of urolithiasis or obstructive uropathy. Stauffer bladder catheter is in place. 2. Bibasilar pulmonary consolidations with small bilateral pleural effusions. Small pericardial effusion. Transfer Plan - Disposition Transfer Plan: Transfer to [facility] today. Qualifiers - * PATIENT BEING DISCHARGED WITH ANY OF THE FOLLOWING DIAGNOSIS: No Plan Discharge Plan: Transfer to [facility] today.
[2018-01-08] MEDS: HYDROCHLOROTHIAZIDE 25 MG TABLET PO SCH (10:06)
[2018-01-08] MEDS: LISINOPRIL 10 MG TABLET PO SCH (10:06)
[2018-01-08] MEDS: PRENATAL VITAMIN W DHA CAPSULE PO SCH (10:07)
[2018-01-08] MEDS: ASPIRIN 81 MG TABLET, ENT COATED PO SCH (10:07)
[2018-01-08] MEDS: MINERAL OIL/PETROLATUM,WHITE CREAM 114 GM TP SCH (10:09)
[2018-01-08] MEDS: PANTOT AC/MIN OIL/PET HY-PHL OINT 50 GM TOP SCH ×3 (10:10→17:07)
[2018-01-08] MEDS: TAMSULOSIN HCL 0.4 MG CAP.SR.24H PO SCH (17:05)
[2018-01-08 19:35] VITALS: BP 176/81
== END 2018-01-08 20:25 | DRG 603 ==
LOC: ER 22:35 → EH 12-29 03:59 → 4S 12-29 06:05
PROVIDERS: ADMIT Internal Medicine Geriatric Medicine; ATTEND Internal Medicine Geriatric Medicine
PROC: 3E0234Z Introduction of Serum, Toxoid and Vaccine into Muscle, Percutaneous Approach (ICD-10-PCS; principal; 2018-01-08)
DX: L03.116 Cellulitis of left lower limb (principal); T36.4X5A Adverse effect of tetracyclines, initial encounter; L27.1 Localized skin eruption due to drugs and medicaments taken internally; I10 Essential (primary) hypertension; R31.9 Hematuria, unspecified; R19.7 Diarrhea, unspecified; Y92.122 Bedroom in nursing home as the place of occurrence of the external cause; Z87.820 Personal history of traumatic brain injury; Z23 Encounter for immunization
CPT/HCPCS: 36415; 74176; 80048; 80053; 80202; 83735; 85025; 85610; 85730; 87040; 87086; 87493; 90471; 90686; 93971; 99285; G0008; J1650; J2543; J3370; J3490; J7030; J7060